=== PATIENT | female | born 1955 | race Asian ===

== ENCOUNTER 2019-11-12 00:20 | Inpatient (IN) | payer MEDICARE, MEDICAID ==
[~2019-11-12] VITALS: Ht 154.9 cm; Wt 48.3 kg
[2019-11-12] VITALS (8 sets, daily range): BP systolic 115–135; BP diastolic 61–85
[~2019-11-12 00:20] MED LIST: ACETAMINOP160 MG/51 ORAL; AMBIEN5 MG GT; AMLODIPINE BESY10 MG GT; CATAPRES0.1 MG GT; CRANBERRY425 MG GT; FAMOTIDINE40 MG/5 ML GT; IBUPROFEN600 MG GT; MOM30 ML GT; NORCO 10-325 T1 EACH GT; RILUZOLE50 M1 GT; SELENIUM200 MC2 GT; THEOPHYLLI GT; THERA-M CAPLET1 EAC1 GT
--- NOTE | 2019-11-12 00:25 | NUR ---
ED Nurse Note: brought in by [facility] accompanied by RT from [facility] c/o WBC 34.4. Trach Vented; received vent settings; verified by ERMD. Presents with no signs and symptoms of respiratory distress or fever. Resulted negative for covid 10/24. Changed into hospital gown; attached to monitor. Vitals stable. Rectal temp 98.6F. patient ao3; aphasic; spontaneous eye opening; tracks movement with eyes; able to make needs known via communication board; quadriplegic. EKG done at bedside by ERtmilton; NSR 86. Tracheostomy noted; portex 8; AC 16; TV 450; Peep 5; Fio2 40%. RT at bedside; PT tolerating vent settings; SPO2 98% RR 23. GT flushed and patent. Received verbal order from ERMD for renee insertion. Skin intact. IV established prior to arrival; right forearm 22g; flushed and patent. Repositioned for comfort; elevated bilateral upper and lower extremities per pt request. PUI airborne precaution obserbed. All safety measures met; side rails raised; bed locked at lowest postion; call scott and communication board within reach.
--- NOTE | 2019-11-12 00:30 | NUR ---
ED Nurse Note: iv access established. renee insterted. blood, initial lactic, blood cultures, urine, mrsa vre cre swab, covid swab collected; sent down to lab.
[2019-11-12 01:05] LABS: APPEARANCE,URINE CLEAR; BILIRUBIN, URINE NEGATIVE (NEGATIVE); COLOR,URINE PALE YELLOW; GLUCOSE, URINE (UA) NEGATIVE (NEGATIVE); KETONES,URINE NEGATIVE (NEGATIVE); LEUKOCYTE ESTERASE ,URINE 1+ (NEGATIVE); NITRITE,URINE NEGATIVE (NEGATIVE); PH,URINE 8 (4.5-8.0); PROTEIN,URINE NEGATIVE (NEGATIVE); UROBILINOGEN,URINE NORMAL MG/DL (0.0-1.0)
[2019-11-12 01:10] LABS: HEMATOCRIT 35.8 % (37.0-47.0); HEMOGLOBIN 11.5 G/DL (12.0-16.0); MEAN CORPUSCULAR VOLUME 105 FL (80-99); PLATELET COUNT 231 K/UL (150-450); RED BLOOD COUNT 3.42 M/UL (4.20-5.40); RED CELL DISTRIBUTION WIDTH 13.3 % (11.6-14.8)
[2019-11-12] MEDS ORDERED: ASPIR 8181 MG GT (01:19)
[2019-11-12] MEDS ORDERED: OMEPRAZOLE20 M2 GT (01:19)
[2019-11-12] MEDS ORDERED: MILK OF MA400 MG/51 GT (01:19)
[2019-11-12] MEDS ORDERED: ZOSYN 3.373.375 GM/1 IVPB (01:19)
[2019-11-12] MEDS ORDERED: BENADRYL25 MG ORAL (01:19)
[2019-11-12] MEDS ORDERED: AMBIEN5 MG GT (01:19)
[2019-11-12] MEDS ORDERED: HYDROCODON-ACE1 EA13 ORAL (01:19)
[2019-11-12 01:24] LABS: WHITE BLOOD COUNT 30.9 K/UL (4.8-10.8)
--- NOTE | 2019-11-12 01:24 | Emergency Room Report ---
History of Present Illness General Chief Complaint: Abnormal Labs Source: EMS Present Illness HPI Patient presents with reports of elevated white blood cell count Patient herself does have underlying dementia limits the history present illness there was no reports of vomiting or diarrhea patient has a tracheostomy And vent dependent There was no reports of any other rash Allergies: Coded Allergies: No Known Allergies (Unverified , 05/19/19) COVID-19 Screening Contact w/high risk pt: Yes Recent Travel to affected area: No Experienced COVID-19 symptoms?: No COVID-19 Testing performed [employer]: Yes COVID-19 Screening: Negative COVID-19 COVID-19 Testing Source: 10/24 @ [facility] [place] Patient History Limited by: medical condition Past Medical History: see triage record Reviewed Nursing Documentation: PMH: Agreed; PSxH: Agreed Nursing Documentation-PMH Hx Cardiac Problems: No - Aphonia, Dysphagia, Generalized muscle weakness Hx Hypertension: No - Joint contracture Hx Asthma: No - Chronic Respiratory Failure, Hypoxia, Hypercapnia Hx COPD: No - Tracheostomy Hx Cancer: No Hx Gastrointestinal Problems: Yes - Anemia, Gastrostomy Hx Neurological Problems: No Review of Systems All Other Systems: limited - Other than the ones mentioned in the history of present illness all others are reviewed however they do stay limited due to the patient's mental status Physical Exam Vital Signs Date Time Temp Pulse Resp B/P (MAP) Pulse Ox O2 Delivery O2 Flow Rate FiO2 11/12/19 00:21 98.6 83 23 128/67 (87) 98 Mechanical Ventilator 11/12/19 00:30 40 Sp02 EP Interpretation: reviewed, normal General Appearance: no apparent distress Head: normocephalic, atraumatic Eyes: bilateral eye PERRL, bilateral eye EOMI ENT: EOM grossly intact, normal pharynx Neck: other - Tracheostomy in place no obvious crepitus Respiratory: no respiratory distress, no retraction, crackles - Bilaterally Cardiovascular #1: regular rate, rhythm Gastrointestinal: non tender, soft Musculoskeletal: other - Patient moves both upper extremities equally Neurologic: responsive Skin: no rash Lymphatic: no adenopathy Procedures Critical Care Time Critical Care Time 50 minutes for multiple re-evaluations initial critical status concern for deterioration and possible not including any procedural time Medical Decision Making Diagnostic Impression: Primary Impression: Sepsis Additional Impression: Pneumonia ER Course Patient is a fairly complex patient with multiple differential to consideration including but not limited to cardiac cardiopulmonary and vascular emergencies Also consideration and concern for infectious process given the patient's abnormal blood work in the nursing facility is entertained Patient's blood work here reveals elevated white blood cell count x-ray was inconclusive therefore CT was obtained which does show bilateral infiltrates Along with questionable gallbladder edema Patient CT does show some abnormality General surgery was consulted patient initiated on IV antibiotics and admitted for further care Labs Test 11/12/19 00:25 White Blood Count 30.9 K/UL (4.8-10.8) Red Blood Count 3.42 M/UL (4.20-5.40) Hemoglobin 11.5 G/DL (12.0-16.0) Hematocrit 35.8 % (37.0-47.0) Mean Corpuscular Volume 105 FL (80-99) Mean Corpuscular Hemoglobin 33.6 PG (27.0-31.0) Mean Corpuscular Hemoglobin Concent 32.1 G/DL (32.0-36.0) Red Cell Distribution Width 13.3 % (11.6-14.8) Platelet Count 231 K/UL (150-450) Mean Platelet Volume 7.0 FL (6.5-10.1) Neutrophils (%) (Auto) % (45.0-75.0) Lymphocytes (%) (Auto) % (20.0-45.0) Monocytes (%) (Auto) % (1.0-10.0) Eosinophils (%) (Auto) % (0.0-3.0) Basophils (%) (Auto) % (0.0-2.0) Differential Total Cells Counted 100 Neutrophils % (Manual) 87 % (45-75) Lymphocytes % (Manual) 10 % (20-45) Monocytes % (Manual) 3 % (1-10) Eosinophils % (Manual) 0 % (0-3) Basophils % (Manual) 0 % (0-2) Band Neutrophils 0 % (0-8) Platelet Estimate Adequate Platelet Morphology Normal Urine Color Pale yellow Urine Appearance Clear Urine pH 8 (4.5-8.0) Urine Specific [place] 1.010 (1.005-1.035) Urine Protein Negative (NEGATIVE) Urine Glucose (UA) Negative (NEGATIVE) Urine Ketones Negative (NEGATIVE) Urine Blood Negative (NEGATIVE) Urine Nitrite Negative (NEGATIVE) Urine Bilirubin Negative (NEGATIVE) Urine Urobilinogen Normal MG/DL (0.0-1.0) Urine Leukocyte Esterase 1+ (NEGATIVE) Urine RBC 0-2 /HPF (0 - 2) Urine WBC 2-4 /HPF (0 - 2) Urine Squamous Epithelial Cells Few /LPF (NONE/OCC) Urine Bacteria None /HPF (NONE) Sodium Level 142 MMOL/L (136-145) Potassium Level 3.4 MMOL/L (3.5-5.1) Chloride Level 106 MMOL/L (98-107) Carbon Dioxide Level 25 MMOL/L (21-32) Anion Gap 11 mmol/L (5-15) Blood Urea Nitrogen 19 mg/dL (7-18) Creatinine 0.8 MG/DL (0.55-1.30) Estimat Glomerular Filtration Rate > 60 mL/min (>60) Glucose Level 140 MG/DL (74-106) Lactic Acid Level 1.60 mmol/L (0.4-2.0) Calcium Level 8.9 MG/DL (8.5-10.1) Total Bilirubin 0.6 MG/DL (0.2-1.0) Aspartate Amino Transf (AST/SGOT) 37 U/L (15-37) Alanine Aminotransferase (ALT/SGPT) 47 U/L (12-78) Alkaline Phosphatase 123 U/L (46-116) Total Creatine Kinase 77 U/L (26-308) Creatine Kinase MB 0.9 NG/ML (0.0-3.6) Creatine Kinase MB Relative Index 1.1 Troponin I 0.009 ng/mL (0.000-0.056) Pro-B-Type Natriuretic Peptide 178 pg/mL (0-125) Total Protein 7.4 G/DL (6.4-8.2) Albumin 3.3 G/DL (3.4-5.0) Globulin 4.1 g/dL Albumin/Globulin Ratio 0.8 (1.0-2.7) Lipase 293 U/L (73-393) Rhythm Strip Diag. Results EP Interpretation: yes Rate: 77 Rhythm: NSR, no PVC's, no ectopy CT/MRI/US Diagnostic Results CT/MRI/US Diagnostic Results : Impression CT abdomen pelvisIMPRESSION: 1. Cholelithiasis with suggestion of gallbladder wall thickening. Correlation with clinical findings is recommended to assess for the possibility of acute cholecystitis. Ultrasound may be helpful for further assessment. 2. Nonobstructing left renal stone. 3. Possible fecal impaction. 4. Significant atelectasis in the left lower lobe. There are also patchy opacities in the right lower lobe, including a nodular opacity which could be inflammatory in etiology. Cannot exclude pneumonia. However, neoplasm is also within the differential. For low-risk or high- risk patients consider a follow-up chest CT at 3 months. If unchanged consider an additional follow-up CT at 18-24 months. Alternatively (or additionally) PET/CT or tissue sampling could be performed. Last Vital Signs Date Time Temp Pulse Resp B/P (MAP) Pulse Ox O2 Delivery O2 Flow Rate FiO2 11/12/19 00:30 98.6 86 23 128/67 98 Mechanical Ventilator 40 Status: improved Disposition: ADMITTED INPATIENT Condition: Serious Referrals: Stas Kapoor MD (PCP) Sharri Soto DO Nov 12, 2019 01:24
[2019-11-12 01:43] LABS: ANION GAP 11 mmol/L (5-15); BLOOD UREA NITROGEN 19 mg/dL (7-18); CALCIUM 8.9 MG/DL (8.5-10.1); CARBON DIOXIDE 25 MMOL/L (21-32); CHLORIDE 106 MMOL/L (98-107); CREATININE 0.8 MG/DL (0.55-1.30); POTASSIUM 3.4 MMOL/L (3.5-5.1); SODIUM 142 MMOL/L (136-145)
[2019-11-12 01:56] LABS: ALANINE AMINOTRANSFERASE 47 U/L (12-78); ALBUMIN 3.3 G/DL (3.4-5.0); ALBUMIN/GLOBULIN RATIO 0.8 (1.0-2.7); ALKALINE PHOSPHATASE 123 U/L (46-116); ASPARTATE AMINO TRANSFERASE 37 U/L (15-37); BILIRUBIN,TOTAL 0.6 MG/DL (0.2-1.0); CKMB 0.9 NG/ML (0.0-3.6); CREATINE KINASE 77 U/L (26-308)
--- NOTE | 2019-11-12 01:58 | NUR ---
ED Nurse Note: patient sleeping in bed with no signs of acute distress. arousable to name and light stimuli. vitals remain stable to baseline. discussed plan of care; patient aware and cooperative to plan; awaiting pending CT scan.
[2019-11-12] MEDS ORDERED: cefTRIAXone 1 GM in NS 55 ML IVPB ONE (03:00)
[2019-11-12] MEDS ORDERED: Azithromycin 500 MG in NS 275 ML IV ONE (03:00)
--- NOTE | 2019-11-12 03:18 | NUR ---
ED Nurse Note: Patient down to CT with electronic train control technician and RT. Attached to monitor; vitals stable.
--- NOTE | 2019-11-12 03:45 | NUR ---
ED Nurse Note: patient back from imaging without incident. reattached to monitor and vent. repositioned for comfort. patient presents with no acute signs of distress. denies respiratory distress or pain. vitals stable to baseline. all safety measures met; will continue to monitor.
--- NOTE | 2019-11-12 04:05 | NUR ---
TRANSFER TO FLOOR: Patient transferred to [facility] 236 as ordered, per chiara bain. Report given to MARCELLUS russo. patient stable for transfer. transported to unit via gurney with RT, Lux and RN. PUI airborne transport precautions observed. belongings and admission packet sent with patient.
--- NOTE | 2019-11-12 04:06 | Diagnostic Imaging Report ---
EXAM: CT Abdomen and Pelvis Without Intravenous Contrast CLINICAL HISTORY: PAIN TECHNIQUE: Axial computed tomography images of the abdomen and pelvis without intravenous contrast. CTDI is 3.9 mGy and DLP is 214 mGy-cm. One or more of the following dose reduction techniques were used: automated exposure control, adjustment of the mA and/or kV according to patient size, use of iterative reconstruction technique. COMPARISON: No relevant prior studies available. FINDINGS: Limitations: Assessment of the abdominal and pelvic viscera slightly limited in the absence of intravenous and oral contrast. Lung bases: There is consolidation in the left lower lobe with shift of mediastinum to the left, supporting a diagnosis of atelectasis. However, patchy opacity with consolidation in the right lower lobe could represent pneumonia and/or atelectasis. There is a nodular opacity in the right lower lobe posteriorly posterior basilar segment which measures 1.3 x 1.4 x 1.6 cm. This may be inflammatory in etiology but neoplasm cannot be excluded. ABDOMEN: Liver: Unremarkable. Gallbladder and bile ducts: Several gallstones are noted. There is suggestion of gallbladder wall thickening. No ductal dilation. Pancreas: Unremarkable. No ductal dilation. Spleen: Unremarkable. No splenomegaly. Adrenals: Unremarkable. No mass. Kidneys and ureters: The right renal collecting system is prominent but without lino hydronephrosis. There is a 7 mm nonobstructing stone in the lower pole of the left kidney. Both ureters are normal as seen. Stomach and bowel: A gastrostomy tube is in appropriate position. There is no bowel obstruction. A moderate amount of stool is noted throughout the colon, particularly within the distal sigmoid colon and rectum, possibly representing mild fecal impaction. There are no inflammatory changes in the bowel mesentery.. PELVIS: Appendix: No findings to suggest acute appendicitis. Bladder: There is an indwelling Feldman catheter was is presumed to be clamped as the bladder is moderately distended with fluid, with a small air-fluid level. No stones. Reproductive: There is a 9 mm calcification in the fundus of the uterus, likely small calcified uterine fibroids. The adnexa are unremarkable. ABDOMEN and PELVIS: Intraperitoneal space: Unremarkable. No free air. No significant fluid collection. Bones/joints: No acute fracture. No dislocation. Soft tissues: Unremarkable. Vasculature: Unremarkable. Lymph nodes: There are small calcified lymph nodes in the subcarinal and left hilar regions. IMPRESSION: 1. Cholelithiasis with suggestion of gallbladder wall thickening. Correlation with clinical findings is recommended to assess for the possibility of acute cholecystitis. Ultrasound may be helpful for further assessment. 2. Nonobstructing left renal stone. 3. Possible fecal impaction. 4. Significant atelectasis in the left lower lobe. There are also patchy opacities in the right lower lobe, including a nodular opacity which could be inflammatory in etiology. Cannot exclude pneumonia. However, neoplasm is also within the differential. For low-risk or high- risk patients consider a follow-up chest CT at 3 months. If unchanged consider an additional follow-up CT at 18-24 months. Alternatively (or additionally) PET/CT or tissue sampling could be performed.
--- NOTE | 2019-11-12 04:10 | NUR ---
NURSE NOTES: pt transferred to the unit via gurney. Awake, A/O x3, able to make needs known through communication board. SR noted. Trach to vent, Portex 8, AC 16/450/40%/5. GT intact and flushing well. F/C intact and draining well. IV on R FA 22G, asymptomatic. Skin intact. Belonging checked. Bed in the lowest position. Side rails up x3. Call light within reach. Will continue to monitor.
--- NOTE | 2019-11-12 05:00 | NUR ---
NURSE NOTES: notified regarding new admit and admit orders received. Pt sleeping in the bed. Will continue to monitor.
[2019-11-12] MEDS ORDERED: HYDROcodone/Acetamin 10/325 tab ORAL SCH (05:45)
[2019-11-12] MEDS ORDERED: DiphenhydrAMINE 25mg/10ml Elixir GT PRN (05:45)
[2019-11-12] MEDS ORDERED: Heparin 1000 units/ml 1ml Vial INJ PRN (06:04)
--- NOTE | 2019-11-12 07:30 | NUR ---
HAND-OFF: Report given to MARCELLUS Caldera.
--- NOTE | 2019-11-12 08:06 | NUR ---
NURSE NOTES: Received patient from MARCELLUS Saleem. Patient is on bed with open eyes with no signs of distress. Patient is able to express her needs with her facial expression and the communication board. Patient is trach to vent Portex 8, AC 16, TV 450, Fio2 of 40%, and PEEP of 5. Patient is on G-tube feeding running Nepro at 55mL/hr. IV site is on right upper arm noted. Bed is at its lowest position, locked, call light in reach, and x3 bed rails are up. Will continue to monitor.
[2019-11-12] MEDS: Theophylline 80mg/15ml GT SCH ×2 (09:20→20:49)
[2019-11-12] MEDS: Heparin 5000 units/ml inj SUBQ SCH ×2 (09:22→20:52)
[2019-11-12] MEDS: Acetaminophen 650mg/20.3ml GT PRN ×2 (09:41→22:32)
--- NOTE | 2019-11-12 09:41 | NUR ---
NURSE NOTES: Clarified HIDA scan order from Dr. Kapoor. said to wait for Covid-19 result before HIDA scan.
--- NOTE | 2019-11-12 09:47 | NUR ---
RD ASSESSMENT & RECOMMENDATIONS SEE CARE ACTIVITY FOR COMPLETE ASSESSMENT DAILY ESTIMATED NEEDS: Needs based on Critical care, 48kg 22-28 kcals/kg 1248-1673 total kcals 1.2-2 g protein/kg 58-96 g total protein 25-30 mL/kg 4215-8232 total fluid mLs NUTRITION DIAGNOSIS: Swallowing difficulty r/t respiratory status as evidenced by pt w/ ALS, vent dep via trach, w/ GT feeds. CURRENT TF:Glucerna 1.2 @55ml/hr x20 hrs ENTERAL NUTRITION RECOMMENDATIONS: Glucerna 1.2 @ 55ml/hr x20 hrs to provide 1100ml, 1320 kcal, 66g pro, 886ml free H2O - Maintain current TF order - HOB over 30 degrees - Water flush of 170ml q 8hrs ADDITIONAL RECOMMENDATIONS: 1) Per SNF record: last hi=775kwt (10/28), HT=61" 2) Check lytes daily, replete as needed (low K) 3) Monitor BGs, need for NISS 4) Check A1C for eval of glycemic control
--- NOTE | 2019-11-12 10:15 | Consultation ---
DATE OF CONSULTATION: 11/12/2019 PULMONARY CONSULTATION CONSULTING PHYSICIAN: Stas Kapoor MD REASON FOR CONSULTATION: Respiratory failure. REASON FOR ADMISSION: Sepsis. HISTORY OF PRESENT ILLNESS: The patient is a 64-year-old female, who presents with significant leukocytosis with concern for cholecystitis. The patient is seen and evaluated in the emergency room. The patient also noted to have significant leukocytosis at the [facility], was transferred for further evaluation and intervention. The patient is chronically ill and bedbound. The patient is a functional quadriplegic. She has history of ALS and is unable to get off the ventilator. The patient has chronic pain, chronic insomnia, chronic debility. The patient events were reviewed. group home notes reviewed. ER notes reviewed. Case discussed with the ER physician. PAST MEDICAL HISTORY: Notable for respiratory failure, chronic; generalized muscle weakness; generalized muscle atrophy; ALS; anemia; G-tube; chronic insomnia; and chronic pain. MEDICATIONS: Reviewed. ALLERGIES: Reviewed. SOCIAL HISTORY: Resides at [facility]. Nonsmoker, nondrinker. Essentially bedbound and fully dependent. REVIEW OF SYSTEMS: Unobtainable. FAMILY HISTORY: Otherwise noncontributory. PHYSICAL EXAMINATION: GENERAL: An ill-appearing female. VITAL SIGNS: Reviewed. Temperature 98.2, pulse 92, respirations 18, and blood pressure 122/80. Saturation 99%. HEENT: Overall negative. The patient is able to move her eyes. NECK: Supple. Tracheostomy is midline. LUNGS: With moderate air entry. No rhonchi. CARDIAC: S1, S2. Regular rate and rhythm without murmurs. ABDOMEN: Soft. G-tube in place. EXTREMITIES: No cyanosis or clubbing. Atrophy noted. NEUROLOGIC: Functional quadriplegic. LABORATORY DATA: Reviewed. CT with cholelithiasis with suggestion of gallbladder wall thickening. Left renal stone. Fecal impaction. Atelectasis, left lower lobe with questionable pneumonia. IMPRESSION: 1. Leukocytosis with concern for sepsis. 2. Possible cholecystitis, cholelithiasis. 3. Functional quadriplegic. 4. ALS. 5. Tracheostomy. 6. G-tube. 7. Mild protein-calorie malnutrition. 8. Anemia. RECOMMENDATIONS: Supportive care. IV antibiotics. ID evaluation. Surgical evaluation. HIDA scan if able. Resume feedings and monitor. Resume ventilator support. Resume [facility] medications and pain control, and we will follow clinically and discharge once stable. Stas Kapoor M.D. DR: SHAN JOB#: [id number] CC:
[2019-11-12] MEDS: Vancomycin 750mg/D5W 275ml IVPB SCH ×2 (10:53)
--- NOTE | 2019-11-12 11:51 | NUR ---
CASE MANAGEMENT: INITIAL REVIEW 64YR OLD [facility] CC: ABNORMAL LAB; ELEVATED WBC 34.4 SI:SEPSIS . TRACHEOSTOMY ASIA . PNA 98.6 83 23 128/67 98% ON MECHANICAL VENT WBC 30.9 K+3.4 BUN 19 BG 140 ALKP 123 BNP 178 IS:IVF NS BOLUS X1 IV ROCEPHIN X1 IV [address] X1 [address] Abdomen Pelvis WO Contrast-possibility of acute cholecystitis.Nonobstructing left renal stone. Possible fecal impaction.Significant atelectasis in the left lower lobe. There are also patchy opacities in the right lower lobe, including a nodular opacity which could be inflammatory in etiology. \: 2W STEP DOWN UNIT DCP: BACK TO [facility] WHEN STABLE PLAN: US ABD NM HIDA SCAN CONT VENT SUPPORT SPUTUM CX R/O COVID-19 ISOLATION PRECAUTION CASE MANAGEMENT: REVIEW SI:SEPSIS . PNA 98.6 83 23 128/67 98% ON MECHANICAL VENT TRACH WBC 30.9 K+3.4 BUN 19 BG 140 ALKP 123 BNP 178 IS:IV VANCOMYCIN QD IV ZOSYN TID NORVASC GT BID HEPARIN SQ BID THEOPHYLLINE GT BID TYLENOL GT Q4HR/PRN \: 2W STEP DOWN UNIT DCP: BACK TO [facility] WHEN STABLE PLAN: US ABD NM HIDA SCAN CONT VENT SUPPORT SPUTUM CX R/O COVID-19 ISOLATION PRECAUTION
--- NOTE | 2019-11-12 12:59 | Diagnostic Imaging Report ---
Indication: Chest pain Technique: XRAY Chest 1v Comparison: 05/25/2019 Findings: There is a dense consolidation in the retrocardiac left lung. Some patchy opacities also noted within the right lower lung. A tracheostomy tube is noted. Heart size and mediastinal contours are stable. No evidence of pneumothorax. Osseous structures demonstrate no acute abnormality. Impression: Dense retrocardiac consolidation which may be related to atelectasis and/or pneumonia. Additional patchy opacities in the right lower lung. Possibility of multifocal pneumonia not excluded. Relation clinical findings and follow-up recommended. Indwelling tracheostomy tube.
[2019-11-12] MEDS: Piperacillin/Tazobactam 3.375 GM in NS 110 ML IVPB SCH ×2 (13:16→22:31)
--- NOTE | 2019-11-12 14:10 | Consultation ---
History of Present Illness General Date patient seen: Nov 12, 2019 Reason for Hospitalization: Abnormal Labs Present Illness HPI This is a 64-year-old female multiple medical comorbidities vent dependent on tracheostomy care dependent long-term patient who presented with significant leukocytosis 30,[address] identified cholecystitis. Surgery called to evaluate and assist with care. Patient seen, patient evaluated, chart reviewed. CODE STATUS pending. Patient awake alert able to respond but cannot talk given tracheostomy. Denies any current pain. States she is hungry. Allergies: Coded Allergies: No Known Allergies (Unverified , 05/19/19) COVID-19 Screening Contact w/high risk pt: Yes Recent Travel to affected area: No Experienced COVID-19 symptoms?: No Medication History Scheduled Amlodipine Besylate* (Amlodipine Besylate*), 10 MG GT DAILY, (Reported) Aspirin* (Aspir 81*), 81 MG GT DAILY, (Reported) Cranberry Extract (Cranberry), 425 MG GT BID, (Reported) Famotidine (Famotidine), 40 MG GT BID, (Reported) Hydrocodone Bit/Acetaminophen 10-325* (Hydrocodon-Acetaminophn 10-325*), 1 TAB ORAL Q4H, (Reported) Ibuprofen (Motrin), 400 MG GT Q6HR, (Reported) Magnesium Hydroxide (Milk of Magnesia), 30 ML ORAL BEDTIME, (Reported) Magnesium Hydroxide* (Milk Of Magnesia*), 30 ML GT DAILY, (Reported) Multivits,Ca,Minerals/Iron/Fa (Thera-M Caplet), 1 EACH GT DAILY, (Reported) Omeprazole (Omeprazole), 20 MG GT DAILY, (Reported) Uqakehumunke-Fqug-Lildwtmj,Iso (Zosyn 3.375 Gm Pre Mix-Bag), 3.375 GM IVPB EVERY 8 HOURS, (Reported) Riluzole* (Riluzole*), 50 MG GT EVERY 12 HOURS, (Reported) Selenomethionine (Selenium), 200 MCG GT BID, (Reported) Theophylline Anhydrous (Theophylline), 80 MG GT BID, (Reported) Scheduled PRN Acetaminophen* (Acetaminophen*), 640 MG ORAL DAILY PRN for Mild Pain/Temp > 100.5, (Reported) Clonidine Hcl* (Catapres*), 0.1 MG GT EVERY 4 HOURS PRN for For High Blood Pressure, (Reported) Diphenhydramine Hcl* (Benadryl*), 25 MG ORAL Q6H PRN for Itching, (Reported) Hydrocodone Bit/Acetaminophen 10-325* ([place] 10-325*), 1 TAB GT Q8HR PRN for For Pain, (Reported) Zolpidem Tartrate* (Ambien*), 5 MG GT BEDTIME PRN for Insomnia, (Reported) Zolpidem Tartrate* (Ambien*), 5 MG GT BEDTIME PRN for Insomnia, (Reported) Patient History Limited by: medical condition History Provided By: Patient, Medical Record, PMD Healthcare decision maker Resuscitation status Advanced Directive on File Past Medical/Surgical History Past Medical/Surgical History: (1) SOB (shortness of breath) (2) Elevated troponin (3) Hypokalemia (4) ALS (amyotrophic lateral sclerosis) (5) Chest pain (6) Pneumonia (7) Sepsis Review of Systems Review of Symptoms General ROS: no weight loss or fever Psychological ROS: no depression or mood changes, no memory loss Ophthalmic ROS: no visual changes or eye irritation ENT ROS: no nasal congestion, hearing loss, dizziness Allergy and Immunology ROS: no allergic symptoms or urticaria Hematological and Lymphatic ROS: no swollen glands, unusual bleeding or bruising Endocrine ROS: no polyuria, polydipsia, weight changes, temperature intolerance Respiratory ROS: no cough, shortness of breath, or wheezing Cardiovascular ROS: no chest pain or dyspnea on exertion Gastrointestinal ROS: denies abdominal pain, bright red blood in stool. Musculoskeletal ROS: no myalgias or arthralgias Neurological ROS: no TIA or stroke symptoms Dermatological ROS: no new or changing skin lesions, rashes or pruritis Physical Exam Physical Exam General appearance: alert, cooperative, no distress, appears stated age Head: Normocephalic, without obvious abnormality, atraumatic Eyes: conjunctivae/corneas clear. PERRL, EOM's intact. Fundi benign Throat: Lips, mucosa, and tongue normal. Teeth and gums normal Neck: supple, symmetrical, trachea midline, no adenopathy, thyroid: not enlarged, symmetric, no tenderness/mass/nodules, no carotid bruit and no JVD trach Lungs: clear to auscultation bilaterally Heart: regular rate and rhythm, S1, S2 normal, no murmur, click, rub or gallop Abdomen: soft, non-tender. Bowel sounds normal. No masses, no organomegaly Extremities: extremities normal, atraumatic, no cyanosis or edema Pulses: 2+ and symmetric Skin: Skin color, texture, turgor normal. No rashes or lesions Neurologic: Grossly normal Last 24 Hour Vital Signs Date Time Temp Pulse Resp B/P (MAP) Pulse Ox O2 Delivery O2 Flow Rate FiO2 11/12/19 12:00 97.9 93 22 115/79 (91) 100 11/12/19 12:00 Mechanical Ventilator 11/12/19 12:00 40 11/12/19 11:51 85 11/12/19 11:16 100 19 40 11/12/19 09:21 92 122/80 11/12/19 08:00 40 11/12/19 08:00 98.2 92 18 122/80 (94) 99 11/12/19 08:00 Mechanical Ventilator 11/12/19 07:45 90 11/12/19 07:09 96 17 100 Mechanical Ventilator 40 11/12/19 07:09 96 17 40 11/12/19 04:36 Mechanical Ventilator 11/12/19 04:22 101 11/12/19 04:10 98.6 76 20 123/61 100 Mechanical Ventilator 40 11/12/19 04:00 98.6 76 20 123/61 100 Mechanical Ventilator 40 11/12/19 03:32 72 20 40 11/12/19 03:00 98.6 73 14 121/66 100 Mechanical Ventilator 40 11/12/19 01:55 98.6 75 16 117/61 100 Mechanical Ventilator 40 11/12/19 00:30 70 22 40 11/12/19 00:30 40 11/12/19 00:30 98.6 86 23 128/67 98 Mechanical Ventilator 40 11/12/19 00:21 98.6 83 23 128/67 (87) 98 Mechanical Ventilator Intake and Output 11/11/19 11/12/19 19:00 07:00 Intake Total 0 ml Output Total 1220 ml Balance -1220 ml Intake Oral 0 ml Tube Feeding 0 ml Output Urine Total 1220 ml Laboratory Tests Test 11/12/19 00:25 White Blood Count 30.9 K/UL (4.8-10.8) *H Red Blood Count 3.42 M/UL (4.20-5.40) L Hemoglobin 11.5 G/DL (12.0-16.0) L Hematocrit 35.8 % (37.0-47.0) L Mean Corpuscular Volume 105 FL (80-99) H Mean Corpuscular Hemoglobin 33.6 PG (27.0-31.0) H Mean Corpuscular Hemoglobin Concent 32.1 G/DL (32.0-36.0) Red Cell Distribution Width 13.3 % (11.6-14.8) Platelet Count 231 K/UL (150-450) Mean Platelet Volume 7.0 FL (6.5-10.1) Neutrophils (%) (Auto) % (45.0-75.0) Lymphocytes (%) (Auto) % (20.0-45.0) Monocytes (%) (Auto) % (1.0-10.0) Eosinophils (%) (Auto) % (0.0-3.0) Basophils (%) (Auto) % (0.0-2.0) Differential Total Cells Counted 100 Neutrophils % (Manual) 87 % (45-75) H Lymphocytes % (Manual) 10 % (20-45) L Monocytes % (Manual) 3 % (1-10) Eosinophils % (Manual) 0 % (0-3) Basophils % (Manual) 0 % (0-2) Band Neutrophils 0 % (0-8) Platelet Estimate Adequate Platelet Morphology Normal Urine Color Pale yellow Urine Appearance Clear Urine pH 8 (4.5-8.0) Urine Specific [place] 1.010 (1.005-1.035) Urine Protein Negative (NEGATIVE) Urine Glucose (UA) Negative (NEGATIVE) Urine Ketones Negative (NEGATIVE) Urine Blood Negative (NEGATIVE) Urine Nitrite Negative (NEGATIVE) Urine Bilirubin Negative (NEGATIVE) Urine Urobilinogen Normal MG/DL (0.0-1.0) Urine Leukocyte Esterase 1+ (NEGATIVE) H Urine RBC 0-2 /HPF (0 - 2) Urine WBC 2-4 /HPF (0 - 2) Urine Squamous Epithelial Cells Few /LPF (NONE/OCC) Urine Bacteria None /HPF (NONE) Sodium Level 142 MMOL/L (136-145) Potassium Level 3.4 MMOL/L (3.5-5.1) L Chloride Level 106 MMOL/L (98-107) Carbon Dioxide Level 25 MMOL/L (21-32) Anion Gap 11 mmol/L (5-15) Blood Urea Nitrogen 19 mg/dL (7-18) H Creatinine 0.8 MG/DL (0.55-1.30) Estimat Glomerular Filtration Rate > 60 mL/min (>60) Glucose Level 140 MG/DL (74-106) H Lactic Acid Level 1.60 mmol/L (0.4-2.0) Calcium Level 8.9 MG/DL (8.5-10.1) Total Bilirubin 0.6 MG/DL (0.2-1.0) Aspartate Amino Transf (AST/SGOT) 37 U/L (15-37) Alanine Aminotransferase (ALT/SGPT) 47 U/L (12-78) Alkaline Phosphatase 123 U/L (46-116) H Total Creatine Kinase 77 U/L (26-308) Creatine Kinase MB 0.9 NG/ML (0.0-3.6) Creatine Kinase MB Relative Index 1.1 Troponin I 0.009 ng/mL (0.000-0.056) Pro-B-Type Natriuretic Peptide 178 pg/mL (0-125) H Total Protein 7.4 G/DL (6.4-8.2) Albumin 3.3 G/DL (3.4-5.0) L Globulin 4.1 g/dL Albumin/Globulin Ratio 0.8 (1.0-2.7) L Lipase 293 U/L (73-393) Height (Feet): 5 Height (Inches): 1.00 Weight (Pounds): 106 Medications Current Medications Medications (Trade) Dose Ordered Sig/Kunal Route PRN Reason Start Time Stop Time Status Last Admin Dose Admin Acetaminophen (Tylenol) 650 mg Q4H PRN GT Mild Pain (Pain Scale 1-3) 11/12/19 05:30 12/12/19 05:29 11/12/19 09:41 Acetaminophen/ Hydrocodone Bitart ([place] 10/325) 1 tab Q8H PRN GT For Pain 11/12/19 05:45 11/19/19 05:44 Al Hydroxide/Mg Hydroxide (Mylanta) 30 ml Q4H PRN GT stomach upset 11/12/19 05:30 12/12/19 05:29 Amlodipine Besylate (Norvasc) 10 mg DAILY GT 11/12/19 09:00 12/12/19 08:59 11/12/19 09:21 Clonidine HCl (Catapres Tab) 0.1 mg Q4H PRN GT SBP>160 11/12/19 05:45 02/10/20 05:44 Diphenhydramine HCl (Benadryl) 25 mg Q6H PRN GT Itching 11/12/19 05:45 12/12/19 05:44 Heparin Sodium (Porcine) (Heparin 5000 units/ml) 5,000 units EVERY 12 HOURS SUBQ 11/12/19 09:00 12/27/19 08:59 11/12/19 09:22 Heparin Sodium (Porcine) (Heparin) 2,000 unit ONCE PRN INJ RADIOLOGY 11/12/19 06:04 11/12/19 23:59 Lansoprazole (Prevacid) 30 mg DAILY GT 11/12/19 09:00 12/12/19 08:59 11/12/19 09:20 Magnesium Hydroxide (Mom) 30 ml BEDTIME GT 11/12/19 21:00 12/12/19 20:59 Piperacillin Sod/ Tazobactam Sod 3.375 gm/Sodium Chloride 110 ml @ 27.5 mls/hr Q8HR IVPB 11/12/19 14:00 11/19/19 13:59 11/12/19 13:16 Theophylline (Theophylline) 80 mg Q12HR GT 11/12/19 09:00 02/10/20 08:59 11/12/19 09:20 Vancomycin HCl (Vanco pharmacy to dose) 1 ea DAILY PRN MISC Per rx protocol 11/12/19 05:30 12/12/19 05:29 Vancomycin HCl 750 mg/Dextrose 275 ml @ 183.333 mls/hr Q24H IVPB 11/12/19 11:00 11/17/19 10:59 11/12/19 10:53 Zolpidem Tartrate (Ambien) 5 mg BEDTIME PRN GT Insomnia 11/12/19 05:45 11/19/19 05:44 Assessment/Plan Problem List: (1) Pneumonia ICD Codes: J18.9 - Pneumonia, unspecified organism SNOMED: 448193747 (2) Hypokalemia ICD Codes: E87.6 - Hypokalemia SNOMED: 41793798 (3) SOB (shortness of breath) ICD Codes: R06.02 - Shortness of breath SNOMED: 654846802 (4) Sepsis Assessment & Plan: 64-year-old female significant leukocytosis 30,000, anemia, CT as below potential cholecystitis. Surgery called to evaluate. Patient seen patient evaluated chart reviewed patient denies any discomfort. Unable to speak but she can follow directions and mouth or voice herself with facial reactions. When asked about pain denies states she is hungry when palpated in the right upper quadrant denies any pain no abdominal tenderness on examination. Labs noted imaging reviewed. Ultrasound abdomen ordered to evaluate gallbladder more specific than CT scan continue antibiotics per infectious disease IV fluids okay for diet from surgical standpoint Based on clinical examination unlikely cholecystitis no Hardwick's no tenderness no abdominal complaints Potential pneumonia Preventative measures taken air mattress given patient's baseline condition malnutrition and her bedbound condition. OPTi foam presentation dressings applied and bony prominences Turn every 2 hours Nutritional optimization ABDOMEN: Liver: Unremarkable. Gallbladder and bile ducts: Several gallstones are noted. There is suggestion of gallbladder wall thickening. No ductal dilation. Pancreas: Unremarkable. No ductal dilation. Spleen: Unremarkable. No splenomegaly. Adrenals: Unremarkable. No mass. Kidneys and ureters: The right renal collecting system is prominent but without lino hydronephrosis. There is a 7 mm nonobstructing stone in the lower pole of the left kidney. Both ureters are normal as seen. Stomach and bowel: A gastrostomy tube is in appropriate position. There is no bowel obstruction. A moderate amount of stool is noted throughout the colon, particularly within the distal sigmoid colon and rectum, possibly representing mild fecal impaction. There are no inflammatory changes in the bowel mesentery.. PELVIS: Appendix: No findings to suggest acute appendicitis. Bladder: There is an indwelling Feldman catheter was is presumed to be clamped as the bladder is moderately distended with fluid, with a small air-fluid level. No stones. Reproductive: There is a 9 mm calcification in the fundus of the uterus, likely small calcified uterine fibroids. The adnexa are unremarkable. ABDOMEN and PELVIS: Intraperitoneal space: Unremarkable. No free air. No significant fluid collection. Bones/joints: No acute fracture. No dislocation. Soft tissues: Unremarkable. Vasculature: Unremarkable. Lymph nodes: There are small calcified lymph nodes in the subcarinal and left hilar regions. IMPRESSION: 1. Cholelithiasis with suggestion of gallbladder wall thickening. Correlation with clinical findings is recommended to assess for the possibility of acute cholecystitis. Ultrasound may be helpful for further assessment. 2. Nonobstructing left renal stone. 3. Possible fecal impaction. 4. Significant atelectasis in the left lower lobe. ICD Codes: A41.9 - Sepsis, unspecified organism SNOMED: 61414155 (5) Chest pain ICD Codes: R07.9 - Chest pain, unspecified SNOMED: 07930382 (6) ALS (amyotrophic lateral sclerosis) ICD Codes: G12.21 - Amyotrophic lateral sclerosis SNOMED: 50600926 (7) Elevated troponin ICD Codes: R79.89 - Other specified abnormal findings of blood chemistry SNOMED: 052493896, 395235748, 286766899 Aly Awad Nov 12, 2019 14:10
--- NOTE | 2019-11-12 16:00 | Consultation ---
DATE OF CONSULTATION: 11/12/2019 INFECTIOUS DISEASES CONSULTATION CONSULTING PHYSICIAN: Thai Manning MD. REFERRING PHYSICIAN: Stas Kapoor MD. REASON FOR CONSULTATION: Leukocytosis. HISTORY OF PRESENTING ILLNESS: This is a 64-year-old lady with history of respiratory failure, status post tracheostomy, status post G-tube placement, muscle weakness, dysphagia, who comes in with leukocytosis. An Infectious Diseases consultation has been obtained for antibiotics. PAST MEDICAL HISTORY: 1. History of dysphagia. 2. Status post G-tube placement. 3. Respiratory failure, status post tracheostomy. 4. History of anemia. 5. Dementia. SOCIAL HISTORY: Unknown. FAMILY HISTORY: Unknown. REVIEW OF SYSTEMS: Unable to obtain currently. MEDICATIONS: As an inpatient, she is on milk of magnesia, Zosyn, IV vancomycin, subcutaneous heparin, amlodipine, theophylline, lansoprazole, heparin, clonidine, Benadryl, [place], Ambien, Tylenol, Mylanta. ALLERGIES: No known drug allergies. PHYSICAL EXAMINATION: VITAL SIGNS: Temperature of 98.2, T-max of 98.6, pulse of 92, respiratory rate 18, blood pressure 122/80, O2 saturation of 99%. Examination deferred due to possibility of COVID-19. LABORATORY AND DIAGNOSTIC DATA: White count 30.9, hemoglobin 11.5, hematocrit 35.8, MCV 105, platelet count of 231,000 with neutrophils of 67%. Sodium 142, potassium 3.4, chloride 106, bicarb 25, BUN 19, creatinine 0.8, glucose 140, calcium 8.9. Total bilirubin 0.6. AST 37, ALT 47, alkaline phosphatase 123. CK of 77, CK-MB 0.9. Troponin 0.009. Beta natriuretic peptide 178. Total protein 7.4. Albumin 3.3, lipase of 293. UA showing [address] to [address] abdomen and pelvis showing cholelithiasis with suggestion of gallbladder wall thickening, rule out cholecystitis, nonobstructing left renal stone, atelectasis left lower lobe, patchy opacities in the right lower lobe. ASSESSMENT: This is a 64-year-old lady with history of respiratory failure, status post tracheostomy, dysphagia, status post G-tube placement, dementia, who comes in with leukocytosis and was found to have: 1. Possible cholecystitis. 2. Rule out COVID-19 pneumonia. 3. Respiratory failure. 4. Leukocytosis. PLAN: 1. Continue IV vancomycin and Zosyn. 2. Continue isolation. 3. COVID-19 test is pending. 4. We will order sputum for Gram stain and culture. 5. We will order a HIDA scan. 6. We will follow up cultures and adjust antibiotics accordingly. I would like to thank, Dr. Kapoor for this consultation. Thai Manning M.D. DR: GROVER JOB#: [id number] CC: Stas Kapoor MD.; Fax#: [phone]
[2019-11-12] MEDS: HYDROcodone/Acetamin 10/325 tab GT PRN (16:16)
[2019-11-12] MEDS ORDERED: NS 275ml ONE (17:27)
--- NOTE | 2019-11-12 17:50 | NUR ---
NURSE NOTES: Sputum specimen is collected, will sent to lab.
--- NOTE | 2019-11-12 19:47 | NUR ---
HAND-OFF: Report given to MARCELLUS Merida. Patient is stable at this moment and endorsed plan of care.
--- NOTE | 2019-11-12 19:48 | NUR ---
NURSE NOTES: received pt from Kacie RN., and Verenice RN., pt is awake and resting on the bed. Aox3 at this time. pt's trach in place, no SOB noted, O2sat is at 99%. pt's Gtube site intact, clean, and patent. right FA 22G intact, clean, and patent. Feldman cath is draining well with gravity. call light within reach. bed at the lowest position, alarmed, and locked. will continue to monitor pt with plan of care.
[2019-11-12] MEDS: Milk of Magnesia 30ml Ud GT SCH (20:49)
[2019-11-12] MEDS: Zolpidem 5mg tab GT PRN (20:57)
[2019-11-13] VITALS: BP 128/70
[2019-11-13 04:00] VITALS: BP 126/63
[2019-11-13] MEDS: Piperacillin/Tazobactam 3.375 GM in NS 110 ML IVPB SCH ×3 (05:23→21:27)
[2019-11-13] MEDS: HYDROcodone/Acetamin 10/325 tab GT PRN ×3 (05:30→22:15)
[2019-11-13 05:55] LABS: HEMATOCRIT 38.2 % (37.0-47.0); HEMOGLOBIN 12.7 G/DL (12.0-16.0); MEAN CORPUSCULAR VOLUME 100 FL (80-99); PLATELET COUNT 278 K/UL (150-450); RED BLOOD COUNT 3.82 M/UL (4.20-5.40); RED CELL DISTRIBUTION WIDTH 12.9 % (11.6-14.8); WHITE BLOOD COUNT 16.4 K/UL (4.8-10.8)
--- NOTE | 2019-11-13 06:00 | NUR ---
NURSE NOTES: cleaned pt, small BM noted, new gown provided, new blanket provided. oral care given. no SOB noted. no bleeding noted at this time. call light within reach.
[2019-11-13 06:20] LABS: ALANINE AMINOTRANSFERASE 31 U/L (12-78); ALBUMIN 3.6 G/DL (3.4-5.0); ALBUMIN/GLOBULIN RATIO 0.8 (1.0-2.7); ALKALINE PHOSPHATASE 131 U/L (46-116); AMYLASE 48 U/L (25-115); ANION GAP 13 mmol/L (5-15); ASPARTATE AMINO TRANSFERASE 18 U/L (15-37); BILIRUBIN,TOTAL 0.4 MG/DL (0.2-1.0); BLOOD UREA NITROGEN 13 mg/dL (7-18); CALCIUM 9.6 MG/DL (8.5-10.1); CARBON DIOXIDE 23 MMOL/L (21-32); CHLORIDE 107 MMOL/L (98-107); CREATININE 0.7 MG/DL (0.55-1.30); POTASSIUM 2.8 MMOL/L (3.5-5.1); SODIUM 145 MMOL/L (136-145)
--- NOTE | 2019-11-13 06:48 | NUR ---
NURSE NOTES: left message to Dr. Kapoor regarding low potassium 2.8. Will wait for call back.
--- NOTE | 2019-11-13 07:10 | NUR ---
HAND-OFF: Report given to Ata GERMAIN., pt remains stable condition. endorsed plan of care.
--- NOTE | 2019-11-13 07:15 | NUR ---
NURSE NOTES: Received change of shift report from Anju GERMAIN. Pt is awake, alert, on trach to vent, able to communicate via letter/board, oriented x2 to name/purpose. Portex 8.0 with vent settings AC16, VT450, Peep 5, FI02 40% at 99% O2Sat, with slightly diminished bilateral lung sounds. NSR on nurse monitoring, HR 75, with slightly weak peripheral pulse on palpation. Temp 98.2F axillary. GT with feeding Glucerna 1.2 infusing at 40ml/hour, with zero residual. Abdomen is round, soft, nontender to touch with hypoactive bowel sounds. Feldman catheter is present, draining mildly cloudy/light yellow urine. No skin issues noted. Right FA #22G peripheral IV, TKO, patent/intact. Pt is on pressure releasing mattress, HOB at 30degrees, bed locked, in lowest position, three side rails up, and call light is placed within easy reach. Will continue to monitor pt and follow plan of care per MD orders and protocol.
[2019-11-13 08:00] VITALS: BP 128/72
[2019-11-13] MEDS ORDERED: Sodium Chloride for KCL Premix X 4hrs IV SCH (09:00)
--- NOTE | 2019-11-13 09:00 | NUR ---
NURSE NOTES: AM meds were administered. Pt is being administered KCL 40meq via GT and KCL 40meq via IV, total of 80meq per Dr. Kapoor's order, to replace K level of 2.8 from this morning's lab/result. IV KCL is being Y-cited with NS per pharmacist recommendation to prevent severe site/burning as pt only has small gauge peripheral IV access and no central line. VS remain stable. Oral care was done and pt suctioned. Pt was repositioned. Currently denies any pain or discomfort.
[2019-11-13] MEDS: Heparin 5000 units/ml inj SUBQ SCH ×2 (09:27→21:28)
[2019-11-13] MEDS: Theophylline 80mg/15ml GT SCH ×2 (09:28→21:27)
--- NOTE | 2019-11-13 10:32 | Pulmonology Progress Note ---
Subjective Allergies: Coded Allergies: No Known Allergies (Unverified , 05/19/19) Subjective care noted wbc better ID noted Objective Last 24 Hour Vital Signs Date Time Temp Pulse Resp B/P (MAP) Pulse Ox O2 Delivery O2 Flow Rate FiO2 11/13/19 09:28 77 126/63 11/13/19 08:26 77 11/13/19 07:00 86 16 40 11/13/19 04:03 Mechanical Ventilator 11/13/19 04:00 40 11/13/19 04:00 97.9 99 19 126/63 (84) 100 11/13/19 04:00 84 11/13/19 03:44 80 20 40 11/13/19 00:00 40 11/13/19 00:00 98.0 97 20 128/70 (89) 100 11/13/19 00:00 Mechanical Ventilator 11/12/19 23:46 73 11/12/19 23:12 102 21 40 11/12/19 20:00 80 11/12/19 20:00 Mechanical Ventilator 11/12/19 20:00 98.2 100 20 135/77 (96) 100 11/12/19 20:00 40 11/12/19 19:19 109 26 40 11/12/19 16:06 98.1 108 20 134/85 (101) 100 11/12/19 16:00 Mechanical Ventilator 11/12/19 16:00 40 11/12/19 15:24 87 11/12/19 15:17 78 16 40 11/12/19 12:00 97.9 93 22 115/79 (91) 100 11/12/19 12:00 Mechanical Ventilator 11/12/19 12:00 40 11/12/19 11:51 85 11/12/19 11:16 100 19 40 Intake and Output 11/12/19 11/13/19 19:00 07:00 Intake Total 465.000 ml 697.5 ml Output Total 1400 ml 600 ml Balance -935.000 ml 97.5 ml Intake Oral 0 ml Free Water 80 ml IV Total 385.000 ml 137.5 ml Tube Feeding 80 ml 480 ml Output Urine Total 1400 ml 600 ml # Bowel Movements 4 4 Objective GENERAL: An ill-appearing female. on vent HEENT: Overall negative. The patient is able to move her eyes. NECK: Supple. Tracheostomy is midline. LUNGS: With moderate air entry. No rhonchi. CARDIAC: S1, S2. Regular rate and rhythm without murmurs. ABDOMEN: Soft. G-tube in place. EXTREMITIES: No cyanosis or clubbing. Atrophy noted. NEUROLOGIC: Functional quadriplegic. Microbiology Date/Time Source Procedure Growth Status 11/12/19 00:35 Blood Blood Culture - Preliminary NO GROWTH AFTER 24 HOURS Resulted 11/12/19 00:25 Blood Blood Culture - Preliminary NO GROWTH AFTER 24 HOURS Resulted Laboratory Tests 11/13/19 05:20: White Blood Count 16.4H, Red Blood Count 3.82L, Hemoglobin 12.7, Hematocrit 38.2 , Mean Corpuscular Volume 100H, Mean Corpuscular Hemoglobin 33.2H, Mean Corpuscular Hemoglobin Concent 33.2, Red Cell Distribution Width 12.9, Platelet Count 278, Mean Platelet Volume 6.7, Neutrophils (%) (Auto) , Lymphocytes (%) ( Auto) , Monocytes (%) (Auto) , Eosinophils (%) (Auto) , Basophils (%) (Auto) , Neutrophils % (Manual) [Pending], Lymphocytes % (Manual) [Pending], Platelet Estimate [Pending], Platelet Morphology [Pending], Erythrocyte Sedimentation Rate [Pending], Prothrombin Time 11.2, Prothromb Time International Ratio 1.0, Activated Partial Thromboplast Time 28, Sodium Level 145, Potassium Level 2.8L, Chloride Level 107, Carbon Dioxide Level 23, Anion Gap 13, Blood Urea Nitrogen 13, Creatinine 0.7, Estimat Glomerular Filtration Rate > 60, Glucose Level 158H , Lactic Acid Level 1.40, Calcium Level 9.6, Total Bilirubin 0.4, Aspartate Amino Transf (AST/SGOT) 18, Alanine Aminotransferase (ALT/SGPT) 31, Alkaline Phosphatase 131H, C-Reactive Protein, Quantitative 11.8H, Total Protein 8.2, Albumin 3.6, Globulin 4.6, Albumin/Globulin Ratio 0.8L, Amylase Level 48, Lipase 309 Current Medications Medications (Trade) Dose Ordered Sig/Kunal Route PRN Reason Start Time Stop Time Status Last Admin Dose Admin Acetaminophen (Tylenol) 650 mg Q4H PRN GT Mild Pain (Pain Scale 1-3) 11/12/19 05:30 12/12/19 05:29 11/12/19 22:32 Acetaminophen/ Hydrocodone Bitart ([place] 10/325) 1 tab Q8H PRN GT For Pain 11/12/19 05:45 11/19/19 05:44 11/13/19 05:30 Al Hydroxide/Mg Hydroxide (Mylanta) 30 ml Q4H PRN GT stomach upset 11/12/19 05:30 12/12/19 05:29 Amlodipine Besylate (Norvasc) 10 mg DAILY GT 11/12/19 09:00 12/12/19 08:59 11/13/19 09:28 Clonidine HCl (Catapres Tab) 0.1 mg Q4H PRN GT SBP>160 11/12/19 05:45 02/10/20 05:44 Diphenhydramine HCl (Benadryl) 25 mg Q6H PRN GT Itching 11/12/19 05:45 12/12/19 05:44 Heparin Sodium (Porcine) (Heparin 5000 units/ml) 5,000 units EVERY 12 HOURS SUBQ 11/12/19 09:00 12/27/19 08:59 11/13/19 09:27 Lansoprazole (Prevacid) 30 mg DAILY GT 11/12/19 09:00 12/12/19 08:59 11/13/19 09:28 Magnesium Hydroxide (Mom) 30 ml BEDTIME GT 11/12/19 21:00 12/12/19 20:59 11/12/19 20:49 Piperacillin Sod/ Tazobactam Sod 3.375 gm/Sodium Chloride 110 ml @ 27.5 mls/hr Q8HR IVPB 11/12/19 14:00 11/19/19 13:59 11/13/19 05:23 Potassium Chloride 100 ml @ 100 mls/hr Q1HR IVPB 11/13/19 09:00 11/13/19 12:59 11/13/19 10:20 Sodium Chloride 400 ml @ 100 mls/hr Q4H IV 11/13/19 09:00 11/13/19 12:59 11/13/19 09:29 Theophylline (Theophylline) 80 mg Q12HR GT 11/12/19 09:00 02/10/20 08:59 11/13/19 09:28 Vancomycin HCl (Vanco pharmacy to dose) 1 ea DAILY PRN MISC Per rx protocol 11/12/19 05:30 12/12/19 05:29 Vancomycin HCl 750 mg/Dextrose 275 ml @ 183.333 mls/hr Q24H IVPB 11/12/19 11:00 11/17/19 10:59 11/12/19 10:53 Zolpidem Tartrate (Ambien) 5 mg BEDTIME PRN GT Insomnia 11/12/19 05:45 11/19/19 05:44 11/12/19 20:57 Assessment/Plan Assessment/Plan IMPRESSION: 1. Leukocytosis with concern for sepsis. 2. Possible cholecystitis, cholelithiasis. 3. Functional quadriplegic. 4. ALS. 5. Tracheostomy. 6. G-tube. 7. Mild protein-calorie malnutrition. 8. Anemia. PLAN vent support iv antibiotics routine care pain management monitor for change await improvement in labs await final cultures once stable, transfer to snf no wean off load impression, plan, and exam edited and reviewed in detail care discussed with Stas Granado MD Nov 13, 2019 10:32
--- NOTE | 2019-11-13 10:44 | History and Physical Report ---
DATE OF ADMISSION: 11/12/2019 CHIEF COMPLAINT: Sepsis. HISTORY OF PRESENT ILLNESS: The patient is an unfortunate 64-year-old female. She has a history of chronic respiratory failure, is vent dependent. She has a history of ALS, quadriplegia, and dysphagia. [facility] with complaints of abdominal pain and leukocytosis. The patient is awake. It is difficult to obtain a history as she is currently on the ventilator. At the prison, she had a white count of 30,000. CT scan in the ER showed evidence of possible cholecystitis. Surgery has now evaluated the patient and the plan is for the patient to go to the OR. PAST MEDICAL HISTORY: As above. PAST SURGICAL HISTORY: Includes a trach and a G-tube. CURRENT MEDICATIONS: Reconciled and reviewed. ALLERGIES: None. FAMILY HISTORY: None. SOCIAL HISTORY: There is no known history of tobacco, ethanol, or drugs. REVIEW OF SYSTEMS: Unobtainable. PHYSICAL EXAMINATION: VITAL SIGNS: Temperature 98 degrees, pulse 97, respirations 20, and blood pressure 134/85. GENERAL: The patient is a thin female, in no apparent distress. She is awake. HEENT: Her pupils are equal, round, and reactive to light. Sclerae anicteric. Oropharynx clear. NECK: Supple. Trach site is clean. HEART: Regular rate and rhythm. LUNGS: Clear. ABDOMEN: Soft, nontender, and nondistended. EXTREMITIES: Without clubbing, cyanosis, or edema. LABORATORY DATA: White count 30,000, hemoglobin 11, hematocrit 33, and platelet count of 231,000. Sodium 142, potassium 3.4, chloride 106, bicarb 25, BUN 19, creatinine 0.8. Coags are normal. CT shows cholelithiasis, gallbladder wall thickening consistent with cholecystitis. There are also noted to be opacities in the right lower lobe. ASSESSMENT: This is an unfortunate elderly female with a history of chronic respiratory failure, ALS, dysphagia, admitted with complaints of sepsis secondary to cholecystitis and possible pneumonia. PLAN: 1. Surgical evaluation for cholecystectomy. 2. Continue vent support, respiratory treatments. 3. NPO. 4. Continue IV hydration. 5. Pulmonary, Infectious Disease, and surgical consultations to be obtained. Harry Reaz M.D. DR: RON JOB#: [id number] CC:
[2019-11-13] MEDS: Vancomycin 750mg/D5W 275ml IVPB SCH ×2 (11:39)
[2019-11-13 12:00] VITALS: BP 120/58
--- NOTE | 2019-11-13 12:00 | NUR ---
NURSE NOTES: Pt remains afebrile with stable VS. Oral care was done. Pt repositioned. Pt was seen by Juaquin. No new orders were received at this time.
--- NOTE | 2019-11-13 14:02 | NUR ---
NURSE NOTES: Pt was administered [place] per PRN order for severe pain, as pt communicates via letter/board that she is having generalized body aches and displays facial grimacing. VS remain stable. Will continue to monitor.
--- NOTE | 2019-11-13 15:00 | NUR ---
NURSE NOTES: Pt reports total pain relief after receiving [place]. VS remain stable. Pt is resting comfortably.
[2019-11-13 16:00] VITALS: BP 121/71
--- NOTE | 2019-11-13 16:21 | Surgery Progress Note ---
Surgery Progress Note Subjective Additional Comments wbc improving labs noted exam stable us held for micro Objective Last 24 Hour Vital Signs Date Time Temp Pulse Resp B/P (MAP) Pulse Ox O2 Delivery O2 Flow Rate FiO2 11/13/19 16:00 98.4 73 19 121/71 (88) 100 11/13/19 16:00 40 11/13/19 16:00 Mechanical Ventilator 11/13/19 14:32 98.2 11/13/19 12:00 98.1 79 18 120/58 (78) 100 11/13/19 12:00 85 11/13/19 12:00 Mechanical Ventilator 11/13/19 11:00 82 22 40 11/13/19 09:28 77 126/63 11/13/19 09:00 40 11/13/19 08:26 77 11/13/19 08:00 98.2 78 20 128/72 (90) 100 11/13/19 08:00 40 11/13/19 08:00 Mechanical Ventilator 11/13/19 07:00 86 16 40 11/13/19 04:03 Mechanical Ventilator 11/13/19 04:00 40 11/13/19 04:00 97.9 99 19 126/63 (84) 100 11/13/19 04:00 84 11/13/19 03:44 80 20 40 11/13/19 00:00 40 11/13/19 00:00 98.0 97 20 128/70 (89) 100 11/13/19 00:00 Mechanical Ventilator 11/12/19 23:46 73 11/12/19 23:12 102 21 40 11/12/19 20:00 80 11/12/19 20:00 Mechanical Ventilator 11/12/19 20:00 98.2 100 20 135/77 (96) 100 11/12/19 20:00 40 11/12/19 19:19 109 26 40 I&O Intake and Output 11/12/19 11/13/19 19:00 07:00 Intake Total 465.000 ml 697.5 ml Output Total 1400 ml 600 ml Balance -935.000 ml 97.5 ml Intake Oral 0 ml Free Water 80 ml IV Total 385.000 ml 137.5 ml Tube Feeding 80 ml 480 ml Output Urine Total 1400 ml 600 ml # Bowel Movements 4 4 Cardiovascular: RSR Respiratory: decreased breath sounds Abdomen: soft, non-tender, present bowel sounds, decreased bowel sounds Extremities: no tenderness, no cyanosis Laboratory Tests Test 11/13/19 05:20 White Blood Count 16.4 K/UL (4.8-10.8) H Red Blood Count 3.82 M/UL (4.20-5.40) L Hemoglobin 12.7 G/DL (12.0-16.0) Hematocrit 38.2 % (37.0-47.0) Mean Corpuscular Volume 100 FL (80-99) H Mean Corpuscular Hemoglobin 33.2 PG (27.0-31.0) H Mean Corpuscular Hemoglobin Concent 33.2 G/DL (32.0-36.0) Red Cell Distribution Width 12.9 % (11.6-14.8) Platelet Count 278 K/UL (150-450) Mean Platelet Volume 6.7 FL (6.5-10.1) Neutrophils (%) (Auto) % (45.0-75.0) Lymphocytes (%) (Auto) % (20.0-45.0) Monocytes (%) (Auto) % (1.0-10.0) Eosinophils (%) (Auto) % (0.0-3.0) Basophils (%) (Auto) % (0.0-2.0) Differential Total Cells Counted 100 Neutrophils % (Manual) 82 % (45-75) H Lymphocytes % (Manual) 16 % (20-45) L Monocytes % (Manual) 2 % (1-10) Eosinophils % (Manual) 0 % (0-3) Basophils % (Manual) 0 % (0-2) Band Neutrophils 0 % (0-8) Platelet Estimate Adequate Platelet Morphology Normal Red Blood Cell Morphology Normal Erythrocyte Sedimentation Rate 75 MM/HR (0-30) H Prothrombin Time 11.2 SEC (9.30-11.50) Prothromb Time International Ratio 1.0 (0.9-1.1) Activated Partial Thromboplast Time 28 SEC (23-33) Sodium Level 145 MMOL/L (136-145) Potassium Level 2.8 MMOL/L (3.5-5.1) L Chloride Level 107 MMOL/L (98-107) Carbon Dioxide Level 23 MMOL/L (21-32) Anion Gap 13 mmol/L (5-15) Blood Urea Nitrogen 13 mg/dL (7-18) Creatinine 0.7 MG/DL (0.55-1.30) Estimat Glomerular Filtration Rate > 60 mL/min (>60) Glucose Level 158 MG/DL (74-106) H Lactic Acid Level 1.40 mmol/L (0.4-2.0) Calcium Level 9.6 MG/DL (8.5-10.1) Total Bilirubin 0.4 MG/DL (0.2-1.0) Aspartate Amino Transf (AST/SGOT) 18 U/L (15-37) Alanine Aminotransferase (ALT/SGPT) 31 U/L (12-78) Alkaline Phosphatase 131 U/L (46-116) H C-Reactive Protein, Quantitative 11.8 mg/dL (0.00-0.90) H Total Protein 8.2 G/DL (6.4-8.2) Albumin 3.6 G/DL (3.4-5.0) Globulin 4.6 g/dL Albumin/Globulin Ratio 0.8 (1.0-2.7) L Amylase Level 48 U/L (25-115) Lipase 309 U/L (73-393) Plan Problems: (1) Pneumonia (2) Hypokalemia (3) SOB (shortness of breath) (4) Sepsis Assessment & Plan: 64-year-old female significant leukocytosis 30,000, anemia, CT as below potential cholecystitis. Surgery called to evaluate. Patient seen patient evaluated chart reviewed patient denies any discomfort. Unable to speak but she can follow directions and mouth or voice herself with facial reactions. When asked about pain denies states she is hungry when palpated in the right upper quadrant denies any pain no abdominal tenderness on examination. Labs noted imaging reviewed. Ultrasound abdomen ordered to evaluate gallbladder more specific than CT scan continue antibiotics per infectious disease IV fluids okay for diet from surgical standpoint Based on clinical examination unlikely cholecystitis no Hardwick's no tenderness no abdominal complaints Potential pneumonia Preventative measures taken air mattress given patient's baseline condition malnutrition and her bedbound condition. OPTi foam presentation dressings applied and bony prominences Turn every 2 hours Nutritional optimization wbc improving labs noted US pending ABDOMEN: Liver: Unremarkable. Gallbladder and bile ducts: Several gallstones are noted. There is suggestion of gallbladder wall thickening. No ductal dilation. Pancreas: Unremarkable. No ductal dilation. Spleen: Unremarkable. No splenomegaly. Adrenals: Unremarkable. No mass. Kidneys and ureters: The right renal collecting system is prominent but without lino hydronephrosis. There is a 7 mm nonobstructing stone in the lower pole of the left kidney. Both ureters are normal as seen. Stomach and bowel: A gastrostomy tube is in appropriate position. There is no bowel obstruction. A moderate amount of stool is noted throughout the colon, particularly within the distal sigmoid colon and rectum, possibly representing mild fecal impaction. There are no inflammatory changes in the bowel mesentery.. PELVIS: Appendix: No findings to suggest acute appendicitis. Bladder: There is an indwelling Feldman catheter was is presumed to be clamped as the bladder is moderately distended with fluid, with a small air-fluid level. No stones. Reproductive: There is a 9 mm calcification in the fundus of the uterus, likely small calcified uterine fibroids. The adnexa are unremarkable. ABDOMEN and PELVIS: Intraperitoneal space: Unremarkable. No free air. No significant fluid collection. Bones/joints: No acute fracture. No dislocation. Soft tissues: Unremarkable. Vasculature: Unremarkable. Lymph nodes: There are small calcified lymph nodes in the subcarinal and left hilar regions. IMPRESSION: 1. Cholelithiasis with suggestion of gallbladder wall thickening. Correlation with clinical findings is recommended to assess for the possibility of acute cholecystitis. Ultrasound may be helpful for further assessment. 2. Nonobstructing left renal stone. 3. Possible fecal impaction. 4. Significant atelectasis in the left lower lobe. (5) Chest pain (6) ALS (amyotrophic lateral sclerosis) (7) Elevated troponin Aly Awad Nov 13, 2019 16:21
--- NOTE | 2019-11-13 17:30 | NUR ---
NURSE NOTES: Pt was cleaned, gown/bed linens were changed, pt was repositioned with bilateral extremities elevated on pillows. Oral care was done. Pt is tolerating GT feeding, current rate at goal 55ml/hour, no noted residual. Denies any pain or discomfort at this time.
--- NOTE | 2019-11-13 18:19 | NUR ---
NURSE NOTES: Feldman drainage bag was emptied.
--- NOTE | 2019-11-13 19:19 | NUR ---
HAND-OFF: Report given to LILLIANA GERMAIN. Endorsed plan of care. VS remain stable. Addendum: 11/13/19 at 1921 by SANDRA HDZ RN Hand off was given to Anju GERMAIN.
--- NOTE | 2019-11-13 19:21 | NUR ---
NURSE NOTES: received pt from Ata GERMAIN, pt is awake and resting on the bed. Aox3 at this time. language board at the bedside. pt's trach in place, no SOB noted, O2sat is at 100%. pt's Gtube site intact, clean, and patent. right FA 22G intact, clean, and patent. Feldman cath is draining well with gravity. call light within reach. bed at the lowest position, alarmed, and locked. will continue to monitor pt with plan of care.
[2019-11-13 20:00] VITALS: BP 122/78
--- NOTE | 2019-11-13 21:18 | NUR ---
NURSE NOTES: per Dane López, it is okay to administer Theophylline with pt's potassium 2.8 because it is covered by 80meq today. noted and carry on.
[2019-11-13] MEDS: Milk of Magnesia 30ml Ud GT SCH (21:27)
[2019-11-13] MEDS: Zolpidem 5mg tab GT PRN (22:22)
[2019-11-14] VITALS: BP 120/70
--- NOTE | 2019-11-14 02:00 | NUR ---
NURSE NOTES: cleaned pt, oral care given, new gown given, no SOB noted at this time. O2sat is at 100%. call light within reach. will continue to monitor pt with plan of care.
[2019-11-14 04:00] VITALS: BP 125/72
[2019-11-14] MEDS: Piperacillin/Tazobactam 3.375 GM in NS 110 ML IVPB SCH ×3 (05:36→21:19)
[2019-11-14 07:20] LABS: EOSINOPHILS % (AUTO) 1.8 % (0.0-3.0); HEMATOCRIT 34.5 % (37.0-47.0); HEMOGLOBIN 11.7 G/DL (12.0-16.0); LYMPHOCYTES % (AUTO) 27.1 % (20.0-45.0); MEAN CORPUSCULAR VOLUME 100 FL (80-99); MONOCYTES % (AUTO) 6.2 % (1.0-10.0); NEUTROPHILS % (AUTO) 62.9 % (45.0-75.0); PLATELET COUNT 278 K/UL (150-450); RED BLOOD COUNT 3.43 M/UL (4.20-5.40); RED CELL DISTRIBUTION WIDTH 12.9 % (11.6-14.8); WHITE BLOOD COUNT 8.6 K/UL (4.8-10.8)
--- NOTE | 2019-11-14 07:20 | NUR ---
HAND-OFF: Report given to Jessica GERMAIN. pt is stable condition, endorsed plan of care
[2019-11-14 07:41] LABS: ANION GAP 13 mmol/L (5-15); BLOOD UREA NITROGEN 14 mg/dL (7-18); CALCIUM 9.1 MG/DL (8.5-10.1); CARBON DIOXIDE 23 MMOL/L (21-32); CHLORIDE 109 MMOL/L (98-107); CREATININE 0.6 MG/DL (0.55-1.30); POTASSIUM 3.3 MMOL/L (3.5-5.1); SODIUM 145 MMOL/L (136-145)
--- NOTE | 2019-11-14 07:58 | NUR ---
NURSE NOTES: received pt from Magnolia GERMAIN. Pt is A/O x 3 and resting on the bed. No s/s of respiratory distress noted. Communication board at the bedside. pt's trach in place, setting per prescription. pt's Gtube site intact, clean, and patent. right FA 22G intact, clean, and patent noted. call light within reach. bed at the lowest position and locked. will continue to monitor pt with plan of care.
[2019-11-14 08:00] VITALS: BP 133/81
[2019-11-14] MEDS: Theophylline 80mg/15ml GT SCH ×2 (08:22→21:18)
[2019-11-14] MEDS: Heparin 5000 units/ml inj SUBQ SCH ×2 (08:24→21:19)
--- NOTE | 2019-11-14 08:24 | General Progress Note ---
Assessment/Plan Problem List: (1) Cholecystitis ICD Codes: K81.9 - Cholecystitis, unspecified SNOMED: 55823144 (2) Pneumonia ICD Codes: J18.9 - Pneumonia, unspecified organism SNOMED: 356374528 (3) ALS (amyotrophic lateral sclerosis) ICD Codes: G12.21 - Amyotrophic lateral sclerosis SNOMED: 83706773 (4) Elevated troponin ICD Codes: R79.89 - Other specified abnormal findings of blood chemistry SNOMED: 410158371, 708537259, 283501600 (5) Sepsis ICD Codes: A41.9 - Sepsis, unspecified organism SNOMED: 03605768 Status: stable, progressing Assessment/Plan: replace k gt feeds iv abx per id follow up cultures abd us per surgery vent support resp rx skin care Subjective ROS Limited/Unobtainable: Yes Constitutional: Reports: malaise, weakness HEENT: Reports: no symptoms Cardiovascular: Reports: no symptoms Respiratory: Reports: shortness of breath, sputum Gastrointestinal/Abdominal: Reports: difficulty swallowing Genitourinary: Reports: no symptoms Neurologic/Psychiatric: Reports: pre-existing deficit Endocrine: Reports: no symptoms Hematologic/Lymphatic: Reports: no symptoms Allergies: Coded Allergies: No Known Allergies (Unverified , 05/19/19) All Systems: reviewed and negative except above Subjective no evens. stable on the vent. no fevers. tolerating gt feeds. Low K noted. WBC improving. on abx. Surgery noted- doubt cholecystitis Objective Last 24 Hour Vital Signs Date Time Temp Pulse Resp B/P (MAP) Pulse Ox O2 Delivery O2 Flow Rate FiO2 11/14/19 08:00 97.7 81 17 133/81 (98) 97 11/14/19 07:23 86 19 40 11/14/19 04:00 59 11/14/19 04:00 Mechanical Ventilator 11/14/19 04:00 97.9 79 18 125/72 (89) 100 11/14/19 04:00 40 11/14/19 02:59 77 16 40 11/14/19 00:00 97.5 97 19 120/70 (87) 100 11/14/19 00:00 40 11/14/19 00:00 Mechanical Ventilator 11/13/19 23:11 74 16 40 11/13/19 20:00 97.6 100 19 122/78 (93) 100 11/13/19 20:00 40 11/13/19 20:00 58 11/13/19 20:00 Mechanical Ventilator 11/13/19 19:10 91 20 40 11/13/19 16:00 98.4 73 19 121/71 (88) 100 11/13/19 16:00 40 11/13/19 16:00 70 11/13/19 16:00 Mechanical Ventilator 11/13/19 15:05 83 16 40 11/13/19 14:32 98.2 11/13/19 12:00 98.1 79 18 120/58 (78) 100 11/13/19 12:00 85 11/13/19 12:00 Mechanical Ventilator 11/13/19 11:00 82 22 40 11/13/19 09:28 77 126/63 11/13/19 09:00 40 11/13/19 08:26 77 Intake and Output 11/13/19 11/14/19 19:00 07:00 Intake Total 829.163 ml 881.0 ml Output Total 500 ml 500 ml Balance 329.163 ml 381.0 ml Free Water 60 ml 100 ml IV Total 659.163 ml 121.0 ml Tube Feeding 110 ml 660 ml Output Urine Total 500 ml 500 ml # Bowel Movements 3 1 Laboratory Tests 11/14/19 04:52: White Blood Count 8.6, Red Blood Count 3.43L, Hemoglobin 11.7L, Hematocrit 34.5L , Mean Corpuscular Volume 100H, Mean Corpuscular Hemoglobin 34.1H, Mean Corpuscular Hemoglobin Concent 33.9, Red Cell Distribution Width 12.9, Platelet Count 278, Mean Platelet Volume 7.4, Neutrophils (%) (Auto) 62.9, Lymphocytes (% ) (Auto) 27.1, Monocytes (%) (Auto) 6.2, Eosinophils (%) (Auto) 1.8, Basophils ( %) (Auto) 2.0, Sodium Level 145, Potassium Level 3.3L, Chloride Level 109H, Carbon Dioxide Level 23, Anion Gap 13, Blood Urea Nitrogen 14, Creatinine 0.6, Estimat Glomerular Filtration Rate > 60, Glucose Level 141H, Calcium Level 9.1, C-Reactive Protein, Quantitative 4.3H Height (Feet): 5 Height (Inches): 1.00 Weight (Pounds): 106 General Appearance: WD/WN, alert, confused EENT: PERRL/EOMI, normal ENT inspection Neck: non-tender, normal alignment Cardiovascular: normal rate, regular rhythm Respiratory/Chest: chest wall non-tender, lungs clear, normal breath sounds, no respiratory distress Abdomen: normal bowel sounds, non tender, soft, no organomegaly Edema: no edema noted Arm (L), no edema noted Arm (R) Neurologic: alert, responsive, disoriented Skin: normal pigmentation Lymphatic: normal anterior cervical (L), normal anterior cervical (R) Harry Reza MD Nov 14, 2019 08:23
[2019-11-14] MEDS: HYDROcodone/Acetamin 10/325 tab GT PRN ×2 (08:36→16:53)
--- NOTE | 2019-11-14 08:55 | Pulmonology Progress Note ---
Subjective ROS Limited/Unobtainable: Yes Allergies: Coded Allergies: No Known Allergies (Unverified , 05/19/19) All Systems: reviewed and negative except above Subjective care noted wbc now normal ID noted cx noted Objective Last 24 Hour Vital Signs Date Time Temp Pulse Resp B/P (MAP) Pulse Ox O2 Delivery O2 Flow Rate FiO2 11/14/19 08:23 81 133/81 11/14/19 08:00 97.7 81 17 133/81 (98) 97 11/14/19 07:23 86 19 40 11/14/19 04:00 59 11/14/19 04:00 Mechanical Ventilator 11/14/19 04:00 97.9 79 18 125/72 (89) 100 11/14/19 04:00 40 11/14/19 02:59 77 16 40 11/14/19 00:00 97.5 97 19 120/70 (87) 100 11/14/19 00:00 40 11/14/19 00:00 Mechanical Ventilator 11/13/19 23:11 74 16 40 11/13/19 20:00 97.6 100 19 122/78 (93) 100 11/13/19 20:00 40 11/13/19 20:00 58 11/13/19 20:00 Mechanical Ventilator 11/13/19 19:10 91 20 40 11/13/19 16:00 98.4 73 19 121/71 (88) 100 11/13/19 16:00 40 11/13/19 16:00 70 11/13/19 16:00 Mechanical Ventilator 11/13/19 15:05 83 16 40 11/13/19 14:32 98.2 11/13/19 12:00 98.1 79 18 120/58 (78) 100 11/13/19 12:00 85 11/13/19 12:00 Mechanical Ventilator 11/13/19 11:00 82 22 40 11/13/19 09:28 77 126/63 11/13/19 09:00 40 Intake and Output 11/13/19 11/14/19 19:00 07:00 Intake Total 829.163 ml 881.0 ml Output Total 500 ml 500 ml Balance 329.163 ml 381.0 ml Free Water 60 ml 100 ml IV Total 659.163 ml 121.0 ml Tube Feeding 110 ml 660 ml Output Urine Total 500 ml 500 ml # Bowel Movements 3 1 Objective GENERAL: An ill-appearing female. on vent HEENT: Overall negative. The patient is able to move her eyes. NECK: Supple. Tracheostomy is midline. LUNGS: With moderate air entry. No rhonchi. CARDIAC: S1, S2. Regular rate and rhythm without murmurs. ABDOMEN: Soft. G-tube in place. EXTREMITIES: No cyanosis or clubbing. Atrophy noted. NEUROLOGIC: Functional quadriplegic. Microbiology Date/Time Source Procedure Growth Status 11/12/19 00:35 Blood Blood Culture - Preliminary NO GROWTH AFTER 48 HOURS Resulted 11/12/19 00:25 Blood Blood Culture - Preliminary NO GROWTH AFTER 48 HOURS Resulted 11/12/19 00:30 Nasal Nares MRSA Culture - Final NO METHICILLIN RESISTANT STAPH AUREUS... Complete 11/12/19 00:20 Nasopharynx Coronavirus COVID-19 PCR ([facility]) - Final Complete Laboratory Tests 11/14/19 04:52: White Blood Count 8.6, Red Blood Count 3.43L, Hemoglobin 11.7L, Hematocrit 34.5L , Mean Corpuscular Volume 100H, Mean Corpuscular Hemoglobin 34.1H, Mean Corpuscular Hemoglobin Concent 33.9, Red Cell Distribution Width 12.9, Platelet Count 278, Mean Platelet Volume 7.4, Neutrophils (%) (Auto) 62.9, Lymphocytes (% ) (Auto) 27.1, Monocytes (%) (Auto) 6.2, Eosinophils (%) (Auto) 1.8, Basophils ( %) (Auto) 2.0, Sodium Level 145, Potassium Level 3.3L, Chloride Level 109H, Carbon Dioxide Level 23, Anion Gap 13, Blood Urea Nitrogen 14, Creatinine 0.6, Estimat Glomerular Filtration Rate > 60, Glucose Level 141H, Calcium Level 9.1, C-Reactive Protein, Quantitative 4.3H Current Medications Medications (Trade) Dose Ordered Sig/Kunal Route PRN Reason Start Time Stop Time Status Last Admin Dose Admin Acetaminophen (Tylenol) 650 mg Q4H PRN GT Mild Pain (Pain Scale 1-3) 11/12/19 05:30 12/12/19 05:29 11/12/19 22:32 Acetaminophen/ Hydrocodone Bitart ([place] 10/325) 1 tab Q8H PRN GT For Pain 11/12/19 05:45 11/19/19 05:44 11/14/19 08:36 Al Hydroxide/Mg Hydroxide (Mylanta) 30 ml Q4H PRN GT stomach upset 11/12/19 05:30 12/12/19 05:29 Amlodipine Besylate (Norvasc) 10 mg DAILY GT 11/12/19 09:00 12/12/19 08:59 11/14/19 08:23 Clonidine HCl (Catapres Tab) 0.1 mg Q4H PRN GT SBP>160 11/12/19 05:45 02/10/20 05:44 Diphenhydramine HCl (Benadryl) 25 mg Q6H PRN GT Itching 11/12/19 05:45 12/12/19 05:44 Heparin Sodium (Porcine) (Heparin 5000 units/ml) 5,000 units EVERY 12 HOURS SUBQ 11/12/19 09:00 12/27/19 08:59 11/14/19 08:24 Lansoprazole (Prevacid) 30 mg DAILY GT 11/12/19 09:00 12/12/19 08:59 11/14/19 08:22 Magnesium Hydroxide (Mom) 30 ml BEDTIME GT 11/12/19 21:00 12/12/19 20:59 11/13/19 21:27 Piperacillin Sod/ Tazobactam Sod 3.375 gm/Sodium Chloride 110 ml @ 27.5 mls/hr Q8HR IVPB 11/12/19 14:00 11/19/19 13:59 11/14/19 05:36 Theophylline (Theophylline) 80 mg Q12HR GT 11/12/19 09:00 02/10/20 08:59 11/14/19 08:22 Vancomycin HCl (Vanco pharmacy to dose) 1 ea DAILY PRN MISC Per rx protocol 11/12/19 05:30 12/12/19 05:29 Vancomycin HCl 750 mg/Dextrose 275 ml @ 183.333 mls/hr Q24H IVPB 11/12/19 11:00 11/17/19 10:59 11/13/19 11:39 Zolpidem Tartrate (Ambien) 5 mg BEDTIME PRN GT Insomnia 11/12/19 05:45 11/19/19 05:44 11/13/19 22:22 Assessment/Plan Assessment/Plan IMPRESSION: 1. Leukocytosis with concern for sepsis. 2. Possible cholecystitis, cholelithiasis. 3. Functional quadriplegic. 4. ALS. 5. Tracheostomy. 6. G-tube. 7. Mild protein-calorie malnutrition. 8. Anemia. PLAN vent support iv antibiotics routine care pain management monitor for change await final cultures hope to dc to snf in am if remains stable no wean off load impression, plan, and exam edited and reviewed in detail care discussed with Stas Granado MD Nov 14, 2019 08:55
[2019-11-14] MEDS: Vancomycin 750mg/D5W 275ml IVPB SCH ×2 (11:18)
[2019-11-14 12:00] VITALS: BP 133/86
--- NOTE | 2019-11-14 12:39 | Infectious Diseases Prog Note ---
Assessment/Plan Assessment/Plan A; 1. Possible cholecystitis. 2.Atelectasis/ pneumonia.COVID19 negative 3. Respiratory failure.on ventilator 4. Leukocytosis resolved 5. ALS PLAN: 1. Continue IV vancomycin and Zosyn. 2. We will f/u sputum for Gram stain and culture. 5. We will f/u HIDA scan. Subjective ROS Limited/Unobtainable: Yes Constitutional: Denies: fever Allergies: Coded Allergies: No Known Allergies (Unverified , 05/19/19) Objective Vital Signs Last 24 Hour Vital Signs Date Time Temp Pulse Resp B/P (MAP) Pulse Ox O2 Delivery O2 Flow Rate FiO2 11/14/19 12:00 40 11/14/19 12:00 Mechanical Ventilator 11/14/19 12:00 98.1 86 21 133/86 (102) 100 11/14/19 11:05 91 17 40 11/14/19 09:06 97.7 11/14/19 08:23 81 133/81 11/14/19 08:00 80 11/14/19 08:00 Mechanical Ventilator 11/14/19 08:00 97.7 81 17 133/81 (98) 97 11/14/19 08:00 40 11/14/19 07:23 86 19 40 11/14/19 04:00 59 11/14/19 04:00 Mechanical Ventilator 11/14/19 04:00 97.9 79 18 125/72 (89) 100 11/14/19 04:00 40 11/14/19 02:59 77 16 40 11/14/19 00:00 97.5 97 19 120/70 (87) 100 11/14/19 00:00 40 11/14/19 00:00 Mechanical Ventilator 11/13/19 23:11 74 16 40 11/13/19 20:00 97.6 100 19 122/78 (93) 100 11/13/19 20:00 40 11/13/19 20:00 58 11/13/19 20:00 Mechanical Ventilator 11/13/19 19:10 91 20 40 11/13/19 16:00 98.4 73 19 121/71 (88) 100 11/13/19 16:00 40 11/13/19 16:00 70 11/13/19 16:00 Mechanical Ventilator 11/13/19 15:05 83 16 40 Height (Feet): 5 Height (Inches): 1.00 Weight (Pounds): 106 HEENT: status post trach Respiratory/Chest: other - few rhonchi, on ventilator Abdomen: soft, non tender, other - GT feeding Extremities: no edema Neurologic/Psychiatric: alert, responsive Musculoskeletal: atrophy Microbiology Date/Time Source Procedure Growth Status 11/12/19 00:35 Blood Blood Culture - Preliminary NO GROWTH AFTER 48 HOURS Resulted 11/12/19 00:25 Blood Blood Culture - Preliminary NO GROWTH AFTER 48 HOURS Resulted 11/12/19 00:30 Nasal Nares MRSA Culture - Final NO METHICILLIN RESISTANT STAPH AUREUS... Complete 11/12/19 00:20 Nasopharynx Coronavirus COVID-19 PCR ([facility]) - Final Complete 11/12/19 00:30 Rectum VRE Culture - Final Enterococcus Faecium - Vre Complete Laboratory Tests Test 11/14/19 04:52 White Blood Count 8.6 K/UL (4.8-10.8) Red Blood Count 3.43 M/UL (4.20-5.40) L Hemoglobin 11.7 G/DL (12.0-16.0) L Hematocrit 34.5 % (37.0-47.0) L Mean Corpuscular Volume 100 FL (80-99) H Mean Corpuscular Hemoglobin 34.1 PG (27.0-31.0) H Mean Corpuscular Hemoglobin Concent 33.9 G/DL (32.0-36.0) Red Cell Distribution Width 12.9 % (11.6-14.8) Platelet Count 278 K/UL (150-450) Mean Platelet Volume 7.4 FL (6.5-10.1) Neutrophils (%) (Auto) 62.9 % (45.0-75.0) Lymphocytes (%) (Auto) 27.1 % (20.0-45.0) Monocytes (%) (Auto) 6.2 % (1.0-10.0) Eosinophils (%) (Auto) 1.8 % (0.0-3.0) Basophils (%) (Auto) 2.0 % (0.0-2.0) Sodium Level 145 MMOL/L (136-145) Potassium Level 3.3 MMOL/L (3.5-5.1) L Chloride Level 109 MMOL/L (98-107) H Carbon Dioxide Level 23 MMOL/L (21-32) Anion Gap 13 mmol/L (5-15) Blood Urea Nitrogen 14 mg/dL (7-18) Creatinine 0.6 MG/DL (0.55-1.30) Estimat Glomerular Filtration Rate > 60 mL/min (>60) Glucose Level 141 MG/DL (74-106) H Calcium Level 9.1 MG/DL (8.5-10.1) C-Reactive Protein, Quantitative 4.3 mg/dL (0.00-0.90) H Current Medications Medications (Trade) Dose Ordered Sig/Kunal Route PRN Reason Start Time Stop Time Status Last Admin Dose Admin Acetaminophen (Tylenol) 650 mg Q4H PRN GT Mild Pain (Pain Scale 1-3) 11/12/19 05:30 12/12/19 05:29 11/12/19 22:32 Acetaminophen/ Hydrocodone Bitart ([place] 10/325) 1 tab Q8H PRN GT For Pain 11/12/19 05:45 11/19/19 05:44 11/14/19 08:36 Al Hydroxide/Mg Hydroxide (Mylanta) 30 ml Q4H PRN GT stomach upset 11/12/19 05:30 12/12/19 05:29 Amlodipine Besylate (Norvasc) 10 mg DAILY GT 11/12/19 09:00 12/12/19 08:59 11/14/19 08:23 Clonidine HCl (Catapres Tab) 0.1 mg Q4H PRN GT SBP>160 11/12/19 05:45 02/10/20 05:44 Diphenhydramine HCl (Benadryl) 25 mg Q6H PRN GT Itching 11/12/19 05:45 12/12/19 05:44 Heparin Sodium (Porcine) (Heparin 5000 units/ml) 5,000 units EVERY 12 HOURS SUBQ 11/12/19 09:00 12/27/19 08:59 11/14/19 08:24 Lansoprazole (Prevacid) 30 mg DAILY GT 11/12/19 09:00 12/12/19 08:59 11/14/19 08:22 Magnesium Hydroxide (Mom) 30 ml BEDTIME GT 11/12/19 21:00 12/12/19 20:59 11/13/19 21:27 Piperacillin Sod/ Tazobactam Sod 3.375 gm/Sodium Chloride 110 ml @ 27.5 mls/hr Q8HR IVPB 11/12/19 14:00 11/19/19 13:59 11/14/19 05:36 Theophylline (Theophylline) 80 mg Q12HR GT 11/12/19 09:00 02/10/20 08:59 11/14/19 08:22 Vancomycin HCl (Vanco pharmacy to dose) 1 ea DAILY PRN MISC Per rx protocol 11/12/19 05:30 12/12/19 05:29 Vancomycin HCl 750 mg/Dextrose 275 ml @ 183.333 mls/hr Q24H IVPB 11/12/19 11:00 11/17/19 10:59 11/14/19 11:18 Zolpidem Tartrate (Ambien) 5 mg BEDTIME PRN GT Insomnia 11/12/19 05:45 11/19/19 05:44 11/13/19 22:22 Bebeto Hartley MD Nov 14, 2019 12:39
--- NOTE | 2019-11-14 14:52 | Surgery Progress Note ---
Surgery Progress Note Subjective Additional Comments wbc resolved labs noted lfts okay exam stable no n/v/f/c Objective Last 24 Hour Vital Signs Date Time Temp Pulse Resp B/P (MAP) Pulse Ox O2 Delivery O2 Flow Rate FiO2 11/14/19 12:00 40 11/14/19 12:00 Mechanical Ventilator 11/14/19 12:00 84 11/14/19 12:00 98.1 86 21 133/86 (102) 100 11/14/19 11:05 91 17 40 11/14/19 09:06 97.7 11/14/19 08:23 81 133/81 11/14/19 08:00 80 11/14/19 08:00 Mechanical Ventilator 11/14/19 08:00 97.7 81 17 133/81 (98) 97 11/14/19 08:00 40 11/14/19 07:23 86 19 40 11/14/19 04:00 59 11/14/19 04:00 Mechanical Ventilator 11/14/19 04:00 97.9 79 18 125/72 (89) 100 11/14/19 04:00 40 11/14/19 02:59 77 16 40 11/14/19 00:00 97.5 97 19 120/70 (87) 100 11/14/19 00:00 40 11/14/19 00:00 Mechanical Ventilator 11/13/19 23:11 74 16 40 11/13/19 20:00 97.6 100 19 122/78 (93) 100 11/13/19 20:00 40 11/13/19 20:00 58 11/13/19 20:00 Mechanical Ventilator 11/13/19 19:10 91 20 40 11/13/19 16:00 98.4 73 19 121/71 (88) 100 11/13/19 16:00 40 11/13/19 16:00 70 11/13/19 16:00 Mechanical Ventilator 11/13/19 15:05 83 16 40 I&O Intake and Output 11/13/19 11/14/19 19:00 07:00 Intake Total 829.163 ml 881.0 ml Output Total 500 ml 500 ml Balance 329.163 ml 381.0 ml Free Water 60 ml 100 ml IV Total 659.163 ml 121.0 ml Tube Feeding 110 ml 660 ml Output Urine Total 500 ml 500 ml # Bowel Movements 3 1 Dressing: dry Wound: clean Cardiovascular: RSR Respiratory: clear Abdomen: soft, non-tender, present bowel sounds Extremities: no tenderness, no cyanosis Laboratory Tests Test 11/14/19 04:52 White Blood Count 8.6 K/UL (4.8-10.8) Red Blood Count 3.43 M/UL (4.20-5.40) L Hemoglobin 11.7 G/DL (12.0-16.0) L Hematocrit 34.5 % (37.0-47.0) L Mean Corpuscular Volume 100 FL (80-99) H Mean Corpuscular Hemoglobin 34.1 PG (27.0-31.0) H Mean Corpuscular Hemoglobin Concent 33.9 G/DL (32.0-36.0) Red Cell Distribution Width 12.9 % (11.6-14.8) Platelet Count 278 K/UL (150-450) Mean Platelet Volume 7.4 FL (6.5-10.1) Neutrophils (%) (Auto) 62.9 % (45.0-75.0) Lymphocytes (%) (Auto) 27.1 % (20.0-45.0) Monocytes (%) (Auto) 6.2 % (1.0-10.0) Eosinophils (%) (Auto) 1.8 % (0.0-3.0) Basophils (%) (Auto) 2.0 % (0.0-2.0) Sodium Level 145 MMOL/L (136-145) Potassium Level 3.3 MMOL/L (3.5-5.1) L Chloride Level 109 MMOL/L (98-107) H Carbon Dioxide Level 23 MMOL/L (21-32) Anion Gap 13 mmol/L (5-15) Blood Urea Nitrogen 14 mg/dL (7-18) Creatinine 0.6 MG/DL (0.55-1.30) Estimat Glomerular Filtration Rate > 60 mL/min (>60) Glucose Level 141 MG/DL (74-106) H Calcium Level 9.1 MG/DL (8.5-10.1) C-Reactive Protein, Quantitative 4.3 mg/dL (0.00-0.90) H Plan Problems: (1) Pneumonia (2) Hypokalemia (3) SOB (shortness of breath) (4) Sepsis Assessment & Plan: 64-year-old female significant leukocytosis 30,000, anemia, CT as below potential cholecystitis. Surgery called to evaluate. Patient seen patient evaluated chart reviewed patient denies any discomfort. Unable to speak but she can follow directions and mouth or voice herself with facial reactions. When asked about pain denies states she is hungry when palpated in the right upper quadrant denies any pain no abdominal tenderness on examination. Labs noted imaging reviewed. Ultrasound abdomen ordered to evaluate gallbladder more specific than CT scan continue antibiotics per infectious disease IV fluids okay for diet from surgical standpoint Based on clinical examination unlikely cholecystitis no Hardwick's no tenderness no abdominal complaints Potential pneumonia Preventative measures taken air mattress given patient's baseline condition malnutrition and her bedbound condition. OPTi foam presentation dressings applied and bony prominences Turn every 2 hours Nutritional optimization wbc improving labs noted US pending leukocytosis resolved improving ABDOMEN: Liver: Unremarkable. Gallbladder and bile ducts: Several gallstones are noted. There is suggestion of gallbladder wall thickening. No ductal dilation. Pancreas: Unremarkable. No ductal dilation. Spleen: Unremarkable. No splenomegaly. Adrenals: Unremarkable. No mass. Kidneys and ureters: The right renal collecting system is prominent but without lino hydronephrosis. There is a 7 mm nonobstructing stone in the lower pole of the left kidney. Both ureters are normal as seen. Stomach and bowel: A gastrostomy tube is in appropriate position. There is no bowel obstruction. A moderate amount of stool is noted throughout the colon, particularly within the distal sigmoid colon and rectum, possibly representing mild fecal impaction. There are no inflammatory changes in the bowel mesentery.. PELVIS: Appendix: No findings to suggest acute appendicitis. Bladder: There is an indwelling Feldman catheter was is presumed to be clamped as the bladder is moderately distended with fluid, with a small air-fluid level. No stones. Reproductive: There is a 9 mm calcification in the fundus of the uterus, likely small calcified uterine fibroids. The adnexa are unremarkable. ABDOMEN and PELVIS: Intraperitoneal space: Unremarkable. No free air. No significant fluid collection. Bones/joints: No acute fracture. No dislocation. Soft tissues: Unremarkable. Vasculature: Unremarkable. Lymph nodes: There are small calcified lymph nodes in the subcarinal and left hilar regions. IMPRESSION: 1. Cholelithiasis with suggestion of gallbladder wall thickening. Correlation with clinical findings is recommended to assess for the possibility of acute cholecystitis. Ultrasound may be helpful for further assessment. 2. Nonobstructing left renal stone. 3. Possible fecal impaction. 4. Significant atelectasis in the left lower lobe. (5) Chest pain (6) ALS (amyotrophic lateral sclerosis) (7) Elevated troponin Aly Awad Nov 14, 2019 14:52
--- NOTE | 2019-11-14 15:53 | NUR ---
NURSE NOTES: Left a message to Juaquin Thurston regarding pt's K+ level; 3.3 L. Awaiting call back and new order.
[2019-11-14 16:00] VITALS: BP 139/82
--- NOTE | 2019-11-14 19:10 | NUR ---
HAND-OFF: Report given to MARCELLUS Merida. Patient is stable. NAD.
--- NOTE | 2019-11-14 19:11 | NUR ---
NURSE NOTES: received pt from Jessica RN, Kacie RN.,pt is awake and resting on the bed. Aox3 at this time. language board at the bedside. pt's trach in place, no SOB noted, O2sat is at 100%. pt states no pain at this time. pt's Gtube site intact, clean, and patent. right FA 22G intact, clean, and patent. Feldman cath is draining well with gravity. call light within reach. bed at the lowest position, alarmed, and locked. will continue to monitor pt with plan of care.
[2019-11-14 20:00] VITALS: BP 134/80
[2019-11-14] MEDS: Zolpidem 5mg tab GT PRN (21:18)
[2019-11-14] MEDS: Milk of Magnesia 30ml Ud GT SCH (21:19)
[2019-11-15] VITALS: BP 117/64
[2019-11-15] MEDS: HYDROcodone/Acetamin 10/325 tab GT PRN ×2 (03:34→17:53)
[2019-11-15 04:00] VITALS: BP 124/77
--- NOTE | 2019-11-15 04:00 | NUR ---
NURSE NOTES: oral care given, new gown provided, cleaned pt. large BM noted, no active bleeding noted. repositioned pt Q 2hrs. call light within reach. no SOB noted. will monitor closely.
[2019-11-15] MEDS: Piperacillin/Tazobactam 3.375 GM in NS 110 ML IVPB SCH ×3 (05:03→21:36)
[2019-11-15 06:13] LABS: BASOPHILS % (AUTO) 2.1 % (0.0-2.0); EOSINOPHILS % (AUTO) 1.4 % (0.0-3.0); HEMATOCRIT 34.8 % (37.0-47.0); LYMPHOCYTES % (AUTO) 16.2 % (20.0-45.0); MEAN CORPUSCULAR VOLUME 99 FL (80-99); MONOCYTES % (AUTO) 4.5 % (1.0-10.0); NEUTROPHILS % (AUTO) 75.8 % (45.0-75.0); PLATELET COUNT 293 K/UL (150-450); RED BLOOD COUNT 3.51 M/UL (4.20-5.40); RED CELL DISTRIBUTION WIDTH 12.8 % (11.6-14.8); WHITE BLOOD COUNT 10.3 K/UL (4.8-10.8)
[2019-11-15 06:37] LABS: ANION GAP 11 mmol/L (5-15); BLOOD UREA NITROGEN 17 mg/dL (7-18); CARBON DIOXIDE 24 MMOL/L (21-32); CHLORIDE 108 MMOL/L (98-107); CREATININE 0.6 MG/DL (0.55-1.30); POTASSIUM 3.4 MMOL/L (3.5-5.1); SODIUM 143 MMOL/L (136-145)
--- NOTE | 2019-11-15 07:00 | NUR ---
HAND-OFF: Report given to Jessica GERMAIN., pt remains stable condition, endorsed plan of care.
--- NOTE | 2019-11-15 07:15 | NUR ---
NURSE NOTES: received patient report and update from juancho david. patient is on bed awake. not in acute in acute distress. no arrythmias reported during the night. bed is low and locked for safety. will follow plan of care.
--- NOTE | 2019-11-15 07:45 | Pulmonology Progress Note ---
Subjective ROS Limited/Unobtainable: Yes Constitutional: Denies: fever Allergies: Coded Allergies: No Known Allergies (Unverified , 05/19/19) All Systems: reviewed and negative except above Subjective care noted wbc normal ID noted cx noted- GNR sputum HIDA pending Objective Last 24 Hour Vital Signs Date Time Temp Pulse Resp B/P (MAP) Pulse Ox O2 Delivery O2 Flow Rate FiO2 11/15/19 07:39 40 11/15/19 07:30 76 18 40 11/15/19 04:00 Mechanical Ventilator 11/15/19 04:00 98.0 87 19 124/77 (93) 100 11/15/19 04:00 80 11/15/19 04:00 40 11/15/19 03:10 87 17 40 11/15/19 00:00 Mechanical Ventilator 11/15/19 00:00 40 11/15/19 00:00 97.7 68 16 117/64 (81) 100 11/15/19 00:00 63 11/14/19 22:31 98 18 40 11/14/19 20:00 Mechanical Ventilator 11/14/19 20:00 40 11/14/19 20:00 97.9 76 16 134/80 (98) 100 11/14/19 19:39 74 11/14/19 19:12 80 19 40 11/14/19 16:02 94 11/14/19 16:00 97.2 107 22 139/82 (101) 100 11/14/19 16:00 Mechanical Ventilator 11/14/19 16:00 40 11/14/19 15:14 110 18 40 11/14/19 12:00 40 11/14/19 12:00 Mechanical Ventilator 11/14/19 12:00 84 11/14/19 12:00 98.1 86 21 133/86 (102) 100 11/14/19 11:05 91 17 40 11/14/19 09:06 97.7 11/14/19 08:23 81 133/81 11/14/19 08:00 80 11/14/19 08:00 Mechanical Ventilator 11/14/19 08:00 97.7 81 17 133/81 (98) 97 11/14/19 08:00 40 Intake and Output 11/14/19 11/15/19 19:00 07:00 Intake Total 1044.166 ml 887.5 ml Output Total 1750 ml 600 ml Balance -705.834 ml 287.5 ml Free Water 100 ml 90 ml IV Total 559.166 ml 137.5 ml Tube Feeding 385 ml 660 ml Output Urine Total 1750 ml 600 ml # Bowel Movements 3 1 Objective GENERAL: An ill-appearing female. on vent HEENT: Overall negative. The patient is able to move her eyes. NECK: Supple. Tracheostomy is midline. LUNGS: With moderate air entry. No rhonchi. no wheeze CARDIAC: S1, S2. Regular rate and rhythm without murmurs. ABDOMEN: Soft. G-tube in place. EXTREMITIES: No cyanosis or clubbing. Atrophy noted. NEUROLOGIC: Functional quadriplegic reviewed and edited. Microbiology Date/Time Source Procedure Growth Status 11/12/19 17:50 Sputum Gram Stain - Final Resulted 11/12/19 17:50 Sputum Culture - Preliminary Gram Negative Bigg Resulted Laboratory Tests 11/15/19 05:40: White Blood Count 10.3, Red Blood Count 3.51L, Hemoglobin 12.0, Hematocrit 34.8L , Mean Corpuscular Volume 99, Mean Corpuscular Hemoglobin 34.3H, Mean Corpuscular Hemoglobin Concent 34.6, Red Cell Distribution Width 12.8, Platelet Count 293, Mean Platelet Volume 6.7, Neutrophils (%) (Auto) 75.8H, Lymphocytes ( %) (Auto) 16.2L, Monocytes (%) (Auto) 4.5, Eosinophils (%) (Auto) 1.4, Basophils (%) (Auto) 2.1H, Sodium Level 143, Potassium Level 3.4L, Chloride Level 108H, Carbon Dioxide Level 24, Anion Gap 11, Blood Urea Nitrogen 17, Creatinine 0.6, Estimat Glomerular Filtration Rate > 60, Glucose Level 172H, Calcium Level 9.0 Current Medications Medications (Trade) Dose Ordered Sig/Kunal Route PRN Reason Start Time Stop Time Status Last Admin Dose Admin Acetaminophen (Tylenol) 650 mg Q4H PRN GT Mild Pain (Pain Scale 1-3) 11/12/19 05:30 12/12/19 05:29 11/12/19 22:32 Acetaminophen/ Hydrocodone Bitart ([place] 10/325) 1 tab Q8H PRN GT For Pain 11/12/19 05:45 11/19/19 05:44 11/15/19 03:34 Al Hydroxide/Mg Hydroxide (Mylanta) 30 ml Q4H PRN GT stomach upset 11/12/19 05:30 12/12/19 05:29 Amlodipine Besylate (Norvasc) 10 mg DAILY GT 11/12/19 09:00 12/12/19 08:59 11/14/19 08:23 Clonidine HCl (Catapres Tab) 0.1 mg Q4H PRN GT SBP>160 11/12/19 05:45 02/10/20 05:44 Diphenhydramine HCl (Benadryl) 25 mg Q6H PRN GT Itching 11/12/19 05:45 12/12/19 05:44 Heparin Sodium (Porcine) (Heparin 5000 units/ml) 5,000 units EVERY 12 HOURS SUBQ 11/12/19 09:00 12/27/19 08:59 11/14/19 21:19 Lansoprazole (Prevacid) 30 mg DAILY GT 11/12/19 09:00 12/12/19 08:59 11/14/19 08:22 Magnesium Hydroxide (Mom) 30 ml BEDTIME GT 11/12/19 21:00 12/12/19 20:59 11/14/19 21:19 Piperacillin Sod/ Tazobactam Sod 3.375 gm/Sodium Chloride 110 ml @ 27.5 mls/hr Q8HR IVPB 11/12/19 14:00 11/19/19 13:59 11/15/19 05:03 Theophylline (Theophylline) 80 mg Q12HR GT 11/12/19 09:00 02/10/20 08:59 11/14/19 21:18 Vancomycin HCl (Vanco pharmacy to dose) 1 ea DAILY PRN MISC Per rx protocol 11/12/19 05:30 12/12/19 05:29 Vancomycin HCl 750 mg/Dextrose 275 ml @ 183.333 mls/hr Q24H IVPB 11/12/19 11:00 11/17/19 10:59 11/14/19 11:18 Zolpidem Tartrate (Ambien) 5 mg BEDTIME PRN GT Insomnia 11/12/19 05:45 11/19/19 05:44 11/14/19 21:18 Assessment/Plan Assessment/Plan IMPRESSION: 1. Leukocytosis with concern for sepsis. 2. Possible cholecystitis, cholelithiasis. 3. Functional quadriplegic. 4. ALS. 5. Tracheostomy. 6. G-tube. 7. Mild protein-calorie malnutrition. 8. Anemia. PLAN vent support as is; on AC iv antibiotics routine care as is pain management monitor for change await final cultures hope to dc to snf in am if remains stable no wean HIDA pending off load impression, plan, and exam edited and reviewed in detail care discussed with Stas Granado MD Nov 15, 2019 07:45
[2019-11-15 08:00] VITALS: BP 129/57
--- NOTE | 2019-11-15 08:27 | NUR ---
RD ASSESSMENT & RECOMMENDATIONS SEE CARE ACTIVITY FOR COMPLETE ASSESSMENT DAILY ESTIMATED NEEDS: Needs based on Critical care, 48kg 22-28 kcals/kg 8826-9884 total kcals 1.2-2 g protein/kg 58-96 g total protein 25-30 mL/kg 7852-0407 total fluid mLs NUTRITION DIAGNOSIS: Swallowing difficulty r/t respiratory status as evidenced by pt w/ ALS, vent dep via trach, w/ GT feeds. CURRENT TF:Glucerna 1.2 @55ml/hr x20 hrs ENTERAL NUTRITION RECOMMENDATIONS: Glucerna 1.2 @ 55ml/hr x20 hrs to provide 1100ml, 1320 kcal, 66g pro, 886ml free H2O - Maintain current TF order - HOB over 30 degrees - Water flush of 170ml q 8hrs ADDITIONAL RECOMMENDATIONS: 1) Per SNF record: last oe=[id number] (10/28), HT=61" 2) Check lytes daily, replete as needed (low K) 3) Monitor BGs, need for NISS 4) Check A1C for eval of glycemic control .
[2019-11-15] MEDS: Theophylline 80mg/15ml GT SCH ×2 (08:38→20:47)
[2019-11-15] MEDS: Heparin 5000 units/ml inj SUBQ SCH ×2 (08:40→20:50)
[2019-11-15] MEDS: Vancomycin 750mg/D5W 275ml IVPB SCH ×2 (10:09)
--- NOTE | 2019-11-15 10:36 | Infectious Diseases Prog Note ---
Assessment/Plan Assessment/Plan antibiotics : vancomycin iv, zosyn A 1. gram negative pneumonia 2. ? cholecystitis 3. respiratory failure 4. leucocytosis resolved 5. dementia P 1. continue zosyn 2. d/c iv vancomycin 3. will follow up cultures Subjective ROS Limited/Unobtainable: Yes Allergies: Coded Allergies: No Known Allergies (Unverified , 05/19/19) Objective Vital Signs Last 24 Hour Vital Signs Date Time Temp Pulse Resp B/P (MAP) Pulse Ox O2 Delivery O2 Flow Rate FiO2 11/15/19 08:38 71 129/57 11/15/19 08:00 65 11/15/19 08:00 Mechanical Ventilator 11/15/19 08:00 97.5 71 16 129/57 (81) 100 11/15/19 07:39 40 11/15/19 07:30 76 18 40 11/15/19 04:00 Mechanical Ventilator 11/15/19 04:00 98.0 87 19 124/77 (93) 100 11/15/19 04:00 80 11/15/19 04:00 40 11/15/19 03:10 87 17 40 11/15/19 00:00 Mechanical Ventilator 11/15/19 00:00 40 11/15/19 00:00 97.7 68 16 117/64 (81) 100 11/15/19 00:00 63 11/14/19 22:31 98 18 40 11/14/19 20:00 Mechanical Ventilator 11/14/19 20:00 40 11/14/19 20:00 97.9 76 16 134/80 (98) 100 11/14/19 19:39 74 11/14/19 19:12 80 19 40 11/14/19 16:02 94 11/14/19 16:00 97.2 107 22 139/82 (101) 100 11/14/19 16:00 Mechanical Ventilator 11/14/19 16:00 40 11/14/19 15:14 110 18 40 11/14/19 12:00 40 11/14/19 12:00 Mechanical Ventilator 11/14/19 12:00 84 11/14/19 12:00 98.1 86 21 133/86 (102) 100 11/14/19 11:05 91 17 40 Height (Feet): 5 Height (Inches): 1.00 Weight (Pounds): 106 HEENT: status post trach Respiratory/Chest: lungs clear Cardiovascular: normal rate, regular rhythm, no gallop/murmur Abdomen: soft, non tender, other - GT Extremities: no edema Microbiology Date/Time Source Procedure Growth Status 11/12/19 17:50 Sputum Gram Stain - Final Resulted 11/12/19 17:50 Sputum Culture - Preliminary Gram Negative Bigg Resulted Laboratory Tests Test 11/15/19 05:40 White Blood Count 10.3 K/UL (4.8-10.8) Red Blood Count 3.51 M/UL (4.20-5.40) L Hemoglobin 12.0 G/DL (12.0-16.0) Hematocrit 34.8 % (37.0-47.0) L Mean Corpuscular Volume 99 FL (80-99) Mean Corpuscular Hemoglobin 34.3 PG (27.0-31.0) H Mean Corpuscular Hemoglobin Concent 34.6 G/DL (32.0-36.0) Red Cell Distribution Width 12.8 % (11.6-14.8) Platelet Count 293 K/UL (150-450) Mean Platelet Volume 6.7 FL (6.5-10.1) Neutrophils (%) (Auto) 75.8 % (45.0-75.0) H Lymphocytes (%) (Auto) 16.2 % (20.0-45.0) L Monocytes (%) (Auto) 4.5 % (1.0-10.0) Eosinophils (%) (Auto) 1.4 % (0.0-3.0) Basophils (%) (Auto) 2.1 % (0.0-2.0) H Sodium Level 143 MMOL/L (136-145) Potassium Level 3.4 MMOL/L (3.5-5.1) L Chloride Level 108 MMOL/L (98-107) H Carbon Dioxide Level 24 MMOL/L (21-32) Anion Gap 11 mmol/L (5-15) Blood Urea Nitrogen 17 mg/dL (7-18) Creatinine 0.6 MG/DL (0.55-1.30) Estimat Glomerular Filtration Rate > 60 mL/min (>60) Glucose Level 172 MG/DL (74-106) H Calcium Level 9.0 MG/DL (8.5-10.1) Current Medications Medications (Trade) Dose Ordered Sig/Kunal Route PRN Reason Start Time Stop Time Status Last Admin Dose Admin Acetaminophen (Tylenol) 650 mg Q4H PRN GT Mild Pain (Pain Scale 1-3) 11/12/19 05:30 12/12/19 05:29 11/12/19 22:32 Acetaminophen/ Hydrocodone Bitart ([place] 10/325) 1 tab Q8H PRN GT For Pain 11/12/19 05:45 11/19/19 05:44 11/15/19 03:34 Al Hydroxide/Mg Hydroxide (Mylanta) 30 ml Q4H PRN GT stomach upset 11/12/19 05:30 12/12/19 05:29 Amlodipine Besylate (Norvasc) 10 mg DAILY GT 11/12/19 09:00 12/12/19 08:59 11/15/19 08:38 Clonidine HCl (Catapres Tab) 0.1 mg Q4H PRN GT SBP>160 11/12/19 05:45 02/10/20 05:44 Diphenhydramine HCl (Benadryl) 25 mg Q6H PRN GT Itching 11/12/19 05:45 12/12/19 05:44 Heparin Sodium (Porcine) (Heparin 5000 units/ml) 5,000 units EVERY 12 HOURS SUBQ 11/12/19 09:00 12/27/19 08:59 11/15/19 08:40 Lansoprazole (Prevacid) 30 mg DAILY GT 11/12/19 09:00 12/12/19 08:59 11/15/19 08:38 Magnesium Hydroxide (Mom) 30 ml BEDTIME GT 11/12/19 21:00 12/12/19 20:59 11/14/19 21:19 Piperacillin Sod/ Tazobactam Sod 3.375 gm/Sodium Chloride 110 ml @ 27.5 mls/hr Q8HR IVPB 11/12/19 14:00 11/19/19 13:59 11/15/19 05:03 Theophylline (Theophylline) 80 mg Q12HR GT 11/12/19 09:00 02/10/20 08:59 11/15/19 08:38 Vancomycin HCl (Vanco pharmacy to dose) 1 ea DAILY PRN MISC Per rx protocol 11/12/19 05:30 12/12/19 05:29 Vancomycin HCl 750 mg/Dextrose 275 ml @ 183.333 mls/hr Q24H IVPB 11/12/19 11:00 11/17/19 10:59 11/15/19 10:09 Zolpidem Tartrate (Ambien) 5 mg BEDTIME PRN GT Insomnia 11/12/19 05:45 11/19/19 05:44 11/14/19 21:18 Thai Manning MD Nov 15, 2019 10:36
[2019-11-15 12:00] VITALS: BP 147/69
--- NOTE | 2019-11-15 14:15 | Diagnostic Imaging Report ---
EXAM: ULTRASOUND US ABD Complete CLINICAL HISTORY: Reason For Exam: ABD PAIN. COMPARISON: None TECHNIQUE: Ultrasound examination of the abdomen includes grayscale images, and color and spectral doppler analysis. FINDINGS: Study limited due to overlying bowel gas. Midline structures are obscured. The liver and spleen are grossly homogeneous to the extent visualized. Gallstones and small amount of sludge noted. Common bile duct measures 6 mm. Pancreas, aorta and cava are not well visualized right kidneys unremarkable. There is a stone at the lower pole of the left kidney. No hydronephrosis bilaterally. Aorta and cava are within normal limits. IMPRESSION: STUDY LIMITED DUE TO BOWEL GAS. MIDLINE STRUCTURES INCLUDING AORTA, CAVA AND PANCREAS ARE POORLY VISUALIZED. GALLSTONES AND SMALL AMOUNT OF SLUDGE.
[2019-11-15 15:51] VITALS: BP 146/89
--- NOTE | 2019-11-15 16:14 | NUR ---
CASE MANAGEMENT: REVIEW SI: GRAM NEGATIVE PNEUMONIA T 98.8 HR 94 RR 16 BP 146/89 SAT 98% MECH VENT FIO2 40 K 3.4 CHLORIDE 108 GLUCOSE 172 IS: THEOPHYLLINE GT Q12HR ZOSYN IV Q8HR HEPARIN SUBQ Q12HR STEP DOWN UNIT STATUS DCP: PATIENT IS FROM [facility]
--- NOTE | 2019-11-15 16:17 | General Progress Note ---
Assessment/Plan Problem List: (1) Cholecystitis ICD Codes: K81.9 - Cholecystitis, unspecified SNOMED: 84999878 (2) Pneumonia ICD Codes: J18.9 - Pneumonia, unspecified organism SNOMED: 106502344 (3) ALS (amyotrophic lateral sclerosis) ICD Codes: G12.21 - Amyotrophic lateral sclerosis SNOMED: 03299757 (4) Elevated troponin ICD Codes: R79.89 - Other specified abnormal findings of blood chemistry SNOMED: 100680680, 963119154, 178689706 (5) Sepsis ICD Codes: A41.9 - Sepsis, unspecified organism SNOMED: 12373148 Status: stable, progressing Assessment/Plan: replace k gt feeds iv abx per id follow up cultures hida scan vent support resp rx skin care Subjective ROS Limited/Unobtainable: Yes Constitutional: Reports: malaise, weakness HEENT: Reports: no symptoms Cardiovascular: Reports: no symptoms Respiratory: Reports: cough, sputum Gastrointestinal/Abdominal: Reports: difficulty swallowing Genitourinary: Reports: no symptoms Neurologic/Psychiatric: Reports: pre-existing deficit Endocrine: Reports: no symptoms Hematologic/Lymphatic: Reports: no symptoms Allergies: Coded Allergies: No Known Allergies (Unverified , 05/19/19) All Systems: reviewed and negative except above Subjective no evens. stable on the vent. no fevers. tolerating gt feeds. Low K noted. WBC improving. on abx. hida pending. sputum with gnr Objective Last 24 Hour Vital Signs Date Time Temp Pulse Resp B/P (MAP) Pulse Ox O2 Delivery O2 Flow Rate FiO2 11/15/19 16:00 40 11/15/19 16:00 Mechanical Ventilator 11/15/19 15:51 98.8 94 16 146/89 (108) 98 11/15/19 15:11 94 24 40 11/15/19 12:00 Mechanical Ventilator 11/15/19 12:00 40 11/15/19 12:00 98.6 72 19 147/69 (95) 100 11/15/19 11:30 82 11/15/19 10:45 72 16 40 11/15/19 08:38 71 129/57 11/15/19 08:00 65 11/15/19 08:00 Mechanical Ventilator 11/15/19 08:00 97.5 71 16 129/57 (81) 100 11/15/19 07:39 40 11/15/19 07:30 76 18 40 11/15/19 04:00 Mechanical Ventilator 11/15/19 04:00 98.0 87 19 124/77 (93) 100 11/15/19 04:00 80 11/15/19 04:00 40 11/15/19 03:10 87 17 40 11/15/19 00:00 Mechanical Ventilator 11/15/19 00:00 40 11/15/19 00:00 97.7 68 16 117/64 (81) 100 11/15/19 00:00 63 11/14/19 22:31 98 18 40 11/14/19 20:00 Mechanical Ventilator 11/14/19 20:00 40 11/14/19 20:00 97.9 76 16 134/80 (98) 100 11/14/19 19:39 74 11/14/19 19:12 80 19 40 Intake and Output 11/14/19 11/15/19 19:00 07:00 Intake Total 1044.166 ml 887.5 ml Output Total 1750 ml 600 ml Balance -705.834 ml 287.5 ml Free Water 100 ml 90 ml IV Total 559.166 ml 137.5 ml Tube Feeding 385 ml 660 ml Output Urine Total 1750 ml 600 ml # Bowel Movements 3 1 Laboratory Tests 11/15/19 05:40: White Blood Count 10.3, Red Blood Count 3.51L, Hemoglobin 12.0, Hematocrit 34.8L , Mean Corpuscular Volume 99, Mean Corpuscular Hemoglobin 34.3H, Mean Corpuscular Hemoglobin Concent 34.6, Red Cell Distribution Width 12.8, Platelet Count 293, Mean Platelet Volume 6.7, Neutrophils (%) (Auto) 75.8H, Lymphocytes ( %) (Auto) 16.2L, Monocytes (%) (Auto) 4.5, Eosinophils (%) (Auto) 1.4, Basophils (%) (Auto) 2.1H, Sodium Level 143, Potassium Level 3.4L, Chloride Level 108H, Carbon Dioxide Level 24, Anion Gap 11, Blood Urea Nitrogen 17, Creatinine 0.6, Estimat Glomerular Filtration Rate > 60, Glucose Level 172H, Calcium Level 9.0 Height (Feet): 5 Height (Inches): 1.00 Weight (Pounds): 106 Objective General Appearance: WD/WN, alert, confused EENT: PERRL/EOMI, normal ENT inspection Neck: non-tender, normal alignment Cardiovascular: normal rate, regular rhythm Respiratory/Chest: chest wall non-tender, lungs clear, normal breath sounds, no respiratory distress Abdomen: normal bowel sounds, non tender, soft, no organomegaly Edema: no edema noted Arm (L), no edema noted Arm (R) Neurologic: alert, responsive, disoriented Skin: normal pigmentation Lymphatic: normal anterior cervical (L), normal anterior cervical (R) Harry Reza MD Nov 15, 2019 16:17
--- NOTE | 2019-11-15 19:09 | NUR ---
HAND-OFF: Report given to josé david.
--- NOTE | 2019-11-15 19:35 | NUR ---
"NURSE NOTES: Received report from MARCELLUS Lopez. Patient appears awake in bed with eyes open. Alert and able to make needs known. No signs of acute respiratory or cardiac distress noted. Patient tolerating vent settings as ordered: A/C 16 | TV 450 | FiO2 40% | Peep 5. Patient noted with g-tube running glucerna 1.2 at 55 mL/hour. HOB is elevated. Feldman patent and intact draining well to gravity. Noted with Right forearm 22 gauge and Left hand 22 gauge. Patent and intact. Safety precautions implemented: bed in lowest and locked position, call light within reach. Will continue to monitor."
[2019-11-15 20:00] VITALS: BP 111/75
[2019-11-15] MEDS: Milk of Magnesia 30ml Ud GT SCH (20:47)
[2019-11-15] MEDS: Zolpidem 5mg tab GT PRN (21:36)
--- NOTE | 2019-11-15 22:00 | Surgery Progress Note ---
Surgery Progress Note Subjective Additional Comments US noted - limited given bowel gas wbc resolved lft's okay HIDA ordered and pending Objective Last 24 Hour Vital Signs Date Time Temp Pulse Resp B/P (MAP) Pulse Ox O2 Delivery O2 Flow Rate FiO2 11/15/19 19:49 88 18 40 11/15/19 16:28 85 11/15/19 16:00 40 11/15/19 16:00 Mechanical Ventilator 11/15/19 15:51 98.8 94 16 146/89 (108) 98 11/15/19 15:11 94 24 40 11/15/19 12:00 Mechanical Ventilator 11/15/19 12:00 40 11/15/19 12:00 98.6 72 19 147/69 (95) 100 11/15/19 11:30 82 11/15/19 10:45 72 16 40 11/15/19 08:38 71 129/57 11/15/19 08:00 65 11/15/19 08:00 Mechanical Ventilator 11/15/19 08:00 97.5 71 16 129/57 (81) 100 11/15/19 07:39 40 11/15/19 07:30 76 18 40 11/15/19 04:00 Mechanical Ventilator 11/15/19 04:00 98.0 87 19 124/77 (93) 100 11/15/19 04:00 80 11/15/19 04:00 40 11/15/19 03:10 87 17 40 11/15/19 00:00 Mechanical Ventilator 11/15/19 00:00 40 11/15/19 00:00 97.7 68 16 117/64 (81) 100 11/15/19 00:00 63 11/14/19 22:31 98 18 40 I&O Intake and Output 11/14/19 11/15/19 19:00 07:00 Intake Total 1044.166 ml 887.5 ml Output Total 1750 ml 600 ml Balance -705.834 ml 287.5 ml Free Water 100 ml 90 ml IV Total 559.166 ml 137.5 ml Tube Feeding 385 ml 660 ml Output Urine Total 1750 ml 600 ml # Bowel Movements 3 1 Cardiovascular: RSR Respiratory: clear, decreased breath sounds Abdomen: soft, non-tender, present bowel sounds, non-distended Extremities: no edema, no tenderness, no cyanosis Laboratory Tests Test 11/15/19 05:40 White Blood Count 10.3 K/UL (4.8-10.8) Red Blood Count 3.51 M/UL (4.20-5.40) L Hemoglobin 12.0 G/DL (12.0-16.0) Hematocrit 34.8 % (37.0-47.0) L Mean Corpuscular Volume 99 FL (80-99) Mean Corpuscular Hemoglobin 34.3 PG (27.0-31.0) H Mean Corpuscular Hemoglobin Concent 34.6 G/DL (32.0-36.0) Red Cell Distribution Width 12.8 % (11.6-14.8) Platelet Count 293 K/UL (150-450) Mean Platelet Volume 6.7 FL (6.5-10.1) Neutrophils (%) (Auto) 75.8 % (45.0-75.0) H Lymphocytes (%) (Auto) 16.2 % (20.0-45.0) L Monocytes (%) (Auto) 4.5 % (1.0-10.0) Eosinophils (%) (Auto) 1.4 % (0.0-3.0) Basophils (%) (Auto) 2.1 % (0.0-2.0) H Sodium Level 143 MMOL/L (136-145) Potassium Level 3.4 MMOL/L (3.5-5.1) L Chloride Level 108 MMOL/L (98-107) H Carbon Dioxide Level 24 MMOL/L (21-32) Anion Gap 11 mmol/L (5-15) Blood Urea Nitrogen 17 mg/dL (7-18) Creatinine 0.6 MG/DL (0.55-1.30) Estimat Glomerular Filtration Rate > 60 mL/min (>60) Glucose Level 172 MG/DL (74-106) H Calcium Level 9.0 MG/DL (8.5-10.1) Plan Problems: (1) Pneumonia (2) Hypokalemia (3) SOB (shortness of breath) (4) Sepsis Assessment & Plan: 64-year-old female significant leukocytosis 30,000, anemia, CT as below potential cholecystitis. Surgery called to evaluate. Patient seen patient evaluated chart reviewed patient denies any discomfort. Unable to speak but she can follow directions and mouth or voice herself with facial reactions. When asked about pain denies states she is hungry when palpated in the right upper quadrant denies any pain no abdominal tenderness on examination. Labs noted imaging reviewed. Ultrasound abdomen ordered to evaluate gallbladder more specific than CT scan continue antibiotics per infectious disease IV fluids okay for diet from surgical standpoint Based on clinical examination unlikely cholecystitis no Hardwick's no tenderness no abdominal complaints Potential pneumonia Preventative measures taken air mattress given patient's baseline condition malnutrition and her bedbound condition. OPTi foam presentation dressings applied and bony prominences Turn every 2 hours Nutritional optimization wbc improving labs noted US noted leukocytosis resolved improving HIDA pending The liver and spleen are grossly homogeneous to the extent visualized. Gallstones and small amount of sludge noted. Common bile duct measures 6 mm. Pancreas, aorta and cava are not well visualized right kidneys unremarkable. There is a stone at the lower pole of the left kidney. No hydronephrosis bilaterally. Aorta and cava are within normal limits. ABDOMEN: Liver: Unremarkable. Gallbladder and bile ducts: Several gallstones are noted. There is suggestion of gallbladder wall thickening. No ductal dilation. Pancreas: Unremarkable. No ductal dilation. Spleen: Unremarkable. No splenomegaly. Adrenals: Unremarkable. No mass. Kidneys and ureters: The right renal collecting system is prominent but without lino hydronephrosis. There is a 7 mm nonobstructing stone in the lower pole of the left kidney. Both ureters are normal as seen. Stomach and bowel: A gastrostomy tube is in appropriate position. There is no bowel obstruction. A moderate amount of stool is noted throughout the colon, particularly within the distal sigmoid colon and rectum, possibly representing mild fecal impaction. There are no inflammatory changes in the bowel mesentery.. PELVIS: Appendix: No findings to suggest acute appendicitis. Bladder: There is an indwelling Feldman catheter was is presumed to be clamped as the bladder is moderately distended with fluid, with a small air-fluid level. No stones. Reproductive: There is a 9 mm calcification in the fundus of the uterus, likely small calcified uterine fibroids. The adnexa are unremarkable. ABDOMEN and PELVIS: Intraperitoneal space: Unremarkable. No free air. No significant fluid collection. Bones/joints: No acute fracture. No dislocation. Soft tissues: Unremarkable. Vasculature: Unremarkable. Lymph nodes: There are small calcified lymph nodes in the subcarinal and left hilar regions. IMPRESSION: 1. Cholelithiasis with suggestion of gallbladder wall thickening. Correlation with clinical findings is recommended to assess for the possibility of acute cholecystitis. Ultrasound may be helpful for further assessment. 2. Nonobstructing left renal stone. 3. Possible fecal impaction. 4. Significant atelectasis in the left lower lobe. (5) Chest pain (6) ALS (amyotrophic lateral sclerosis) (7) Elevated troponin Aly Awad Nov 15, 2019 22:00
[2019-11-16] VITALS: BP 123/69
[2019-11-16 04:00] VITALS: BP 113/78
[2019-11-16] MEDS: HYDROcodone/Acetamin 10/325 tab GT PRN ×2 (04:49→13:32)
[2019-11-16] MEDS: Piperacillin/Tazobactam 3.375 GM in NS 110 ML IVPB SCH (05:09)
[2019-11-16 05:17] LABS: BASOPHILS % (AUTO) 2.6 % (0.0-2.0); EOSINOPHILS % (AUTO) 2.4 % (0.0-3.0); HEMATOCRIT 35.3 % (37.0-47.0); MEAN CORPUSCULAR VOLUME 99 FL (80-99); MONOCYTES % (AUTO) 8.2 % (1.0-10.0); NEUTROPHILS % (AUTO) 60.9 % (45.0-75.0); PLATELET COUNT 298 K/UL (150-450); RED BLOOD COUNT 3.57 M/UL (4.20-5.40); RED CELL DISTRIBUTION WIDTH 12.6 % (11.6-14.8)
[2019-11-16 05:41] LABS: ALANINE AMINOTRANSFERASE 27 U/L (12-78); ALBUMIN 3.4 G/DL (3.4-5.0); ALBUMIN/GLOBULIN RATIO 0.9 (1.0-2.7); ALKALINE PHOSPHATASE 97 U/L (46-116); AMYLASE 55 U/L (25-115); ANION GAP 10 mmol/L (5-15); ASPARTATE AMINO TRANSFERASE 23 U/L (15-37); BILIRUBIN,TOTAL 0.3 MG/DL (0.2-1.0); BLOOD UREA NITROGEN 19 mg/dL (7-18); CALCIUM 8.9 MG/DL (8.5-10.1); CARBON DIOXIDE 24 MMOL/L (21-32); CHLORIDE 108 MMOL/L (98-107); CREATININE 0.7 MG/DL (0.55-1.30); POTASSIUM 3.8 MMOL/L (3.5-5.1); SODIUM 142 MMOL/L (136-145)
--- NOTE | 2019-11-16 07:02 | NUR ---
HAND-OFF: Report given to MARCELLUS Almeida- pt. remains stable and no signs of distress noted- report given by MARCELLUS Hoang,
--- NOTE | 2019-11-16 07:20 | NUR ---
NURSE NOTES: Received report from MARCELLUS Mccoy. Pt appears to be A & O x 2-3, following commands and able to make needs known by using communication board and mouthing words. Trach to vent, Portex 8- AC 16, TV 450, FiO2 40%, PEEP 5. O2sat 99-100%. Rt FA #22g running TKO. GTube running Glucerna 1.2 @ 55mL/hr x 20 hours -will hold at 0800 to 1200. Pt has a Feldman catheter draining yellow urine to urometer. Bed locked and in lowest position. Safety precautions maintained. Will continue to monitor.
[2019-11-16 08:00] VITALS: BP 122/75
--- NOTE | 2019-11-16 08:32 | General Progress Note ---
Assessment/Plan Problem List: (1) Cholecystitis ICD Codes: K81.9 - Cholecystitis, unspecified SNOMED: 03639311 (2) Pneumonia ICD Codes: J18.9 - Pneumonia, unspecified organism SNOMED: 555326504 (3) ALS (amyotrophic lateral sclerosis) ICD Codes: G12.21 - Amyotrophic lateral sclerosis SNOMED: 21846199 (4) Elevated troponin ICD Codes: R79.89 - Other specified abnormal findings of blood chemistry SNOMED: 276867681, 591555076, 585103645 (5) Sepsis ICD Codes: A41.9 - Sepsis, unspecified organism SNOMED: 19546781 Status: stable, progressing Assessment/Plan: cont current rx gt feeds iv abx per id follow up cultures hida scan vent support resp rx skin care Subjective ROS Limited/Unobtainable: No Constitutional: Reports: malaise, weakness HEENT: Reports: no symptoms Cardiovascular: Reports: no symptoms Respiratory: Reports: sputum Gastrointestinal/Abdominal: Reports: difficulty swallowing Genitourinary: Reports: no symptoms Neurologic/Psychiatric: Reports: pre-existing deficit Endocrine: Reports: no symptoms Hematologic/Lymphatic: Reports: no symptoms Allergies: Coded Allergies: No Known Allergies (Unverified , 05/19/19) All Systems: reviewed and negative except above Subjective no evens. stable on the vent. no fevers. alert. no distress. tolerating gt feeds. WBC improving. on abx. hida pending. Objective Last 24 Hour Vital Signs Date Time Temp Pulse Resp B/P (MAP) Pulse Ox O2 Delivery O2 Flow Rate FiO2 11/16/19 07:27 87 20 40 11/16/19 04:00 Mechanical Ventilator 11/16/19 04:00 40 11/16/19 04:00 98.6 89 18 113/78 (90) 100 11/16/19 03:56 75 18 40 11/16/19 03:01 65 11/16/19 00:00 Mechanical Ventilator 11/16/19 00:00 98.4 72 18 123/69 (87) 100 11/15/19 23:44 77 18 40 11/15/19 23:26 69 11/15/19 20:00 40 11/15/19 20:00 Mechanical Ventilator 11/15/19 20:00 95.5 79 18 111/75 (87) 99 11/15/19 19:49 88 18 40 6/22/20 19:15 77 11/15/19 16:28 85 11/15/19 16:00 40 11/15/19 16:00 Mechanical Ventilator 11/15/19 15:51 98.8 94 16 146/89 (108) 98 11/15/19 15:11 94 24 40 11/15/19 12:00 Mechanical Ventilator 11/15/19 12:00 40 11/15/19 12:00 98.6 72 19 147/69 (95) 100 11/15/19 11:30 82 11/15/19 10:45 72 16 40 11/15/19 08:38 71 129/57 Intake and Output 11/15/19 11/16/19 19:00 07:00 Intake Total 535.0 ml 847.5 ml Output Total 1100 ml 300 ml Balance -565.0 ml 547.5 ml Free Water 40 ml 50 ml IV Total 110.0 ml 137.5 ml Tube Feeding 385 ml 660 ml Output Urine Total 1100 ml 300 ml # Bowel Movements 3 Laboratory Tests 11/16/19 04:00: White Blood Count 9.0, Red Blood Count 3.57L, Hemoglobin 12.0, Hematocrit 35.3L , Mean Corpuscular Volume 99, Mean Corpuscular Hemoglobin 33.5H, Mean Corpuscular Hemoglobin Concent 33.9, Red Cell Distribution Width 12.6, Platelet Count 298, Mean Platelet Volume 6.6, Neutrophils (%) (Auto) 60.9, Lymphocytes (% ) (Auto) 26.0, Monocytes (%) (Auto) 8.2, Eosinophils (%) (Auto) 2.4, Basophils ( %) (Auto) 2.6H, Erythrocyte Sedimentation Rate 75H, Sodium Level 142, Potassium Level 3.8, Chloride Level 108H, Carbon Dioxide Level 24, Anion Gap 10, Blood Urea Nitrogen 19H, Creatinine 0.7, Estimat Glomerular Filtration Rate > 60, Glucose Level 146H, Calcium Level 8.9, Total Bilirubin 0.3, Aspartate Amino Transf (AST/SGOT) 23, Alanine Aminotransferase (ALT/SGPT) 27, Alkaline Phosphatase 97, C-Reactive Protein, Quantitative 2.0H, Total Protein 7.3, Albumin 3.4, Globulin 3.9, Albumin/Globulin Ratio 0.9L, Amylase Level 55, Lipase 474H Height (Feet): 5 Height (Inches): 1.00 Weight (Pounds): 106 Objective General Appearance: WD/WN, alert, confused EENT: PERRL/EOMI, normal ENT inspection Neck: non-tender, normal alignment Cardiovascular: normal rate, regular rhythm Respiratory/Chest: chest wall non-tender, lungs clear, normal breath sounds, no respiratory distress Abdomen: normal bowel sounds, non tender, soft, no organomegaly Edema: no edema noted Arm (L), no edema noted Arm (R) Neurologic: alert, responsive, disoriented Skin: normal pigmentation Lymphatic: normal anterior cervical (L), normal anterior cervical (R) Harry Reza MD Nov 16, 2019 08:32
[2019-11-16] MEDS: Theophylline 80mg/15ml GT SCH ×2 (09:35→21:08)
[2019-11-16] MEDS: Heparin 5000 units/ml inj SUBQ SCH ×2 (09:36→21:09)
--- NOTE | 2019-11-16 10:23 | Infectious Diseases Prog Note ---
"Assessment/Plan Assessment/Plan antibiotics : zosyn A 1. proteus | pseudomonas | acenitobacter pneumonia 2. ? cholecystitis 3. respiratory failure 4. leucocytosis resolved 5. dementia P 1. d/c zosyn 2. start meropenem 3. will follow up cultures 4. HIDA scan pending Subjective ROS Limited/Unobtainable: Yes Allergies: Coded Allergies: No Known Allergies (Unverified , 05/19/19) Objective Vital Signs Last 24 Hour Vital Signs Date Time Temp Pulse Resp B/P (MAP) Pulse Ox O2 Delivery O2 Flow Rate FiO2 11/16/19 09:35 82 122/75 11/16/19 07:27 87 20 40 11/16/19 04:00 Mechanical Ventilator 11/16/19 04:00 40 11/16/19 04:00 98.6 89 18 113/78 (90) 100 11/16/19 03:56 75 18 40 11/16/19 03:01 65 11/16/19 00:00 Mechanical Ventilator 11/16/19 00:00 98.4 72 18 123/69 (87) 100 11/15/19 23:44 77 18 40 11/15/19 23:26 69 11/15/19 20:00 40 11/15/19 20:00 Mechanical Ventilator 11/15/19 20:00 95.5 79 18 111/75 (87) 99 11/15/19 19:49 88 18 40 11/15/19 19:15 77 11/15/19 16:28 85 11/15/19 16:00 40 11/15/19 16:00 Mechanical Ventilator 11/15/19 15:51 98.8 94 16 146/89 (108) 98 11/15/19 15:11 94 24 40 11/15/19 12:00 Mechanical Ventilator 11/15/19 12:00 40 11/15/19 12:00 98.6 72 19 147/69 (95) 100 11/15/19 11:30 82 11/15/19 10:45 72 16 40 Height (Feet): 5 Height (Inches): 1.00 Weight (Pounds): 106 HEENT: status post trach Respiratory/Chest: lungs clear Cardiovascular: normal rate, regular rhythm, no gallop/murmur Abdomen: soft, non tender, other - GT Extremities: no edema Microbiology Date/Time Source Procedure Growth Status 11/14/19 12:00 Nasopharynx Coronavirus COVID-19 PCR ([facility]) - Final Complete Laboratory Tests Test 11/16/19 04:00 White Blood Count 9.0 K/UL (4.8-10.8) Red Blood Count 3.57 M/UL (4.20-5.40) L Hemoglobin 12.0 G/DL (12.0-16.0) Hematocrit 35.3 % (37.0-47.0) L Mean Corpuscular Volume 99 FL (80-99) Mean Corpuscular Hemoglobin 33.5 PG (27.0-31.0) H Mean Corpuscular Hemoglobin Concent 33.9 G/DL (32.0-36.0) Red Cell Distribution Width 12.6 % (11.6-14.8) Platelet Count 298 K/UL (150-450) Mean Platelet Volume 6.6 FL (6.5-10.1) Neutrophils (%) (Auto) 60.9 % (45.0-75.0) Lymphocytes (%) (Auto) 26.0 % (20.0-45.0) Monocytes (%) (Auto) 8.2 % (1.0-10.0) Eosinophils (%) (Auto) 2.4 % (0.0-3.0) Basophils (%) (Auto) 2.6 % (0.0-2.0) H Erythrocyte Sedimentation Rate 75 MM/HR (0-30) H Sodium Level 142 MMOL/L (136-145) Potassium Level 3.8 MMOL/L (3.5-5.1) Chloride Level 108 MMOL/L (98-107) H Carbon Dioxide Level 24 MMOL/L (21-32) Anion Gap 10 mmol/L (5-15) Blood Urea Nitrogen 19 mg/dL (7-18) H Creatinine 0.7 MG/DL (0.55-1.30) Estimat Glomerular Filtration Rate > 60 mL/min (>60) Glucose Level 146 MG/DL (74-106) H Calcium Level 8.9 MG/DL (8.5-10.1) Total Bilirubin 0.3 MG/DL (0.2-1.0) Aspartate Amino Transf (AST/SGOT) 23 U/L (15-37) Alanine Aminotransferase (ALT/SGPT) 27 U/L (12-78) Alkaline Phosphatase 97 U/L (46-116) C-Reactive Protein, Quantitative 2.0 mg/dL (0.00-0.90) H Total Protein 7.3 G/DL (6.4-8.2) Albumin 3.4 G/DL (3.4-5.0) Globulin 3.9 g/dL Albumin/Globulin Ratio 0.9 (1.0-2.7) L Amylase Level 55 U/L (25-115) Lipase 474 U/L (73-393) H Current Medications Medications (Trade) Dose Ordered Sig/Kunal Route PRN Reason Start Time Stop Time Status Last Admin Dose Admin Acetaminophen (Tylenol) 650 mg Q4H PRN GT Mild Pain (Pain Scale 1-3) 11/12/19 05:30 12/12/19 05:29 11/12/19 22:32 Acetaminophen/ Hydrocodone Bitart ([place] 10/325) 1 tab Q8H PRN GT For Pain 11/12/19 05:45 11/19/19 05:44 11/16/19 04:49 Al Hydroxide/Mg Hydroxide (Mylanta) 30 ml Q4H PRN GT stomach upset 11/12/19 05:30 12/12/19 05:29 Amlodipine Besylate (Norvasc) 10 mg DAILY GT 11/12/19 09:00 12/12/19 08:59 11/16/19 09:35 Clonidine HCl (Catapres Tab) 0.1 mg Q4H PRN GT SBP>160 11/12/19 05:45 02/10/20 05:44 Diphenhydramine HCl (Benadryl) 25 mg Q6H PRN GT Itching 11/12/19 05:45 12/12/19 05:44 Heparin Sodium (Porcine) (Heparin 5000 units/ml) 5,000 units EVERY 12 HOURS SUBQ 11/12/19 09:00 12/27/19 08:59 11/16/19 09:36 Lansoprazole (Prevacid) 30 mg DAILY GT 11/12/19 09:00 12/12/19 08:59 11/16/19 09:35 Magnesium Hydroxide (Mom) 30 ml BEDTIME GT 11/12/19 21:00 12/12/19 20:59 11/15/19 20:47 Piperacillin Sod/ Tazobactam Sod 3.375 gm/Sodium Chloride 110 ml @ 27.5 mls/hr Q8HR IVPB 11/12/19 14:00 11/19/19 13:59 11/16/19 05:09 Theophylline (Theophylline) 80 mg Q12HR GT 11/12/19 09:00 02/10/20 08:59 11/16/19 09:35 Zolpidem Tartrate (Ambien) 5 mg BEDTIME PRN GT Insomnia 11/12/19 05:45 11/19/19 05:44 11/15/19 21:36 Thai Manning MD Nov 16, 2019 10:23"
--- NOTE | 2019-11-16 10:47 | NUR ---
Spoke to MARCELLUS Almeida regarding HIDA Scan. Due to unavailability of nursing staff to accompany patient to nuclear medicine department for duration of scan, HIDA scan is being postponed.
--- NOTE | 2019-11-16 11:00 | NUR ---
NURSE NOTES: Droplet precautions discontinued as ordered by Dr Manning d/t pending COVID swab returning with a negative result.
[2019-11-16 12:00] VITALS: BP 121/72
--- NOTE | 2019-11-16 12:44 | Pulmonology Progress Note ---
Subjective ROS Limited/Unobtainable: Yes Constitutional: Denies: fever Allergies: Coded Allergies: No Known Allergies (Unverified , 05/19/19) All Systems: reviewed and negative except above Subjective care noted wbc normal ID noted cx noted- GNR sputum HIDA pending Objective Last 24 Hour Vital Signs Date Time Temp Pulse Resp B/P (MAP) Pulse Ox O2 Delivery O2 Flow Rate FiO2 11/16/19 10:54 92 19 40 11/16/19 09:35 82 122/75 11/16/19 08:00 96.8 82 18 122/75 (91) 99 11/16/19 08:00 Mechanical Ventilator 11/16/19 08:00 40 11/16/19 07:27 87 20 40 11/16/19 07:21 77 11/16/19 04:00 Mechanical Ventilator 11/16/19 04:00 40 11/16/19 04:00 98.6 89 18 113/78 (90) 100 11/16/19 03:56 75 18 40 11/16/19 03:01 65 11/16/19 00:00 Mechanical Ventilator 11/16/19 00:00 98.4 72 18 123/69 (87) 100 11/15/19 23:44 77 18 40 11/15/19 23:26 69 11/15/19 20:00 40 11/15/19 20:00 Mechanical Ventilator 11/15/19 20:00 95.5 79 18 111/75 (87) 99 11/15/19 19:49 88 18 40 11/15/19 19:15 77 11/15/19 16:28 85 11/15/19 16:00 40 11/15/19 16:00 Mechanical Ventilator 11/15/19 15:51 98.8 94 16 146/89 (108) 98 11/15/19 15:11 94 24 40 Intake and Output 11/15/19 11/16/19 19:00 07:00 Intake Total 535.0 ml 847.5 ml Output Total 1100 ml 300 ml Balance -565.0 ml 547.5 ml Free Water 40 ml 50 ml IV Total 110.0 ml 137.5 ml Tube Feeding 385 ml 660 ml Output Urine Total 1100 ml 300 ml # Bowel Movements 3 Objective GENERAL: An ill-appearing female. on vent HEENT: Overall negative. The patient is able to move her eyes. NECK: Supple. Tracheostomy is midline. LUNGS: With moderate air entry. No rhonchi. no wheeze CARDIAC: S1, S2. Regular rate and rhythm without murmurs. ABDOMEN: Soft. G-tube in place. EXTREMITIES: No cyanosis or clubbing. Atrophy noted. NEUROLOGIC: Functional quadriplegic reviewed and edited. Microbiology Date/Time Source Procedure Growth Status 11/14/19 12:00 Nasopharynx Coronavirus COVID-19 PCR ([facility]) - Final Complete Laboratory Tests 11/16/19 04:00: White Blood Count 9.0, Red Blood Count 3.57L, Hemoglobin 12.0, Hematocrit 35.3L , Mean Corpuscular Volume 99, Mean Corpuscular Hemoglobin 33.5H, Mean Corpuscular Hemoglobin Concent 33.9, Red Cell Distribution Width 12.6, Platelet Count 298, Mean Platelet Volume 6.6, Neutrophils (%) (Auto) 60.9, Lymphocytes (% ) (Auto) 26.0, Monocytes (%) (Auto) 8.2, Eosinophils (%) (Auto) 2.4, Basophils ( %) (Auto) 2.6H, Erythrocyte Sedimentation Rate 75H, Sodium Level 142, Potassium Level 3.8, Chloride Level 108H, Carbon Dioxide Level 24, Anion Gap 10, Blood Urea Nitrogen 19H, Creatinine 0.7, Estimat Glomerular Filtration Rate > 60, Glucose Level 146H, Calcium Level 8.9, Total Bilirubin 0.3, Aspartate Amino Transf (AST/SGOT) 23, Alanine Aminotransferase (ALT/SGPT) 27, Alkaline Phosphatase 97, C-Reactive Protein, Quantitative 2.0H, Total Protein 7.3, Albumin 3.4, Globulin 3.9, Albumin/Globulin Ratio 0.9L, Amylase Level 55, Lipase 474H Current Medications Medications (Trade) Dose Ordered Sig/Kunal Route PRN Reason Start Time Stop Time Status Last Admin Dose Admin Acetaminophen (Tylenol) 650 mg Q4H PRN GT Mild Pain (Pain Scale 1-3) 11/12/19 05:30 12/12/19 05:29 11/12/19 22:32 Acetaminophen/ Hydrocodone Bitart ([place] 10/325) 1 tab Q8H PRN GT For Pain 11/12/19 05:45 11/19/19 05:44 11/16/19 04:49 Al Hydroxide/Mg Hydroxide (Mylanta) 30 ml Q4H PRN GT stomach upset 11/12/19 05:30 12/12/19 05:29 Amlodipine Besylate (Norvasc) 10 mg DAILY GT 11/12/19 09:00 12/12/19 08:59 11/16/19 09:35 Clonidine HCl (Catapres Tab) 0.1 mg Q4H PRN GT SBP>160 11/12/19 05:45 02/10/20 05:44 Diphenhydramine HCl (Benadryl) 25 mg Q6H PRN GT Itching 11/12/19 05:45 12/12/19 05:44 Heparin Sodium (Porcine) (Heparin 5000 units/ml) 5,000 units EVERY 12 HOURS SUBQ 11/12/19 09:00 12/27/19 08:59 11/16/19 09:36 Lansoprazole (Prevacid) 30 mg DAILY GT 11/12/19 09:00 12/12/19 08:59 11/16/19 09:35 Magnesium Hydroxide (Mom) 30 ml BEDTIME GT 11/12/19 21:00 12/12/19 20:59 11/15/19 20:47 Meropenem 500 mg/ Sodium Chloride 55 ml @ 110 mls/hr EVERY 8 HOURS IVPB 11/16/19 14:00 11/21/19 13:59 Theophylline (Theophylline) 80 mg Q12HR GT 11/12/19 09:00 02/10/20 08:59 11/16/19 09:35 Zolpidem Tartrate (Ambien) 5 mg BEDTIME PRN GT Insomnia 11/12/19 05:45 11/19/19 05:44 11/15/19 21:36 Assessment/Plan Assessment/Plan IMPRESSION: 1. Leukocytosis with concern for sepsis. 2. Possible cholecystitis, cholelithiasis. 3. Functional quadriplegic. 4. ALS. 5. Tracheostomy. 6. G-tube. 7. Mild protein-calorie malnutrition. 8. Anemia. PLAN vent support as is; on AC iv antibiotics routine care as is pain management monitor for change await final cultures AND recommendations hope to dc to snf no wean HIDA pending- needed prior to dc off load impression, plan, and exam edited and reviewed in detail care discussed with Stas Granado MD Nov 16, 2019 12:44
[2019-11-16] MEDS: Meropenem 500 MG in NS 55 ML IVPB SCH ×2 (13:32→21:08)
--- NOTE | 2019-11-16 15:56 | NUR ---
CASE MANAGEMENT: REVIEW SI: GRAM NEGATIVE PNEUMONIA . CHOLELITHIASIS T 97.6 HR 82 RR 18 BP 122/75 SAT 98% MECH VENT FIO2 40 CHLORIDE 108 GLUCOSE 146 HIDA PENDING IS: MEROPENEM IV Q8HR THEOPHYLLINE GT Q12HR ZOSYN IV Q8HR HEPARIN SUBQ Q12HR STEP DOWN UNIT STATUS DCP: PATIENT IS FROM [facility]
[2019-11-16 16:00] VITALS: BP 136/76
--- NOTE | 2019-11-16 18:05 | Surgery Progress Note ---
Surgery Progress Note Subjective Symptoms: improved Additional Comments HIDA [pending Objective Last 24 Hour Vital Signs Date Time Temp Pulse Resp B/P (MAP) Pulse Ox O2 Delivery O2 Flow Rate FiO2 11/16/19 16:00 97.2 79 18 136/76 (96) 98 11/16/19 16:00 Mechanical Ventilator 11/16/19 16:00 80 11/16/19 16:00 40 11/16/19 15:02 89 22 40 11/16/19 12:00 Mechanical Ventilator 11/16/19 12:00 97.0 79 20 121/72 (88) 98 11/16/19 12:00 40 11/16/19 11:15 79 11/16/19 10:54 92 19 40 11/16/19 09:35 82 122/75 11/16/19 08:00 96.8 82 18 122/75 (91) 99 11/16/19 08:00 Mechanical Ventilator 11/16/19 08:00 40 11/16/19 07:27 87 20 40 11/16/19 07:21 77 11/16/19 04:00 Mechanical Ventilator 11/16/19 04:00 40 11/16/19 04:00 98.6 89 18 113/78 (90) 100 11/16/19 03:56 75 18 40 11/16/19 03:01 65 11/16/19 00:00 Mechanical Ventilator 11/16/19 00:00 98.4 72 18 123/69 (87) 100 11/15/19 23:44 77 18 40 11/15/19 23:26 69 11/15/19 20:00 40 11/15/19 20:00 Mechanical Ventilator 11/15/19 20:00 95.5 79 18 111/75 (87) 99 11/15/19 19:49 88 18 40 11/15/19 19:15 77 I&O Intake and Output 11/15/19 11/16/19 19:00 07:00 Intake Total 535.0 ml 875.0 ml Output Total 1100 ml 300 ml Balance -565.0 ml 575.0 ml Free Water 40 ml 50 ml IV Total 110.0 ml 165.0 ml Tube Feeding 385 ml 660 ml Output Urine Total 1100 ml 300 ml # Bowel Movements 3 Dressing: other Wound: other Drains: other Cardiovascular: RSR Respiratory: decreased breath sounds Abdomen: soft, non-tender, present bowel sounds Extremities: edema, no tenderness, no cyanosis Laboratory Tests Test 11/16/19 04:00 White Blood Count 9.0 K/UL (4.8-10.8) Red Blood Count 3.57 M/UL (4.20-5.40) L Hemoglobin 12.0 G/DL (12.0-16.0) Hematocrit 35.3 % (37.0-47.0) L Mean Corpuscular Volume 99 FL (80-99) Mean Corpuscular Hemoglobin 33.5 PG (27.0-31.0) H Mean Corpuscular Hemoglobin Concent 33.9 G/DL (32.0-36.0) Red Cell Distribution Width 12.6 % (11.6-14.8) Platelet Count 298 K/UL (150-450) Mean Platelet Volume 6.6 FL (6.5-10.1) Neutrophils (%) (Auto) 60.9 % (45.0-75.0) Lymphocytes (%) (Auto) 26.0 % (20.0-45.0) Monocytes (%) (Auto) 8.2 % (1.0-10.0) Eosinophils (%) (Auto) 2.4 % (0.0-3.0) Basophils (%) (Auto) 2.6 % (0.0-2.0) H Erythrocyte Sedimentation Rate 75 MM/HR (0-30) H Sodium Level 142 MMOL/L (136-145) Potassium Level 3.8 MMOL/L (3.5-5.1) Chloride Level 108 MMOL/L (98-107) H Carbon Dioxide Level 24 MMOL/L (21-32) Anion Gap 10 mmol/L (5-15) Blood Urea Nitrogen 19 mg/dL (7-18) H Creatinine 0.7 MG/DL (0.55-1.30) Estimat Glomerular Filtration Rate > 60 mL/min (>60) Glucose Level 146 MG/DL (74-106) H Calcium Level 8.9 MG/DL (8.5-10.1) Total Bilirubin 0.3 MG/DL (0.2-1.0) Aspartate Amino Transf (AST/SGOT) 23 U/L (15-37) Alanine Aminotransferase (ALT/SGPT) 27 U/L (12-78) Alkaline Phosphatase 97 U/L (46-116) C-Reactive Protein, Quantitative 2.0 mg/dL (0.00-0.90) H Total Protein 7.3 G/DL (6.4-8.2) Albumin 3.4 G/DL (3.4-5.0) Globulin 3.9 g/dL Albumin/Globulin Ratio 0.9 (1.0-2.7) L Amylase Level 55 U/L (25-115) Lipase 474 U/L (73-393) H Plan Problems: (1) Pneumonia (2) Hypokalemia (3) SOB (shortness of breath) (4) Sepsis Assessment & Plan: 64-year-old female significant leukocytosis 30,000, anemia, CT as below potential cholecystitis. Surgery called to evaluate. Patient seen patient evaluated chart reviewed patient denies any discomfort. Unable to speak but she can follow directions and mouth or voice herself with facial reactions. When asked about pain denies states she is hungry when palpated in the right upper quadrant denies any pain no abdominal tenderness on examination. Labs noted imaging reviewed. Ultrasound abdomen ordered to evaluate gallbladder more specific than CT scan continue antibiotics per infectious disease IV fluids okay for diet from surgical standpoint Based on clinical examination unlikely cholecystitis no Hardwick's no tenderness no abdominal complaints Potential pneumonia Preventative measures taken air mattress given patient's baseline condition malnutrition and her bedbound condition. OPTi foam presentation dressings applied and bony prominences Turn every 2 hours Nutritional optimization wbc improving labs noted US noted leukocytosis resolved improving HIDA pending The liver and spleen are grossly homogeneous to the extent visualized. Gallstones and small amount of sludge noted. Common bile duct measures 6 mm. Pancreas, aorta and cava are not well visualized right kidneys unremarkable. There is a stone at the lower pole of the left kidney. No hydronephrosis bilaterally. Aorta and cava are within normal limits. ABDOMEN: Liver: Unremarkable. Gallbladder and bile ducts: Several gallstones are noted. There is suggestion of gallbladder wall thickening. No ductal dilation. Pancreas: Unremarkable. No ductal dilation. Spleen: Unremarkable. No splenomegaly. Adrenals: Unremarkable. No mass. Kidneys and ureters: The right renal collecting system is prominent but without lino hydronephrosis. There is a 7 mm nonobstructing stone in the lower pole of the left kidney. Both ureters are normal as seen. Stomach and bowel: A gastrostomy tube is in appropriate position. There is no bowel obstruction. A moderate amount of stool is noted throughout the colon, particularly within the distal sigmoid colon and rectum, possibly representing mild fecal impaction. There are no inflammatory changes in the bowel mesentery.. PELVIS: Appendix: No findings to suggest acute appendicitis. Bladder: There is an indwelling Feldman catheter was is presumed to be clamped as the bladder is moderately distended with fluid, with a small air-fluid level. No stones. Reproductive: There is a 9 mm calcification in the fundus of the uterus, likely small calcified uterine fibroids. The adnexa are unremarkable. ABDOMEN and PELVIS: Intraperitoneal space: Unremarkable. No free air. No significant fluid collection. Bones/joints: No acute fracture. No dislocation. Soft tissues: Unremarkable. Vasculature: Unremarkable. Lymph nodes: There are small calcified lymph nodes in the subcarinal and left hilar regions. IMPRESSION: 1. Cholelithiasis with suggestion of gallbladder wall thickening. Correlation with clinical findings is recommended to assess for the possibility of acute cholecystitis. Ultrasound may be helpful for further assessment. 2. Nonobstructing left renal stone. 3. Possible fecal impaction. 4. Significant atelectasis in the left lower lobe. (5) Chest pain (6) ALS (amyotrophic lateral sclerosis) (7) Elevated troponin Aly Awad Nov 16, 2019 18:05
--- NOTE | 2019-11-16 19:05 | NUR ---
HAND-OFF: Report given to MARCELLUS Rios.
--- NOTE | 2019-11-16 19:09 | NUR ---
RESPIRATORY NOTE: Received pt on AC 16, 450VT, 40%, PEEP +5. Pt is trach-dependent w/ a cuffed, Portex 8 tube. Pt is alert/awake, follows commands. B/S mark. rhonchi, sxn small amounts of thick/thin, pale-yellow secretions. Vent plugged into red outlet, ambubag at bedside. Pt in no apparent distress at this time. Will continue plan of care.
--- NOTE | 2019-11-16 19:30 | NUR ---
"NURSE NOTES: Received report from MARCELLUS Almeida. Patient in bed awake- able to make some needs known, no signs or symptoms of acute cardiac or respiratory distress noted, bed alarm on side rails up x's 3 and safety brakes engaged, manoj light within easy reach, No signs of acute respiratory or cardiac distress noted. Patient appears to be tolerating current vent settings as ordered: A/C 16 | TV 450 | FiO2 40% | Peep 5. Patient noted with g-tube running Glucerna 1.2 at 55 mL/hour- no residual noted, HOB is elevated. Feldman patent and intact draining well to gravity. skin precautions observed, pt. appears clean and dry, Right forearm 22 gauge and Left hand 22 gauge TKO, Patent and intact. Safety precautions implemented: Will continue to monitor pt. and with plan of care."
[2019-11-16 20:00] VITALS: BP 118/69
[2019-11-16] MEDS: Milk of Magnesia 30ml Ud GT SCH (21:08)
[2019-11-16] MEDS: Zolpidem 5mg tab GT PRN (21:30)
[2019-11-17] VITALS: BP 115/73
[2019-11-17] MEDS: HYDROcodone/Acetamin 10/325 tab GT PRN ×3 (01:55→23:21)
[2019-11-17 04:00] VITALS: BP 128/69
[2019-11-17] MEDS: Meropenem 500 MG in NS 55 ML IVPB SCH ×3 (05:00→21:06)
--- NOTE | 2019-11-17 07:07 | NUR ---
HAND-OFF: Report given to AndreaRN, pt. remains stable and no signs of distress noted. Aware to f/u on any am abnormal labs.
--- NOTE | 2019-11-17 07:20 | NUR ---
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 RECEIVED PT WITH HOB ELEVATED 45 DEGREE AWAKE AND ALERT. PT IS TRACH TO VENT DEPENDENT, TOLERATING WELL CURRENT VENT SETTINGS, RENDERED TRACH CARE AND ORAL HYGIEN,MOD AMT OF WHITE THICK SECRETIONS NOTE. PT TOLERATING WELL GLUCERNA 1.2 @ 55CC/HRS CONNECTED TO GTF, NO RESIDUAL NOTED AT THIS TIME NOTE. PT WITH F/C DRAINING WELL YELLOW URINE COLOR . FULL BODY ASSESSMENT DONE.PT REPOSITIONED IN BED MADE COMFORTABLE POSSIBLE. NO ACUTE DISTRESS NOTED AT THIS TIME. WILL CONT TO MONITOR.
--- NOTE | 2019-11-17 07:35 | NUR ---
NURSE NOTES: MARCELLUS Cardoso notified patient positive ESBL sputum,left message for Dr. Manning,on contact isolation
[2019-11-17 08:00] VITALS: BP 118/74
[2019-11-17] MEDS ORDERED: Morphine Sulfate 2mg/ml Inj(IV/IM USE ONLY) IVP SCH (08:15)
--- NOTE | 2019-11-17 09:05 | Pulmonology Progress Note ---
Subjective ROS Limited/Unobtainable: Yes Constitutional: Denies: fever Allergies: Coded Allergies: No Known Allergies (Unverified , 05/19/19) All Systems: reviewed and negative except above Subjective care noted wbc normal ID noted cx noted- reviewed sensitivities HIDA pending Objective Last 24 Hour Vital Signs Date Time Temp Pulse Resp B/P (MAP) Pulse Ox O2 Delivery O2 Flow Rate FiO2 11/17/19 08:20 77 17 100 Mechanical Ventilator 40 11/17/19 08:00 98.2 75 17 118/74 (89) 100 11/17/19 07:26 77 17 40 11/17/19 04:00 40 11/17/19 04:00 Mechanical Ventilator 11/17/19 04:00 97.7 61 18 128/69 (88) 98 11/17/19 03:20 66 11/17/19 02:45 80 16 40 11/17/19 02:25 98.5 11/17/19 00:00 40 11/17/19 00:00 Mechanical Ventilator 11/17/19 00:00 98.5 61 18 115/73 (87) 98 11/16/19 23:32 58 11/16/19 22:51 75 16 40 11/16/19 20:00 Mechanical Ventilator 11/16/19 20:00 40 11/16/19 20:00 76 11/16/19 20:00 40 11/16/19 20:00 Mechanical Ventilator 11/16/19 20:00 97.9 77 20 118/69 (85) 100 11/16/19 19:06 63 16 40 11/16/19 16:00 97.2 79 18 136/76 (96) 98 11/16/19 16:00 Mechanical Ventilator 11/16/19 16:00 80 11/16/19 16:00 40 11/16/19 15:02 89 22 40 11/16/19 12:00 Mechanical Ventilator 11/16/19 12:00 97.0 79 20 121/72 (88) 98 11/16/19 12:00 40 11/16/19 11:15 79 11/16/19 10:54 92 19 40 11/16/19 09:35 82 122/75 Intake and Output 11/16/19 11/17/19 19:00 07:00 Intake Total 730.0 ml 1040 ml Output Total 885 ml 500 ml Balance -155.0 ml 540 ml Free Water 50 ml IV Total 110.0 ml 220 ml Tube Feeding 440 ml 770 ml Other 180 ml Output Urine Total 885 ml 500 ml Objective GENERAL: An ill-appearing female. on vent HEENT: Overall negative. The patient is able to move her eyes. NECK: Supple. Tracheostomy is midline. LUNGS: With moderate air entry. No rhonchi. no wheeze CARDIAC: S1, S2. Regular rate and rhythm without murmurs. ABDOMEN: Soft. G-tube in place. EXTREMITIES: No cyanosis or clubbing. Atrophy noted. NEUROLOGIC: Functional quadriplegic reviewed and edited. Microbiology Date/Time Source Procedure Growth Status 11/14/19 12:00 Nasopharynx Coronavirus COVID-19 PCR ([facility]) - Final Complete Current Medications Medications (Trade) Dose Ordered Sig/Kunal Route PRN Reason Start Time Stop Time Status Last Admin Dose Admin Acetaminophen (Tylenol) 650 mg Q4H PRN GT Mild Pain (Pain Scale 1-3) 11/12/19 05:30 12/12/19 05:29 11/12/19 22:32 Acetaminophen/ Hydrocodone Bitart ([place] 10/325) 1 tab Q8H PRN GT For Pain 11/12/19 05:45 11/19/19 05:44 11/17/19 01:55 Al Hydroxide/Mg Hydroxide (Mylanta) 30 ml Q4H PRN GT stomach upset 11/12/19 05:30 12/12/19 05:29 Amlodipine Besylate (Norvasc) 10 mg DAILY GT 11/12/19 09:00 12/12/19 08:59 11/16/19 09:35 Clonidine HCl (Catapres Tab) 0.1 mg Q4H PRN GT SBP>160 11/12/19 05:45 02/10/20 05:44 Diphenhydramine HCl (Benadryl) 25 mg Q6H PRN GT Itching 11/12/19 05:45 12/12/19 05:44 Heparin Sodium (Porcine) (Heparin 5000 units/ml) 5,000 units EVERY 12 HOURS SUBQ 11/12/19 09:00 12/27/19 08:59 11/16/19 21:09 Lansoprazole (Prevacid) 30 mg DAILY GT 11/12/19 09:00 12/12/19 08:59 11/16/19 09:35 Magnesium Hydroxide (Mom) 30 ml BEDTIME GT 11/12/19 21:00 12/12/19 20:59 11/16/19 21:08 Meropenem 500 mg/ Sodium Chloride 55 ml @ 110 mls/hr EVERY 8 HOURS IVPB 11/16/19 14:00 11/21/19 13:59 11/17/19 05:00 Morphine Sulfate (Morphine Sulfate) 2 mg ONCE IVP 11/17/19 08:15 11/17/19 16:00 Theophylline (Theophylline) 80 mg Q12HR GT 11/12/19 09:00 02/10/20 08:59 11/16/19 21:08 Zolpidem Tartrate (Ambien) 5 mg BEDTIME PRN GT Insomnia 11/12/19 05:45 11/19/19 05:44 11/16/19 21:30 Assessment/Plan Assessment/Plan IMPRESSION: 1. Leukocytosis with concern for sepsis. 2. Possible cholecystitis, cholelithiasis. 3. Functional quadriplegic. 4. ALS. 5. Tracheostomy. 6. G-tube. 7. Mild protein-calorie malnutrition. 8. Anemia. PLAN vent support as is; on AC iv antibiotics routine care as is pain management monitor for change await final cultures AND recommendations hope to dc to snf once HIDA scan results available no wean planned; needs full support position change and monitor skin impression, plan, and exam edited and reviewed in detail care discussed with Stas Granado MD Nov 17, 2019 09:05
--- NOTE | 2019-11-17 09:41 | General Progress Note ---
Assessment/Plan Problem List: (1) Cholecystitis ICD Codes: K81.9 - Cholecystitis, unspecified SNOMED: 92694653 (2) Pneumonia ICD Codes: J18.9 - Pneumonia, unspecified organism SNOMED: 571203006 (3) ALS (amyotrophic lateral sclerosis) ICD Codes: G12.21 - Amyotrophic lateral sclerosis SNOMED: 54005925 (4) Elevated troponin ICD Codes: R79.89 - Other specified abnormal findings of blood chemistry SNOMED: 636949586, 990106308, 674442250 (5) Sepsis ICD Codes: A41.9 - Sepsis, unspecified organism SNOMED: 65246041 Status: stable, progressing Assessment/Plan: cont current rx gt feeds iv abx per id follow up cultures hida scan still pending vent support resp rx skin care turn q2 dvt/stress ulcer prophylaxis Subjective ROS Limited/Unobtainable: Yes Constitutional: Reports: malaise, weakness HEENT: Reports: no symptoms Cardiovascular: Reports: no symptoms Respiratory: Reports: sputum Gastrointestinal/Abdominal: Reports: difficulty swallowing Genitourinary: Reports: no symptoms Neurologic/Psychiatric: Reports: pre-existing deficit Endocrine: Reports: no symptoms Hematologic/Lymphatic: Reports: no symptoms Allergies: Coded Allergies: No Known Allergies (Unverified , 05/19/19) All Systems: reviewed and negative except above Subjective no evens. stable on the vent. no fevers. alert. no distress. tolerating gt feeds. no labs today. cultures noted. Objective Last 24 Hour Vital Signs Date Time Temp Pulse Resp B/P (MAP) Pulse Ox O2 Delivery O2 Flow Rate FiO2 11/17/19 08:20 77 17 100 Mechanical Ventilator 40 11/17/19 08:00 98.2 75 17 118/74 (89) 100 11/17/19 08:00 72 11/17/19 07:26 77 17 40 11/17/19 04:00 40 11/17/19 04:00 Mechanical Ventilator 11/17/19 04:00 97.7 61 18 128/69 (88) 98 11/17/19 03:20 66 11/17/19 02:45 80 16 40 11/17/19 02:25 98.5 11/17/19 00:00 40 11/17/19 00:00 Mechanical Ventilator 11/17/19 00:00 98.5 61 18 115/73 (87) 98 11/16/19 23:32 58 11/16/19 22:51 75 16 40 11/16/19 20:00 Mechanical Ventilator 11/16/19 20:00 40 11/16/19 20:00 76 11/16/19 20:00 40 11/16/19 20:00 Mechanical Ventilator 11/16/19 20:00 97.9 77 20 118/69 (85) 100 11/16/19 19:06 63 16 40 11/16/19 16:00 97.2 79 18 136/76 (96) 98 11/16/19 16:00 Mechanical Ventilator 11/16/19 16:00 80 11/16/19 16:00 40 11/16/19 15:02 89 22 40 11/16/19 12:00 Mechanical Ventilator 11/16/19 12:00 97.0 79 20 121/72 (88) 98 11/16/19 12:00 40 11/16/19 11:15 79 11/16/19 10:54 92 19 40 Intake and Output 11/16/19 11/17/19 19:00 07:00 Intake Total 730.0 ml 1040 ml Output Total 885 ml 500 ml Balance -155.0 ml 540 ml Free Water 50 ml IV Total 110.0 ml 220 ml Tube Feeding 440 ml 770 ml Other 180 ml Output Urine Total 885 ml 500 ml Height (Feet): 5 Height (Inches): 1.00 Weight (Pounds): 106 Objective General Appearance: WD/WN, alert, confused EENT: PERRL/EOMI, normal ENT inspection Neck: non-tender, normal alignment Cardiovascular: normal rate, regular rhythm Respiratory/Chest: chest wall non-tender, lungs clear, normal breath sounds, no respiratory distress Abdomen: normal bowel sounds, non tender, soft, no organomegaly Edema: no edema noted Arm (L), no edema noted Arm (R) Neurologic: alert, responsive, disoriented Skin: normal pigmentation Lymphatic: normal anterior cervical (L), normal anterior cervical (R) Harry Reza MD Nov 17, 2019 09:41
[2019-11-17] MEDS: Theophylline 80mg/15ml GT SCH ×2 (10:08→20:51)
[2019-11-17] MEDS: Heparin 5000 units/ml inj SUBQ SCH ×2 (10:10→20:52)
--- NOTE | 2019-11-17 10:15 | NUR ---
NURSE NOTES: PT LEFT TO NUCLEAR MED DPT VIA BED ON STABLE CONDITIONS,ESCORTED BY PEPE GERMAIN ,TAMMY LANGSTON AND CHOLO MATHUR. DR HODGES CAME TO SEE THE PT PRIOR PT LEFT THE UNIT. WILL CONT TO MONITOR.
--- NOTE | 2019-11-17 10:26 | Infectious Diseases Prog Note ---
"Assessment/Plan Assessment/Plan antibiotics : meropenem A 1. proteus | pseudomonas | acenitobacter pneumonia COVID 19 negative x 2 2. ? cholecystitis 3. respiratory failure 4. leucocytosis resolved 5. dementia P 1. continue meropenem 5 more days 2. will follow up cultures 3. HIDA scan pending Subjective ROS Limited/Unobtainable: Yes Allergies: Coded Allergies: No Known Allergies (Unverified , 05/19/19) Objective Vital Signs Last 24 Hour Vital Signs Date Time Temp Pulse Resp B/P (MAP) Pulse Ox O2 Delivery O2 Flow Rate FiO2 11/17/19 10:08 77 118/74 11/17/19 08:20 77 17 100 Mechanical Ventilator 40 11/17/19 08:00 98.2 75 17 118/74 (89) 100 11/17/19 08:00 72 11/17/19 07:26 77 17 40 11/17/19 04:00 40 11/17/19 04:00 Mechanical Ventilator 11/17/19 04:00 97.7 61 18 128/69 (88) 98 11/17/19 03:20 66 11/17/19 02:45 80 16 40 11/17/19 02:25 98.5 11/17/19 00:00 40 11/17/19 00:00 Mechanical Ventilator 11/17/19 00:00 98.5 61 18 115/73 (87) 98 11/16/19 23:32 58 11/16/19 22:51 75 16 40 11/16/19 20:00 Mechanical Ventilator 11/16/19 20:00 40 11/16/19 20:00 76 11/16/19 20:00 40 11/16/19 20:00 Mechanical Ventilator 11/16/19 20:00 97.9 77 20 118/69 (85) 100 11/16/19 19:06 63 16 40 11/16/19 16:00 97.2 79 18 136/76 (96) 98 11/16/19 16:00 Mechanical Ventilator 11/16/19 16:00 80 11/16/19 16:00 40 11/16/19 15:02 89 22 40 11/16/19 12:00 Mechanical Ventilator 11/16/19 12:00 97.0 79 20 121/72 (88) 98 11/16/19 12:00 40 11/16/19 11:15 79 6/23/20 10:54 92 19 40 Height (Feet): 5 Height (Inches): 1.00 Weight (Pounds): 106 HEENT: status post trach Respiratory/Chest: lungs clear Cardiovascular: normal rate, regular rhythm, no gallop/murmur Abdomen: soft, non tender, other - GT Extremities: no edema Microbiology Date/Time Source Procedure Growth Status 11/14/19 12:00 Nasopharynx Coronavirus COVID-19 PCR ([facility]) - Final Complete Current Medications Medications (Trade) Dose Ordered Sig/Kunal Route PRN Reason Start Time Stop Time Status Last Admin Dose Admin Acetaminophen (Tylenol) 650 mg Q4H PRN GT Mild Pain (Pain Scale 1-3) 11/12/19 05:30 12/12/19 05:29 11/12/19 22:32 Acetaminophen/ Hydrocodone Bitart ([place] 10/325) 1 tab Q8H PRN GT For Pain 11/12/19 05:45 11/19/19 05:44 11/17/19 01:55 Al Hydroxide/Mg Hydroxide (Mylanta) 30 ml Q4H PRN GT stomach upset 11/12/19 05:30 12/12/19 05:29 Amlodipine Besylate (Norvasc) 10 mg DAILY GT 11/12/19 09:00 12/12/19 08:59 11/17/19 10:08 Clonidine HCl (Catapres Tab) 0.1 mg Q4H PRN GT SBP>160 11/12/19 05:45 02/10/20 05:44 Diphenhydramine HCl (Benadryl) 25 mg Q6H PRN GT Itching 11/12/19 05:45 12/12/19 05:44 Heparin Sodium (Porcine) (Heparin 5000 units/ml) 5,000 units EVERY 12 HOURS SUBQ 11/12/19 09:00 12/27/19 08:59 11/17/19 10:10 Lansoprazole (Prevacid) 30 mg DAILY GT 11/12/19 09:00 12/12/19 08:59 11/17/19 10:09 Magnesium Hydroxide (Mom) 30 ml BEDTIME GT 11/12/19 21:00 12/12/19 20:59 11/16/19 21:08 Meropenem 500 mg/ Sodium Chloride 55 ml @ 110 mls/hr EVERY 8 HOURS IVPB 11/16/19 14:00 11/21/19 13:59 11/17/19 05:00 Morphine Sulfate (Morphine Sulfate) 2 mg ONCE IVP 11/17/19 08:15 11/17/19 16:00 Theophylline (Theophylline) 80 mg Q12HR GT 11/12/19 09:00 02/10/20 08:59 11/17/19 10:08 Zolpidem Tartrate (Ambien) 5 mg BEDTIME PRN GT Insomnia 11/12/19 05:45 11/19/19 05:44 11/16/19 21:30 Thai Manning MD Nov 17, 2019 10:26"
--- NOTE | 2019-11-17 11:49 | NUR ---
NURSE NOTES: Doctor Kerri seen patient,aware ESBL sputum,patient on antibiotics Addendum: 11/17/19 at 1150 by Jeane Hobson RN Amended: Links added.
[2019-11-17 12:00] VITALS: BP 146/88
--- NOTE | 2019-11-17 13:41 | Diagnostic Imaging Report ---
Indication: Abdominal Pain Technique: 6 mCi of technetium 99 m-Choletec was injected intravenously. Planar imaging of the abdomen was then performed every 3 minutes up to 60 minutes Findings: There is uptake within the liver with expected washout of radiotracer from the liver on subsequent imaging. There is excretion into the biliary ducts. There is radiotracer accumulation in the gallbladder ingesting patency of the cystic duct. Radiotracer accumulation to the common bile duct, which appears somewhat dilated. No radiotracer is noted within the bowel on the final image of the study. IMPRESSION: No evidence to suggest cystic duct obstruction/cholecystitis. Radiotracer is visualized within the gallbladder. No passage of radiotracer into the bowel. This may be related to sphincter of Oddi dysfunction, choledocholithiasis or downstream obstructing lesion. Correlate with LFTs recommended. Further evaluation with MRCP or ERCP can be obtained as clinically indicated.
--- NOTE | 2019-11-17 14:49 | Surgery Progress Note ---
Surgery Progress Note Subjective Additional Comments HIDA scan in progress exam stable Objective Last 24 Hour Vital Signs Date Time Temp Pulse Resp B/P (MAP) Pulse Ox O2 Delivery O2 Flow Rate FiO2 11/17/19 11:12 114 22 40 11/17/19 10:08 77 118/74 11/17/19 08:20 77 17 100 Mechanical Ventilator 40 11/17/19 08:00 98.2 75 17 118/74 (89) 100 11/17/19 08:00 Mechanical Ventilator 11/17/19 08:00 40 11/17/19 08:00 72 11/17/19 07:26 77 17 40 11/17/19 04:00 40 11/17/19 04:00 Mechanical Ventilator 11/17/19 04:00 97.7 61 18 128/69 (88) 98 11/17/19 03:20 66 11/17/19 02:45 80 16 40 11/17/19 02:25 98.5 11/17/19 00:00 40 11/17/19 00:00 Mechanical Ventilator 11/17/19 00:00 98.5 61 18 115/73 (87) 98 11/16/19 23:32 58 11/16/19 22:51 75 16 40 11/16/19 20:00 Mechanical Ventilator 11/16/19 20:00 40 11/16/19 20:00 76 11/16/19 20:00 40 11/16/19 20:00 Mechanical Ventilator 11/16/19 20:00 97.9 77 20 118/69 (85) 100 11/16/19 19:06 63 16 40 11/16/19 16:00 97.2 79 18 136/76 (96) 98 11/16/19 16:00 Mechanical Ventilator 11/16/19 16:00 80 11/16/19 16:00 40 11/16/19 15:02 89 22 40 I&O Intake and Output 11/16/19 11/17/19 19:00 07:00 Intake Total 730.0 ml 1040 ml Output Total 885 ml 500 ml Balance -155.0 ml 540 ml Free Water 50 ml IV Total 110.0 ml 220 ml Tube Feeding 440 ml 770 ml Other 180 ml Output Urine Total 885 ml 500 ml Dressing: other Wound: other Drains: other Cardiovascular: RSR Respiratory: decreased breath sounds Abdomen: soft, non-tender, present bowel sounds Extremities: edema, no cyanosis Plan Problems: (1) Pneumonia (2) Hypokalemia (3) SOB (shortness of breath) (4) Sepsis Assessment & Plan: 64-year-old female significant leukocytosis 30,000, anemia, CT as below potential cholecystitis. Surgery called to evaluate. Patient seen patient evaluated chart reviewed patient denies any discomfort. Unable to speak but she can follow directions and mouth or voice herself with facial reactions. When asked about pain denies states she is hungry when palpated in the right upper quadrant denies any pain no abdominal tenderness on examination. Labs noted imaging reviewed. Ultrasound abdomen ordered to evaluate gallbladder more specific than CT scan continue antibiotics per infectious disease IV fluids okay for diet from surgical standpoint Based on clinical examination unlikely cholecystitis no Hardwick's no tenderness no abdominal complaints Potential pneumonia Preventative measures taken air mattress given patient's baseline condition malnutrition and her bedbound condition. OPTi foam presentation dressings applied and bony prominences Turn every 2 hours Nutritional optimization wbc improving labs noted US noted leukocytosis resolved improving HIDA pending The liver and spleen are grossly homogeneous to the extent visualized. Gallstones and small amount of sludge noted. Common bile duct measures 6 mm. Pancreas, aorta and cava are not well visualized right kidneys unremarkable. There is a stone at the lower pole of the left kidney. No hydronephrosis bilaterally. Aorta and cava are within normal limits. ABDOMEN: Liver: Unremarkable. Gallbladder and bile ducts: Several gallstones are noted. There is suggestion of gallbladder wall thickening. No ductal dilation. Pancreas: Unremarkable. No ductal dilation. Spleen: Unremarkable. No splenomegaly. Adrenals: Unremarkable. No mass. Kidneys and ureters: The right renal collecting system is prominent but without lino hydronephrosis. There is a 7 mm nonobstructing stone in the lower pole of the left kidney. Both ureters are normal as seen. Stomach and bowel: A gastrostomy tube is in appropriate position. There is no bowel obstruction. A moderate amount of stool is noted throughout the colon, particularly within the distal sigmoid colon and rectum, possibly representing mild fecal impaction. There are no inflammatory changes in the bowel mesentery.. PELVIS: Appendix: No findings to suggest acute appendicitis. Bladder: There is an indwelling Feldman catheter was is presumed to be clamped as the bladder is moderately distended with fluid, with a small air-fluid level. No stones. Reproductive: There is a 9 mm calcification in the fundus of the uterus, likely small calcified uterine fibroids. The adnexa are unremarkable. ABDOMEN and PELVIS: Intraperitoneal space: Unremarkable. No free air. No significant fluid collection. Bones/joints: No acute fracture. No dislocation. Soft tissues: Unremarkable. Vasculature: Unremarkable. Lymph nodes: There are small calcified lymph nodes in the subcarinal and left hilar regions. IMPRESSION: 1. Cholelithiasis with suggestion of gallbladder wall thickening. Correlation with clinical findings is recommended to assess for the possibility of acute cholecystitis. Ultrasound may be helpful for further assessment. 2. Nonobstructing left renal stone. 3. Possible fecal impaction. 4. Significant atelectasis in the left lower lobe. (5) Chest pain (6) ALS (amyotrophic lateral sclerosis) (7) Elevated troponin Aly Awad Nov 17, 2019 14:49
[2019-11-17 16:00] VITALS: BP 150/88
--- NOTE | 2019-11-17 16:36 | NUR ---
CASE MANAGEMENT: REVIEW SI: GRAM NEGATIVE PNEUMONIA . CHOLELITHIASIS T 97.9 HR 114 RR 22 BP 146/88 SAT 100% MECH VENT FIO2 40 HIDA SCAN TODAY IS: MEROPENEM IV Q8HR THEOPHYLLINE GT Q12HR ZOSYN IV Q8HR HEPARIN SUBQ Q12HR STEP DOWN UNIT STATUS DCP: PATIENT IS FROM [facility]
--- NOTE | 2019-11-17 19:20 | NUR ---
HAND-OFF: Report given to .VANITA GERMAIN.
--- NOTE | 2019-11-17 19:21 | NUR ---
NURSE NOTES: Received patient from MARCELLUS Cardoso. Patient is aaox4, vss, on threat monitoring analyst and no signs of distress. Patient is cooperative clean and smiling. Patient is trach to vent sShiley 8 AC 16, FIo2 40%, PEEP of 5. G-tube in place with Glucerna 1.2 running at 55mL/hr. Feldman ion place and draining to gravity. Right forearm 22g and left hand 22g intact and patent with no signs of infection. No skin issues. Bed is at its lowest position, call light in reach, and x3 bed rails are up. Will continue to monitor.
[2019-11-17 20:00] VITALS: BP 123/74
[2019-11-17] MEDS: Milk of Magnesia 30ml Ud GT SCH (20:51)
[2019-11-17] MEDS: Zolpidem 5mg tab GT PRN (21:06)
--- NOTE | 2019-11-17 23:45 | NUR ---
NURSE NOTES: Patient is awake in bed with reduced pain. Pain is 4 out of 10 at this time. Will continue monitor.
[2019-11-18] VITALS: BP 115/73
--- NOTE | 2019-11-18 02:16 | NUR ---
NURSE NOTES: Bed bath and oral care was offered although the patient refused. Will attempt at a later time and continue to monitor.
[2019-11-18 04:00] VITALS: BP 111/67
[2019-11-18] MEDS: Meropenem 500 MG in NS 55 ML IVPB SCH ×3 (05:10→21:32)
--- NOTE | 2019-11-18 06:18 | NUR ---
NURSE NOTES: Bath and oral care provided with no issues.
--- NOTE | 2019-11-18 07:15 | NUR ---
NURSE NOTES:RECEIVED BED SIDE REPORT FROM VANITA GERMAIN STAFF OF [employer]. RECEIVED PT WITH HOB ELEVATED 45 DEGREE AWAKE & ALERT,TRACH TO VENT DEPENDENT,TOLERATING WELL CURRENTS VENT SETTINGS,SAT 100%..PT IS NEGATIVE COVID-19 X2, POSITIVE FOR ESBL IN SPUTUM.DR AUGUSTE CAME TO SEE AT THIS TIME. PT WITH F/C DRAINING WELL YELLOW URINE COLOR. FULL BODY ASSESSMENT DONE. PT REPOSITIONED IN BED TO PROVIDE COMFORT AND TO PREVENT SKIN BREAK DOWN. NO ACUTE DISTRESS NOTED AT THIS TIME.WILL CONT TO MONITOR.
--- NOTE | 2019-11-18 07:16 | NUR ---
HAND-OFF: Report given to MARCELLUS Cardoso.
[2019-11-18 08:00] VITALS: BP 116/69
[2019-11-18] MEDS: Theophylline 80mg/15ml GT SCH ×2 (10:00→21:32)
[2019-11-18] MEDS: Heparin 5000 units/ml inj SUBQ SCH ×2 (10:03→21:33)
--- NOTE | 2019-11-18 10:12 | Pulmonology Progress Note ---
Subjective ROS Limited/Unobtainable: Yes Constitutional: Denies: fever Allergies: Coded Allergies: No Known Allergies (Unverified , 05/19/19) All Systems: reviewed and negative except above Subjective care noted wbc normal ID noted cx noted- reviewed sensitivities HIDA pending Objective Last 24 Hour Vital Signs Date Time Temp Pulse Resp B/P (MAP) Pulse Ox O2 Delivery O2 Flow Rate FiO2 11/18/19 10:01 61 116/69 11/18/19 08:00 97.7 67 17 116/69 (85) 100 11/18/19 08:00 Mechanical Ventilator 11/18/19 08:00 40 11/18/19 08:00 61 11/18/19 07:36 69 16 40 11/18/19 04:00 Mechanical Ventilator 11/18/19 04:00 97.5 67 16 111/67 (82) 100 11/18/19 04:00 40 11/18/19 03:36 58 11/18/19 03:15 65 16 40 11/18/19 00:00 Mechanical Ventilator 11/18/19 00:00 73 11/18/19 00:00 97.7 67 16 115/73 (87) 100 11/17/19 23:51 98.3 11/17/19 23:10 61 16 40 11/17/19 20:00 98.3 71 18 123/74 (90) 100 11/17/19 20:00 40 11/17/19 20:00 Mechanical Ventilator 11/17/19 19:47 73 20 40 11/17/19 19:26 77 11/17/19 16:00 98.2 81 23 150/88 (108) 100 11/17/19 16:00 Mechanical Ventilator 11/17/19 16:00 40 11/17/19 16:00 73 11/17/19 15:49 82 18 40 11/17/19 12:00 97.9 92 21 146/88 (107) 100 11/17/19 12:00 92 11/17/19 12:00 Mechanical Ventilator 11/17/19 12:00 40 11/17/19 11:12 114 22 40 Intake and Output 11/17/19 11/18/19 19:00 07:00 Intake Total 590 ml 920 ml Output Total 800 ml 450 ml Balance -210 ml 470 ml Free Water 150 ml 150 ml IV Total 55 ml 110 ml Tube Feeding 385 ml 660 ml Output Urine Total 800 ml 450 ml # Voids 1 Objective GENERAL: An ill-appearing female. on vent HEENT: Overall negative. The patient is able to move her eyes. NECK: Supple. Tracheostomy is midline. LUNGS: With moderate air entry. No rhonchi. no wheeze CARDIAC: S1, S2. Regular rate and rhythm without murmurs. ABDOMEN: Soft. G-tube in place. EXTREMITIES: No cyanosis or clubbing. Atrophy noted. NEUROLOGIC: Functional quadriplegic reviewed and edited. Current Medications Medications (Trade) Dose Ordered Sig/Kunal Route PRN Reason Start Time Stop Time Status Last Admin Dose Admin Acetaminophen (Tylenol) 650 mg Q4H PRN GT Mild Pain (Pain Scale 1-3) 11/12/19 05:30 12/12/19 05:29 11/12/19 22:32 Acetaminophen/ Hydrocodone Bitart ([place] 10/325) 1 tab Q8H PRN GT For Pain 11/12/19 05:45 11/19/19 05:44 11/17/19 23:21 Al Hydroxide/Mg Hydroxide (Mylanta) 30 ml Q4H PRN GT stomach upset 11/12/19 05:30 12/12/19 05:29 Amlodipine Besylate (Norvasc) 10 mg DAILY GT 11/12/19 09:00 12/12/19 08:59 11/18/19 10:01 Clonidine HCl (Catapres Tab) 0.1 mg Q4H PRN GT SBP>160 11/12/19 05:45 02/10/20 05:44 Diphenhydramine HCl (Benadryl) 25 mg Q6H PRN GT Itching 11/12/19 05:45 12/12/19 05:44 Heparin Sodium (Porcine) (Heparin 5000 units/ml) 5,000 units EVERY 12 HOURS SUBQ 11/12/19 09:00 12/27/19 08:59 11/18/19 10:03 Lansoprazole (Prevacid) 30 mg DAILY GT 11/12/19 09:00 12/12/19 08:59 11/18/19 10:01 Magnesium Hydroxide (Mom) 30 ml BEDTIME GT 11/12/19 21:00 12/12/19 20:59 11/17/19 20:51 Meropenem 500 mg/ Sodium Chloride 55 ml @ 110 mls/hr EVERY 8 HOURS IVPB 11/16/19 14:00 11/22/19 23:59 11/18/19 05:10 Theophylline (Theophylline) 80 mg Q12HR GT 11/12/19 09:00 02/10/20 08:59 11/18/19 10:00 Zolpidem Tartrate (Ambien) 5 mg BEDTIME PRN GT Insomnia 11/12/19 05:45 11/19/19 05:44 11/17/19 21:06 Assessment/Plan Assessment/Plan IMPRESSION: 1. Leukocytosis with concern for sepsis. 2. Possible cholecystitis, cholelithiasis. 3. Functional quadriplegic. 4. ALS. 5. Tracheostomy. 6. G-tube. 7. Mild protein-calorie malnutrition. 8. Anemia. PLAN vent support as is; on AC iv antibiotics routine care as is pain management monitor for change await final cultures AND recommendations hope to dc to snf once HIDA scan results available today no wean planned; needs full support position change and monitor skin impression, plan, and exam edited and reviewed in detail care discussed with Stas Granado MD Nov 18, 2019 10:12
[2019-11-18] MEDS: HYDROcodone/Acetamin 10/325 tab GT PRN ×2 (10:18→21:32)
--- NOTE | 2019-11-18 10:48 | Infectious Diseases Prog Note ---
Assessment/Plan Assessment/Plan A; 1. Cholelithiasis, negative HIDA scan 2. Pseudomonas, Proteus & Acinetobacter pneumonia. COVID19 X 2: negative 3. Respiratory failure.on ventilator 4. Leukocytosis resolved 5. ALS PLAN: 1. Continue Meropenem X 4 days. Subjective ROS Limited/Unobtainable: Yes Constitutional: Denies: fever Allergies: Coded Allergies: No Known Allergies (Unverified , 05/19/19) Objective Vital Signs Last 24 Hour Vital Signs Date Time Temp Pulse Resp B/P (MAP) Pulse Ox O2 Delivery O2 Flow Rate FiO2 11/18/19 10:01 61 116/69 11/18/19 08:00 97.7 67 17 116/69 (85) 100 11/18/19 08:00 Mechanical Ventilator 11/18/19 08:00 40 11/18/19 08:00 61 11/18/19 07:36 69 16 40 11/18/19 04:00 Mechanical Ventilator 11/18/19 04:00 97.5 67 16 111/67 (82) 100 11/18/19 04:00 40 11/18/19 03:36 58 11/18/19 03:15 65 16 40 11/18/19 00:00 Mechanical Ventilator 11/18/19 00:00 73 11/18/19 00:00 97.7 67 16 115/73 (87) 100 11/17/19 23:51 98.3 11/17/19 23:10 61 16 40 11/17/19 20:00 98.3 71 18 123/74 (90) 100 11/17/19 20:00 40 11/17/19 20:00 Mechanical Ventilator 11/17/19 19:47 73 20 40 11/17/19 19:26 77 11/17/19 16:00 98.2 81 23 150/88 (108) 100 11/17/19 16:00 Mechanical Ventilator 11/17/19 16:00 40 11/17/19 16:00 73 11/17/19 15:49 82 18 40 11/17/19 12:00 97.9 92 21 146/88 (107) 100 11/17/19 12:00 92 11/17/19 12:00 Mechanical Ventilator 11/17/19 12:00 40 11/17/19 11:12 114 22 40 Height (Feet): 5 Height (Inches): 1.00 Weight (Pounds): 106 HEENT: status post trach Respiratory/Chest: lungs clear, other - on ventilator Cardiovascular: normal rate Abdomen: soft, non tender, other - Gt tube Neurologic/Psychiatric: alert, responsive Current Medications Medications (Trade) Dose Ordered Sig/Kunal Route PRN Reason Start Time Stop Time Status Last Admin Dose Admin Acetaminophen (Tylenol) 650 mg Q4H PRN GT Mild Pain (Pain Scale 1-3) 11/12/19 05:30 12/12/19 05:29 11/12/19 22:32 Acetaminophen/ Hydrocodone Bitart ([place] 10/325) 1 tab Q8H PRN GT For Pain 11/12/19 05:45 11/19/19 05:44 11/18/19 10:18 Al Hydroxide/Mg Hydroxide (Mylanta) 30 ml Q4H PRN GT stomach upset 11/12/19 05:30 12/12/19 05:29 Amlodipine Besylate (Norvasc) 10 mg DAILY GT 11/12/19 09:00 12/12/19 08:59 11/18/19 10:01 Clonidine HCl (Catapres Tab) 0.1 mg Q4H PRN GT SBP>160 11/12/19 05:45 02/10/20 05:44 Diphenhydramine HCl (Benadryl) 25 mg Q6H PRN GT Itching 11/12/19 05:45 12/12/19 05:44 Heparin Sodium (Porcine) (Heparin 5000 units/ml) 5,000 units EVERY 12 HOURS SUBQ 11/12/19 09:00 12/27/19 08:59 11/18/19 10:03 Lansoprazole (Prevacid) 30 mg DAILY GT 11/12/19 09:00 12/12/19 08:59 11/18/19 10:01 Magnesium Hydroxide (Mom) 30 ml BEDTIME GT 11/12/19 21:00 12/12/19 20:59 11/17/19 20:51 Meropenem 500 mg/ Sodium Chloride 55 ml @ 110 mls/hr EVERY 8 HOURS IVPB 11/16/19 14:00 11/22/19 23:59 11/18/19 05:10 Theophylline (Theophylline) 80 mg Q12HR GT 11/12/19 09:00 02/10/20 08:59 11/18/19 10:00 Zolpidem Tartrate (Ambien) 5 mg BEDTIME PRN GT Insomnia 11/12/19 05:45 11/19/19 05:44 11/17/19 21:06 Bebeto Hartley MD Nov 18, 2019 10:48
--- NOTE | 2019-11-18 10:53 | NUR ---
RD ASSESSMENT & RECOMMENDATIONS SEE CARE ACTIVITY FOR COMPLETE ASSESSMENT DAILY ESTIMATED NEEDS: Needs based on Critical care, 48kg 22-28 kcals/kg 8238-1511 total kcals 1.2-2 g protein/kg 58-96 g total protein 25-30 mL/kg 7237-5728 total fluid mLs NUTRITION DIAGNOSIS: Swallowing difficulty r/t respiratory status as evidenced by pt w/ ALS, vent dep via trach, w/ GT feeds. CURRENT TF:Glucerna 1.2 @55ml/hr x20 hrs ENTERAL NUTRITION RECOMMENDATIONS: Glucerna 1.2 @ 55ml/hr x20 hrs to provide 1100ml, 1320 kcal, 66g pro, 886ml free H2O - Maintain current TF order - HOB over 30 degrees - Water flush of 170ml q 8hrs ADDITIONAL RECOMMENDATIONS: 1) Per SN[facility] record: last ou=[id number] (10/28), HT=61" 2) Check lytes daily, replete as needed 3) Rec NISS for BG control 4) Check A1C for eval of glycemic control .
--- NOTE | 2019-11-18 11:41 | NUR ---
*-*DISCHARGE PLANNING*-* PATIENT HAS BEEN REFERRED BACK TO: [facility] P: [phone]
[2019-11-18 12:00] VITALS: BP 131/73
--- NOTE | 2019-11-18 12:56 | NUR ---
*-*DISCHARGE PLANNING*-* PATIENT HAS BEEN REFERRED BACK TO: [facility] P: [phone] S/W GREG, STATED WILL CALL BACK AFTER REVIEW WITH
--- NOTE | 2019-11-18 14:38 | Surgery Progress Note ---
Surgery Progress Note Subjective Symptoms: improved, tolerating diet, passing flatus Objective Last 24 Hour Vital Signs Date Time Temp Pulse Resp B/P (MAP) Pulse Ox O2 Delivery O2 Flow Rate FiO2 11/18/19 12:00 71 11/18/19 12:00 97.6 69 17 131/73 (92) 100 11/18/19 12:00 Mechanical Ventilator 11/18/19 12:00 40 11/18/19 11:38 61 16 40 11/18/19 10:48 97.7 11/18/19 10:01 61 116/69 11/18/19 08:00 97.7 67 17 116/69 (85) 100 11/18/19 08:00 Mechanical Ventilator 11/18/19 08:00 40 11/18/19 08:00 61 11/18/19 07:36 69 16 40 11/18/19 04:00 Mechanical Ventilator 11/18/19 04:00 97.5 67 16 111/67 (82) 100 11/18/19 04:00 40 11/18/19 03:36 58 11/18/19 03:15 65 16 40 11/18/19 00:00 Mechanical Ventilator 11/18/19 00:00 73 11/18/19 00:00 97.7 67 16 115/73 (87) 100 11/17/19 23:10 61 16 40 11/17/19 20:00 98.3 71 18 123/74 (90) 100 11/17/19 20:00 40 11/17/19 20:00 Mechanical Ventilator 11/17/19 19:47 73 20 40 11/17/19 19:26 77 11/17/19 16:00 98.2 81 23 150/88 (108) 100 11/17/19 16:00 Mechanical Ventilator 11/17/19 16:00 40 11/17/19 16:00 73 11/17/19 15:49 82 18 40 I&O Intake and Output 11/17/19 11/18/19 19:00 07:00 Intake Total 590 ml 920 ml Output Total 800 ml 450 ml Balance -210 ml 470 ml Free Water 150 ml 150 ml IV Total 55 ml 110 ml Tube Feeding 385 ml 660 ml Output Urine Total 800 ml 450 ml # Voids 1 Dressing: dry Wound: clean Cardiovascular: RSR Respiratory: clear, decreased breath sounds Abdomen: soft, non-tender, present bowel sounds Extremities: no tenderness, no cyanosis Plan Problems: (1) Pneumonia (2) Hypokalemia (3) SOB (shortness of breath) (4) Sepsis Assessment & Plan: 64-year-old female significant leukocytosis 30,000, anemia, CT as below potential cholecystitis. Surgery called to evaluate. Patient seen patient evaluated chart reviewed patient denies any discomfort. Unable to speak but she can follow directions and mouth or voice herself with facial reactions. When asked about pain denies states she is hungry when palpated in the right upper quadrant denies any pain no abdominal tenderness on examination. Labs noted imaging reviewed. Ultrasound abdomen ordered to evaluate gallbladder more specific than CT scan continue antibiotics per infectious disease IV fluids okay for diet from surgical standpoint Based on clinical examination unlikely cholecystitis no Hardwick's no tenderness no abdominal complaints Potential pneumonia Preventative measures taken air mattress given patient's baseline condition malnutrition and her bedbound condition. OPTi foam presentation dressings applied and bony prominences Turn every 2 hours Nutritional optimization wbc improving labs noted US noted leukocytosis resolved improving HIDA pending The liver and spleen are grossly homogeneous to the extent visualized. Gallstones and small amount of sludge noted. Common bile duct measures 6 mm. Pancreas, aorta and cava are not well visualized right kidneys unremarkable. There is a stone at the lower pole of the left kidney. No hydronephrosis bilaterally. Aorta and cava are within normal limits. ABDOMEN: Liver: Unremarkable. Gallbladder and bile ducts: Several gallstones are noted. There is suggestion of gallbladder wall thickening. No ductal dilation. Pancreas: Unremarkable. No ductal dilation. Spleen: Unremarkable. No splenomegaly. Adrenals: Unremarkable. No mass. Kidneys and ureters: The right renal collecting system is prominent but without lino hydronephrosis. There is a 7 mm nonobstructing stone in the lower pole of the left kidney. Both ureters are normal as seen. Stomach and bowel: A gastrostomy tube is in appropriate position. There is no bowel obstruction. A moderate amount of stool is noted throughout the colon, particularly within the distal sigmoid colon and rectum, possibly representing mild fecal impaction. There are no inflammatory changes in the bowel mesentery.. PELVIS: Appendix: No findings to suggest acute appendicitis. Bladder: There is an indwelling Feldman catheter was is presumed to be clamped as the bladder is moderately distended with fluid, with a small air-fluid level. No stones. Reproductive: There is a 9 mm calcification in the fundus of the uterus, likely small calcified uterine fibroids. The adnexa are unremarkable. ABDOMEN and PELVIS: Intraperitoneal space: Unremarkable. No free air. No significant fluid collection. Bones/joints: No acute fracture. No dislocation. Soft tissues: Unremarkable. Vasculature: Unremarkable. Lymph nodes: There are small calcified lymph nodes in the subcarinal and left hilar regions. IMPRESSION: 1. Cholelithiasis with suggestion of gallbladder wall thickening. Correlation with clinical findings is recommended to assess for the possibility of acute cholecystitis. Ultrasound may be helpful for further assessment. 2. Nonobstructing left renal stone. 3. Possible fecal impaction. 4. Significant atelectasis in the left lower lobe. (5) Chest pain (6) ALS (amyotrophic lateral sclerosis) (7) Elevated troponin Aly Awad Nov 18, 2019 14:38
--- NOTE | 2019-11-18 15:41 | NUR ---
*-*DISCHARGE PLANNED*-* PATIENT HAS BEEN ACCEPTED AND WILL BE DISCHARGED BACK TO: [facility] P: [phone] FOR NURSE TO NURSE REPORT ROOM# 207.[facility] TRANSPORTATION SET FOR 5:30PM S/W EULALIO S/W PATIENTS SON RAHAT HART, WHO IS IN AGREEMENT WITH DISCHARGE PLAN.
[2019-11-18 16:00] VITALS: BP 134/88
--- NOTE | 2019-11-18 16:16 | General Progress Note ---
Assessment/Plan Problem List: (1) Cholecystitis ICD Codes: K81.9 - Cholecystitis, unspecified SNOMED: 82832247 (2) Pneumonia ICD Codes: J18.9 - Pneumonia, unspecified organism SNOMED: 292916433 (3) ALS (amyotrophic lateral sclerosis) ICD Codes: G12.21 - Amyotrophic lateral sclerosis SNOMED: 30604971 (4) Elevated troponin ICD Codes: R79.89 - Other specified abnormal findings of blood chemistry SNOMED: 141235022, 959821125, 020992907 (5) Sepsis ICD Codes: A41.9 - Sepsis, unspecified organism SNOMED: 56210982 Status: stable, progressing Assessment/Plan: cont current rx gt feeds iv abx per id. 4 more days. follow up cultures hida scan negative- cholecystitis unlikely vent support resp rx skin care turn q2 dvt/stress ulcer prophylaxis Subjective ROS Limited/Unobtainable: Yes Constitutional: Reports: malaise, weakness HEENT: Reports: no symptoms Cardiovascular: Reports: no symptoms Respiratory: Reports: cough Gastrointestinal/Abdominal: Reports: difficulty swallowing Genitourinary: Reports: no symptoms Neurologic/Psychiatric: Reports: pre-existing deficit Endocrine: Reports: no symptoms Hematologic/Lymphatic: Reports: anemia Allergies: Coded Allergies: No Known Allergies (Unverified , 05/19/19) All Systems: reviewed and negative except above Subjective no evens. stable on the vent. no fevers. alert. no distress. tolerating gt feeds. no vomiting. remains on iv abx, minimal congestion. ID and pulm noted. Objective Last 24 Hour Vital Signs Date Time Temp Pulse Resp B/P (MAP) Pulse Ox O2 Delivery O2 Flow Rate FiO2 11/18/19 15:07 74 17 40 11/18/19 12:00 71 11/18/19 12:00 97.6 69 17 131/73 (92) 100 11/18/19 12:00 Mechanical Ventilator 11/18/19 12:00 40 11/18/19 11:38 61 16 40 11/18/19 10:48 97.7 11/18/19 10:01 61 116/69 11/18/19 08:00 97.7 67 17 116/69 (85) 100 11/18/19 08:00 Mechanical Ventilator 11/18/19 08:00 40 11/18/19 08:00 61 11/18/19 07:36 69 16 40 11/18/19 04:00 Mechanical Ventilator 11/18/19 04:00 97.5 67 16 111/67 (82) 100 11/18/19 04:00 40 11/18/19 03:36 58 11/18/19 03:15 65 16 40 11/18/19 00:00 Mechanical Ventilator 11/18/19 00:00 73 11/18/19 00:00 97.7 67 16 115/73 (87) 100 11/17/19 23:10 61 16 40 11/17/19 20:00 98.3 71 18 123/74 (90) 100 11/17/19 20:00 40 11/17/19 20:00 Mechanical Ventilator 11/17/19 19:47 73 20 40 11/17/19 19:26 77 Intake and Output 11/17/19 11/18/19 19:00 07:00 Intake Total 590 ml 920 ml Output Total 800 ml 450 ml Balance -210 ml 470 ml Free Water 150 ml 150 ml IV Total 55 ml 110 ml Tube Feeding 385 ml 660 ml Output Urine Total 800 ml 450 ml # Voids 1 Height (Feet): 5 Height (Inches): 1.00 Weight (Pounds): 106 Objective General Appearance: WD/WN, alert, confused EENT: PERRL/EOMI, normal ENT inspection Neck: non-tender, normal alignment Cardiovascular: normal rate, regular rhythm Respiratory/Chest: chest wall non-tender, lungs clear, normal breath sounds, no respiratory distress Abdomen: normal bowel sounds, non tender, soft, no organomegaly Edema: no edema noted Arm (L), no edema noted Arm (R) Neurologic: alert, responsive, disoriented Skin: normal pigmentation Lymphatic: normal anterior cervical (L), normal anterior cervical (R) Harry Reza MD Nov 18, 2019 16:16
--- NOTE | 2019-11-18 16:58 | NUR ---
NURSE NOTES: PLACED A TELEPHONE CALL TO [facility] AND REPORT GIVEN TO LADI GERMAIN IN CHARGE.
--- NOTE | 2019-11-18 17:06 | NUR ---
*-*DISCHARGE PLANNED*-* PATIENT HAS BEEN ACCEPTED AND WILL BE DISCHARGED BACK TO: [facility] P: [phone] FOR NURSE TO NURSE REPORT ROOM# 207.[facility] TRANSPORTATION SET FOR 6PM S/W TAYA S/W PATIENTS SON RAHAT HART, WHO IS IN AGREEMENT WITH DISCHARGE PLAN.
[2019-11-18] MEDS ORDERED: FAMOTIDINE40 MG GT (18:22)
[2019-11-18] MEDS ORDERED: SUPPORT118 ML GT (18:22)
[2019-11-18] MEDS ORDERED: POTASSIUM40 MEQ/11 GT (18:22)
[2019-11-18] MEDS ORDERED: DIPHENHYDRAMINE25 M3 GT (18:22)
[2019-11-18] MEDS ORDERED: ASPIRIN81 MG GT (18:22)
[2019-11-18] MEDS ORDERED: GUAIFENESIN DM118 M1 GT (18:22)
[2019-11-18] MEDS ORDERED: NORCO 5-325 TA1 EAC1 GT (18:22)
[2019-11-18] MEDS ORDERED: ACETAMINOPHEN325 M1 GT ×2 (18:22)
--- NOTE | 2019-11-18 19:16 | NUR ---
HAND-OFF: Report given to .LESLIE GERMAIN.
--- NOTE | 2019-11-18 19:17 | NUR ---
NURSE NOTES: Received patient and report from MARCELLUS Cardoso. Patient is observed resting in bed and remains oriented x3-4. No pain noted upon assessment. Pt is currently trach to vent; vent settings as follows: AC 16 TV 450 FiO2 40 PEEP 5 with an O2 saturation of 100% noted. Pt appears to be tolerating settings well with no s/sx of acute distress noted. Bilateral lower lobe breath sounds noted to be diminished upon auscultation. Pt noted to be SR on tele monitor with a current HR of 79 and no s/sx of acute distress noted. Feldman catheter noted which remains intact, patent and draining urine to gravity. R FA 22g and R hand 22g IV catheters noted which remains asymptomatic, intact and patent. GT noted which remain intact and patent with GT Feeding running as prescribed. Bowel sounds noted in all four quadrants, abdomen remains soft, flat and non-tender. Diagnostics reviewed at bedside. Skin alterations noted. Pt repositioned for comfort and safety. Fall, Aspiration and Skin precautions observed. Pt remains resting in bed; Bed remains in the lowest position with the safety wheels engaged, call light within reach, side rails up x3 and bed alarm activated. Will continue plan of care. Will continue to monitor. Awaiting transport from [facility] for D/C anticipated arrival time is 1929.
--- NOTE | 2019-11-18 19:52 | NUR ---
NURSE NOTES: Followed up with [facility] and new anticipated arrival time is now 2009 Will continue plan of care. Will continue to monitor.
[2019-11-18 20:00] VITALS: BP 141/73
--- NOTE | 2019-11-18 20:00 | NUR ---
NURSE NOTES: MOM held pt noted to have a small amount of liquid stool leaking from rectum. Pt provided with a partial bed bath and linen change. Pt remains resting in bed; bed remains in lowest position with safety wheels engaged, bed alarm activated, side rails up x3 and call light within reach. Will continue plan of care. Will continue to monitor.
[2019-11-18] MEDS: Milk of Magnesia 30ml Ud GT SCH (21:00)
--- NOTE | 2019-11-18 21:32 | NUR ---
NURSE NOTES: Pt c/o pain noted to be moderate and aching in nature. Pt used communication board in order to ensure needs were met. Estero administered as ordered per pt request for pain. No adverse effects noted at this time. VS remain stable. Will continue to monitor.
--- NOTE | 2019-11-18 22:00 | NUR ---
NURSE NOTES: Bedside assessment performed. Pt was assessed for pain using FLACC scale with a score of 0 noted. Pt provided with oral care and suctioning for excess secretions. ROM exercises provided per patient tolerance. Pt repositioned for comfort and safety. Fall, Aspiration and Skin precautions observed. Pt remains resting in bed; Bed remains in the lowest position with the safety wheels engaged, call light within reach, side rails up x3 and bed alarm activated. Will continue plan of care. Will continue to monitor.
--- NOTE | 2019-11-18 23:10 | NUR ---
INTER-FACILITY TRANSFER: Patient transferred to [facility], per discharge order. Pt transferred via [id number]. Report given to MARCELLUS Acuna. VS remain stable at this time. Patient transferred with valuables. Belongings verified upon transferr and given to MARCELLUS Acuna. Family notified of transfer.
[2019-11-18] MEDS ORDERED: Tubing IV Secondary IV ONE (23:22)
[2019-11-18] MEDS ORDERED: NS 275ml ONE (23:22)
--- NOTE | 2019-11-21 16:57 | Discharge Summary ---
Discharge Summary Discharge Summary _ DATE OF ADMISSION: 11/12/2019 DATE OF DISCHARGE: 11/18/2019 DISCHARGED BY: Dr. Reza REASON FOR ADMISSION: 64 years old female with past medical history of chronic respiratory failure, ventilator dependent, with tracheostomy status, ALS, quadriplegia, dysphagia, feeding by G-tube, was transferred from the nursing home facility due to abdominal pain and leukocytosis. At the [facility] WBC was 30. CT scan of the abdomen and pelvis in the emergency department revealed cholelithiasis with suggestion of gallbladder wall thickening. Possible acute cholecystitis. Possible fecal impaction. Significant atelectasis in the left lower lobe. There was also a patchy opacity in the right lower lobe, including nodular opacity , which may be inflammatory in etiology. Chest x-ray demonstrated dense retrocardiac consolidation, which may be related to atelectasis and /or pneumonia. Additional patchy opacity in the right lower lung. Possibility of multifocal pneumonia not excluded. Laboratory work-up revealed WBC 30.9, hemoglobin 11.5, hematocrit 35.8, platelet count 231. Lactic acid 1.6. Potassium 3.4. BUN 19, creatinine 0.4. Glucose 140. Troponin negative. Urinalysis revealed +1 leukocyte esterase, no pyuria , no bacteria. CONSULTANTS: pulmonary Dr. Antwon LOGAN specialist Dr. Kerri Awad [facility] H[facility]PITAL COURSE: Patient admitted to [facility]. Ventilator support and tracheostomy care provided. Pulmonary toilet provided. Surgeon evaluated for possible cholecystitis. Abdominal ultrasound demonstrated gallstones and small amount of sludge. Patient subsequently undergone HIDA scan Antibiotic provided as per ID recommendation. IV fluids provided. Patient slowly started on diet as per surgeon recommendations, based on clinical examination . Acute cholecystitis was unlikely given absence of Hardwick sign , no tenderness and no abdominal complaints. Antibiotic provided as per ID recommendation. Patient initially was tested for COVID-19, which was not detected. Blood cultures were negative on 11/11. Sputum culture revealed Pseudomonas and Acinetobacter complex. Repeated COVID-19 by PCR was not detected as well. LFT remained stable. Pain management addressed. DVT and GI prophylaxis provided. ID recommended to continue antibiotic upon discharge to complete the course. Ventilator support and pulmonary toilet provided. Tracheostomy care provided. No weaning was planned, since patient required full support. Supportive care provided. DVT and GI prophylaxis provided. Bowel regimen instituted. SNF medication continued. Patient clinically stabilized and was ready for discharge back to nursing home facility for continuation of care . FINAL DIAGNOSES: Leukocytosis Proteus, Pseudomonas, Acinetobacter pneumonia Suspected COVID-19 -ruled out Cholelithiasis , possible cholecystitis Chronic respiratory failure, ventilator dependent Dysphagia , feeding by G-tube Dementia DISCHARGE MEDICATIONS: List of medication was sent to accepting facility DISCHARGE INSTRUCTIONS: Patient was discharged to the nursing home facility. Follow up with medical doctor at the facility. I have been assigned to dictate discharge summary for this account. I was not involved in the patient's management. Najma Can NP Nov 21, 2019 16:57
--- NOTE | 2019-11-25 10:11 | CDS Physician Query ---
Clarification is required for compliance, coding accuracy, and to reflect severity of illness for this patient. Dear Dr. Harry Reza MD Date: 11/25/2019 CDI/CDS : Edenilson Mariee Clinical Documentation States: 64-year-old female. She has a history of chronic respiratory failure, is vent dependent. She has a history of ALS, quadriplegia, and dysphagia. She was transferred from a snf facility with complaints of abdominal pain and leukocytosis. ASSESSMENT: This is an unfortunate elderly female with a history of chronic respiratory failure, ALS, dysphagia, admitted with complaints of sepsis secondary to cholecystitis and possible pneumonia. DISCHARGE SUMMARY: Leukocytosis, Proteus, Pseudomonas, Acinetobacter pneumonia, COVID-19 -ruled out, Cholelithiasis , possible cholecystitis, Chronic respiratory failure, ventilator dependent, Dysphagia , feeding by G-tube, Dementia Clinical finding show: Vitals (11/11):T-98.6F, Pulse - 101, RR - 26 Lab (11/11): Hemat ; WBC - 30.9, Neut% 87.0 Chem ; Glucose - 140, Lactic Acid 1.60 Microbiology (11/11): SPUTU; PSEUDOMONAS AERUGINOSA GROWTH: 4+, ACINETOBACTER BAUMANNII COMPLX GROWTH: 4+ PROTEUS MIRABILIS ESBL GROWTH: 4+ Medications: Azithromycin 500 IV (11/11), Vancomycin 750 IV (11/11-11/17), Piperacillin Sod 110 IV (11/11-11/15) Please indicate below the status of the aforementioned diagnosis. [ ] Ruled IN [ ] Ruled OUT [ ] Other: Present on Admission: [] Yes [] No [] Clinically Undetermined Physician signature Date Please also document in your Progress Notes and/or Discharge Summary and indicate if the condition was present on admission. SAMMD
== END 2019-11-18 23:23 | DRG 870 ==
LOC: EDBD 00:20 → EMR 00:40 → 2W 03:34 → EDBEDREQ 03:56
PROC: 5A1955Z Respiratory Ventilation, Greater than 96 Consecutive Hours (ICD-10-PCS; principal; 2019-11-12)
DX: A41.9 Sepsis, unspecified organism (principal); J96.90 Respiratory failure, unspecified, unspecified whether with hypoxia or hypercapnia; J15.1 Pneumonia due to Pseudomonas; J15.6 Pneumonia due to other Gram-negative bacteria; R53.2 Functional quadriplegia; K80.19 Calculus of gallbladder with other cholecystitis with obstruction; G12.21 Amyotrophic lateral sclerosis; E44.1 Mild protein-calorie malnutrition; Z43.1 Encounter for attention to gastrostomy; E46 Unspecified protein-calorie malnutrition; Z93.1 Gastrostomy status; D64.9 Anemia, unspecified; E87.6 Hypokalemia; N20.0 Calculus of kidney; K81.9 Cholecystitis, unspecified; K56.41 Fecal impaction; R13.10 Dysphagia, unspecified
CPT/HCPCS: 36415; 71045; 74176; 76700; 78266; 80048; 80053; 81003; 82150; 82550; 82553; 83605; 83690; 83880; 84484; 85007; 85025; 85610; 85651; 85730; 86140; 87040; 87070; 87081; 87181; 87205; 93005; 94002; 94003; 94664; 96361; 96365; 96367; 99291; J7030; J8499